=== PATIENT | female | born 1950 | race Caucasian/White ===

== ENCOUNTER 2017-03-26 20:31 | Emergency (ER) | payer MEDICARE, BC ==
[2017-03-26 20:40] VITALS: BP 135/53
--- NOTE | 2017-03-26 20:56 | EDM.PDOC ---
ED HPI GENERAL MEDICAL PROBLEM - General Chief Complaint: General Stated Complaint: back pain and SOB Time Seen by Provider: 03/26/17 20:45 Source of Information: Reports: Patient, Old Records ([facility] chart/EMR) - History of Present Illness INITIAL COMMENTS - FREE TEXT/NARRATIVE: The patient was brought to the emergency room via private automobile by her for evaluation of 8/10 sharp burning sensation in her left posterior chest wall region with no history of fall, injury, local rash, etc. Her symptoms woke her up at about 2:30 AM this past evening with last Tylenol dosage of 1000 mg at 18:00 hours this evening. She has also used some topical BioFreeze and heat with no significant improvement in symptoms. The patient denies any chest pain/pressure, heart flutter, dizziness, orthostasis, orthopnea , diaphoresis, paresthesias, recent decreased exercise tolerance, or any other anginal-type symptoms. No recent history of abdominal pain, heartburn, nausea, diarrhea, melena, gross hematochezia, or any food intolerance, including fatty foods, etc.. The patient also denies any recent fever, cough, wheezing, dyspnea , etc.. Note that the patient was recently treated for a UTI and completed doxycycline therapy on 03/24/17 with negative follow-up UA with her regular provider on that day by her history Onset: Today Onset Date: 03/26/17 Onset Time: 02:30 Duration: Constant Location: Reports: Chest (Posterior left chest region as above). Denies: Head, Face, Neck, Abdomen, Back, Pelvis, Upper Extremity, Left, Upper Extremity, Right , Lower Extremity, Left, Lower Extremity, Right, Radiates to Quality: Reports: Ache, Burning, Sharp Severity: Moderate Improves with: Reports: Rest Worsens with: Reports: Movement Context: Reports: Other (As above) Associated Symptoms: Reports: No Other Symptoms, Fever/Chills (Nonspecific as above). Denies: Confusion, Chest Pain, Cough, cough w sputum, Diaphoresis, Headaches, Loss of Appetite, Malaise, Nausea/Vomiting, Rash, Seizure, Shortness of Breath, Weakness Treatments CARE MANAGEMENT ASSOCIATE: Reports: Acetaminophen Bilateral Posterior Back Pain Score (Numeric/FACES): 8 - Related Data Allergies Allergy/AdvReac Type Severity Reaction Status Date / Time aspartame Allergy Anaphylactic Verified 03/26/17 21:02 Shock banana Allergy Shortness Verified 03/26/17 21:02 of Breath bee venom protein (honey bee) Allergy Shortness Verified 03/26/17 21:02 of Breath ciprofloxacin [From Cipro] Allergy Shortness Verified 03/26/17 21:02 of Breath clarithromycin [From Biaxin] Allergy Hives Verified 03/26/17 21:02 clindamycin Allergy Vomiting Verified 03/26/17 21:02 codeine Allergy Vomiting Verified 03/26/17 21:02 egg Allergy Vomiting Verified 03/26/17 21:02 erythromycin base Allergy Hives Verified 03/26/17 21:02 iodine Allergy Anaphylactic Verified 03/26/17 21:02 Shock levofloxacin [From Levaquin] Allergy Bronchospas Verified 03/26/17 21:02 ms lincomycin [From Lincocin] Allergy Shortness Verified 03/26/17 21:02 of Breath minerals [From Enviro Stress] Allergy Shortness Verified 03/26/17 21:02 of Breath mold Allergy Shortness Verified 03/26/17 21:02 of Breath nitrofurantoin Allergy Shortness Verified 03/26/17 21:02 [From Macrodantin] of Breath orange Allergy Swelling Verified 03/26/17 21:02 Penicillins Allergy Shortness Verified 03/26/17 21:02 of Breath shrimp Allergy Wheezing Verified 03/26/17 21:02 Sulfa (Sulfonamide Allergy Hives Verified 03/26/17 21:02 Antibiotics) vitamin B complex and C Allergy Shortness Verified 03/26/17 21:02 [From Enviro Stress] of Breath vitamin E (d-alpha Allergy Shortness Verified 03/26/17 21:02 tocopherol) of Breath [From Enviro Stress] CT dye Allergy Shortness Uncoded 03/26/17 21:05 of Breath Home Meds: Home Meds Acetaminophen [Tylenol Extra Strength] 500 mg PO Q4H PRN 03/26/17 [History] Albuterol [IJD: Ventolin HFA] 2 inh PO Q4H PRN 03/26/17 [History] Ascorbic Acid [Vitamin C] 1,000 mg PO DAILY 03/26/17 [History] Aspirin [Halfprin] 81 mg PO DAILY 03/26/17 [History] Calcium Carbonate [Calcium] 500 mg PO DAILY 03/26/17 [History] Cholecalciferol (Vitamin D3) [Vitamin D3] 2,000 unit PO DAILY 03/26/17 [History] Denosumab [Prolia] 60 mg SUBCUT Q180D 03/26/17 [History] Digoxin [Digox] 125 mcg PO Q2D 03/26/17 [History] Digoxin [Digox] 250 mcg PO Q2D 03/26/17 [History] Fish Oil/[place]-3 Fatty Acids [Fish Oil 1,000 MG] 1 tab PO DAILY 03/26/17 [ History] Fluticasone Propionate [Flonase] 0 gm NASBOTH DAILY 03/26/17 [History] Hydrocodone/Acetaminophen [[place] 5-325] 1 tab PO Q4H PRN 03/26/17 [History] Lanolin/Mineral Oil [Eucerin Original Lotion] 250 ml TP BID PRN 03/26/17 [ History] Levalbuterol HCl [Xopenex] 0.63 mg NEB Q4HRRT PRN 03/26/17 [History] Metoprolol Tartrate [Lopressor] 12.5 mg PO DAILY 03/26/17 [History] Mometasone Furoate [Asmanex 220 MCG] 14 puff INH DAILY 03/26/17 [History] Montelukast [Singulair] 10 mg PO BEDTIME 03/26/17 [History] Multivit with Calcium,Iron,Min [Essential Daily] 1 each PO DAILY 03/26/17 [ History] Mupirocin Oint [Bactroban Oint] 22 gm TOP TID PRN 03/26/17 [History] Omeprazole 40 mg PO DAILY 03/26/17 [History] Theophylline [Theophylline Anhydrous] 300 mg PO BID 03/26/17 [History] Ubidecarenone [Coenzyme Q-10] 50 mg PO BEDTIME 03/26/17 [History] Vitamin E 400 unit PO DAILY 03/26/17 [History] diphenhydrAMINE HCl [Benadryl] 25 mg PO Q4H PRN 03/26/17 [History] Past Medical History HEENT History: Reports: Allergic Rhinitis, Cataract, Other (See Below). Denies : Glaucoma, Hard of Hearing, Impaired Vision, Macular Degeneration Other HEENT History: Mild beginning cataracts with no surgery to this point, patient wears glasses Cardiovascular History: Reports: Arrhythmia, Heart Murmur, High Cholesterol, Other (See Below). Denies: Afib, Aneurysm, Blood Clots/VTE/DVT, CAD, Heart Failure, Hypertension, [place], Pacemaker, PVD Other Cardiovascular History: Sinus arrhythmia and PSVT, benign heart murmur as a child, borderline hyperlipidemia with no medical therapy, varicose veins Respiratory History: Reports: Asthma, Bronchitis, Recurrent, COPD, Pneumonia, Recurrent, Sleep Apnea, Other (See Below). Denies: PE, Pneumothorax, TB Other Respiratory History: Sleep apnea with patient not tolerating CPAP however she does use O2 at night Gastrointestinal History: Reports: Cholelithiasis, Chronic Constipation, Chronic Diarrhea, Colon Polyp, Diverticulosis, Gastritis, GERD, GI Bleed, Irritable Bowel Syndrome, PUD, Other (See Below). Denies: Celiac Disease, Hepatitis, Helicobacter Pylori, Inflammatory Bowel Disease, Jaundice, Pancreatitis Other Gastrointestinal History: Peptic ulcer disease with history of GI bleed in the 1980s, sigmoid diverticulosis Genitourinary History: Reports: Renal Calculus, UTI, Recurrent, Other (See Below ). Denies: Acute Renal Failure, Chronic Renal Insuffiency, Retention, Urinary, STD, Urinary Incontinence Other Genitourinary History: Recurrent bilateral urolithiasis : 1 Para: 1 ( delivery at 7 one half months gestation secondary to a fall during ) LMP (Approximate): Menopausal (Age 53) Musculoskeletal History: Reports: Arthritis, Back Pain, Chronic, Fracture, Fibromyalgia, Neck Pain, Chronic, Osteoarthritis, Osteoporosis, RA, Other (See Below). Denies: Amputation, Gout, SLE Other Musculoskeletal History: Complex right radial and ulnar fracture in 3 different places at about age tenderness, right wrist fracture at age 24, multiple bilateral finger fractures and feet bilaterally, scoliosis Neurological History: Reports: Headaches, Chronic, Migraines, Neuropathy, Peripheral, Other (See Below). Denies: Cerebral Aneurysms, Concussion, CVA, Head Trauma, MS, Parkinson's, Seizure, TIA Other Neuro History: Migraine headaches from age 24 until after menopause, cerebromicrovascular disease Psychiatric History: Reports: None. Denies: Abuse, Victim of, ADD, ADHD, Addiction, Anxiety, Depression, Psych Hospitalization(s), PTSD, Suicide Attempt , Suicidal Ideation Endocrine/Metabolic History: Reports: None, Osteoporosis. Denies: Diabetes, Type I, Diabetes, Type II, Hypothyroidism, IDDM Hematologic History: Reports: Anemia, Other (See Below). Denies: Blood Transfusion(s), Iron Deficiency Other Hematologic History: Anemia with chemotherapy at otherwise no problems Immunologic History: Reports: None. Denies: AIDS, HIV, SLE Oncologic (Cancer) History: Reports: Breast, Other (See Below). Denies: Colon, Hodgkin's Lymphoma, Leukemia, Malignant Melanoma, Non-Hodgkin's Lymphoma, Squamous Cell Carcinoma Other Oncologic History: Right breast cancer in 2003 with surgery as below and additional chemotherapy and radiation therapy Dermatologic History: Reports: Eczema, Other (See Below). Denies: Psoriasis Other Dermatologic History: Lymphedema of the right arm secondary to previous partial mastectomy - Infectious Disease History Infectious Disease History: Reports: Measles, Mononucleosis (Recurrent with last episode in her 40s), Mumps, Rheumatic Fever. Denies: Chicken Pox, Helicobacter Pylori, Meningitis, MRSA, Pertussis (Whooping Cough), Rubella, Scarlet Fever, Shingles, TB, VRE - Past Surgical History Head Surgeries/Procedures: Reports: None HEENT Surgical History: Reports: None. Denies: Adenoidectomy, Cataract Surgery , Eye Surgery, Laser Surgery, LASIK, Myringotomy w Tube(s), Naso-Sinus Surgery, Radiocarotid Ectomy, Tonsillectomy Cardiovascular Surgical History: Reports: None. Denies: Varicose, Vascular Surgery Respiratory Surgical History: Reports: None. Denies: Thoracentesis GI Surgical History: Reports: Cholecystectomy, Colonoscopy, EGD, Polypectomy, Other (See Below). Denies: Appendectomy, Hernia, Abdominal, Hernia, Inguinal Other GI Surgeries/Procedures: Laparoscopic cholecystectomy about age 60, colonoscopy and EGD with polypectomy from the colon of unknown type at about age 60 Female Surgical History: Reports: Breast Biopsy, Cystoscopy, Lithotripsy/ESWL , Mastectomy, Other (See Below). Denies: Section, D&C, Hysterectomy, Oophorectomy, Salpingo-Oophorectomy, Tubal Ligation Other Female Surgeries/Procedures: Partial meniscectomy at age 53 in 2003 secondary to breast cancer, lithotripsy 2 on the left side, cystoscopy on Endocrine Surgical History: Reports: None. Denies: Thyroid Biopsy Neurological Surgical History: Denies: C-Spine, Discectomy, Laminectomy, Lumbar Spine, Sacral Spine, Spinal Fusion, Vertebroplasty Musculoskeletal Surgical History: Reports: None. Denies: Arthroscopic Procedure , Carpal Tunnel, Ganglion Cyst, Joint Replacement, ORIF, Shoulder Surgery Oncologic Surgical History: Reports: Biopsy of Breast (As above), Mastectomy ( As above) Dermatological Surgical History: Reports: Skin Biopsy, Other (See Below). Denies: Plastic Surgical Reconstruction/Repair, Skin Graft Other Dermatological Surgeries/Procedures: Multiple skin biopsies for benign moles - Past Imaging History Past Imaging History: Reports: Cardiac Echo (12/21/12 with ejection fraction of 55 %), Carotid US (05/10/02), CAT Scan (CT of the abdomen and pelvis on 09/22/08, multiple CTs using renal protocol with last 2 evaluations on 07/24/[address] of the chest on 06/14/12 and 04/23/06), Mammogram (Last mammogram 2016), MRI (Brain on 08/28/10), Sleep Study (02/28/13), Ultrasound (Abdominal aortic ultrasound on 01/06/13, abdominal ultrasound on 04/23/02 and 11/17/00, soft tissue ultrasound of the neck on 06/07/10, pelvic ultrasounds on 04/26/08 and 03/10/01) Social & Family History - Family History Cardiac: Reports: High Cholesterol, Other (See Below) Other Cardiac Family History: Mother with hyperlipidemia Endocrine/Metabolic: Reports: Diabetes, type II, IDDM, Other (See Below) Other Endocrine/Metabolic Family History: Maternal uncle with IDDM Oncologic: Reports: Breast, Other (See Below) Other Oncologic Family History: Paternal grandmother and paternal aunt with breast cancer, maternal grandmother with unknown type of cancer - Tobacco Use Smoking Status *Q: Current Every Day Smoker Tobacco Use Within Last Twelve Months: Cigarettes Years of Tobacco use: 48 Packs/Tins Daily: 0.3 (Started smoking at age 18 with maximum use of one pack per day) Used Tobacco, but Quit: No Smoking Cessation Information Provided To Patient: Yes Second Hand Smoke Exposure: Yes Source of Second Hand Smoke Exposure: smokes Second Hand Smoke Education Provided: Yes - Caffeine Use Caffeine Use: Reports: None. Denies: Coffee, Energy Drinks, Soda, Tea - Alcohol Use Alcohol Use History: No Days Per Week of Alcohol Use: 0 (No previous DWIs, problems with alcohol abuse, etc.) Alcohol Use in Last Twelve Months: No - Recreational Drug Use Recreational Drug Use: Yes Drug Use in Last 12 Months: No Recreational Drug Type: Reports: Marijuana/Hashish (Marijuana use between ages 20 and 22). 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 ED EXAM, GENERAL - Physical Exam Exam: See Below Exam Limited By: No Limitations General Appearance: Alert, WD/WN, No Apparent Distress, Anxious (Mild), Other ( Mild cachexia secondary to her COPD) Eye Exam: Bilateral Eye: EOMI, Normal Inspection (No nystagmus), PERRL Nose: Normal Inspection, Normal Mucosa, No Blood Throat/Mouth: Normal Inspection, Normal Lips, Normal Gums, Normal Oropharynx, Normal Voice, No Airway Compromise. No: Normal Teeth (Multiple missing teeth), Dysphagia, Inflammation, Perioral Cyanosis Head: Atraumatic, Normocephalic. No: Facial Swelling, Facial Tenderness, Sinus Tenderness Neck: Normal Inspection, Supple, Non-Tender, Full Range of Motion. No: Lymphadenopathy (L), Lymphadenopathy (R), Thyromegaly Respiratory/Chest: No Respiratory Distress, Lungs Clear, Normal Breath Sounds, No Accessory Muscle Use, Other (Mild chest wall tenderness/palpation pain over the mid posterior chest wall with no crepitation, local skin irritation, ecchymosis, etc.). No: Pleural Rub, Retractions Cardiovascular: Normal Peripheral Pulses, Regular Rate, Rhythm, No Edema, No Gallop, No JVD, No Murmur, No Rub. No: Gallop/S3, Gallop/S4, Friction Rub Peripheral Pulses: 2+: Radial (L), Radial (R) GI/Abdominal: Normal Bowel Sounds, Soft, Non-Tender, No Organomegaly, No Distention, No Abnormal Bruit, No Mass (Female) Exam: Deferred Rectal (Female) Exam: Deferred Back Exam: Normal Inspection, Full Range of Motion. No: CVA Tenderness (L), CVA Tenderness (R), Muscle Spasm Extremities: Normal Inspection, Normal Range of Motion, Non-Tender, No Pedal Edema, Normal Capillary Refill. No: Melody's Sign Neurological: Alert, Oriented, CN II-XII Intact, Normal Cognition, Normal Gait, No Motor/Sensory Deficits Psychiatric: Anxious (Mild). No: Depressed Mood Skin Exam: Warm, Dry, Intact, Normal Color, No Rash. No: Diaphoretic, Erythema , Increased Warmth, Wound/Incision Lymphatic: No Adenopathy Course - Vital Signs Last Recorded V/S: Last Vital Signs Temp 37.2 C 03/26/17 20:32 Pulse 105 H 03/26/17 20:32 Resp 20 03/26/17 20:32 BP 135/53 L 03/26/17 20:32 Pulse Ox 95 03/26/17 20:32 Vital Signs - 24 hr 03/26/17 03/26/17 20:32 21:00 Temperature [ 36.6 C Oral] Temperature [ 37.2 C Temporal] Pulse, 105 H Peripheral [ Right Pulse Oximetry] Respiratory 20 Rate Blood Pressure 135/53 L [Left Upper Arm ] O2 Sat by Pulse 95 Oximetry - Orders/Labs/Meds Orders: Active Orders 24 hr Category Date Time Status Obtain Past Medical Record [OM.PC] Routine Oth 03/26/17 21:02 Ordered Labs: None Meds: Medications Discontinued Medications Generic Name Dose Route Start Last Admin Trade Name Alfonso PRN Reason Stop Dose Admin Methylprednisolone Acetate 80 mg 03/26/17 21:02 03/26/17 21:09 Depo-Medrol IM 03/26/17 21:03 80 mg ONETIME ONE Administration - Radiology Interpretation Free Text/Narrative:: None Departure - Departure Time of Disposition: 22:00 Disposition: Home, Self-Care 01 Condition: Good Clinical Impression: Chest wall pain, PSVT (paroxysmal supraventricular tachycardia), Peptic reflux disease COPD (chronic obstructive pulmonary disease) Qualifiers: COPD type: emphysema Emphysema type: panlobular Qualified Code(s): J43.1 - Panlobular emphysema Osteoarthritis Qualifiers: Osteoarthritis location: multiple joints Osteoarthritis type: primary Qualified Code(s): M15.0 - Primary generalized (osteo)arthritis - Discharge Information Instructions: Paroxysmal Supraventricular Tachycardia, [id number], Chest Wall Pain, [id number], Muscle Strain, [id number], Methylprednisolone Solution for Injection Referrals: Patricia Mcclain MD [Primary Care Provider] - Forms: ED Department Discharge Additional Instructions: 1. Follow up with your regular provider in 10-14 days as needed, if symptoms persist. 2. Tylenol 650 mg by mouth every 4 hours when necessary as directed. 3. BenGay or equivalent, heating pad, and/or ice packs as directed. 4. Stop all tobacco use [place] as directed/per provided information and consider contacting [facility]uit [facility], etc.. 5. Have look at your back during the next couple of days to make sure that no rash appears at site of discomfort - Problem List & Annotations (1) Chest wall pain SNOMED Code(s): 221545483 Code(s): R07.89 - OTHER CHEST PAIN Status: Acute Priority: High Onset Date: 03/26/17 Annotation/Comment:: Posterior left chest wall pain by history and clinical exam. Various therapeutic options were discussed with the patient, who did not wish to have IM Toradol. IM Depo-Medrol given. Topical therapy as per discharge instructions. Patient also given herpes zoster precautions, however no evidence of rash, etc. (2) PSVT (paroxysmal supraventricular tachycardia) SNOMED Code(s): 28341311 Code(s): I47.1 - SUPRAVENTRICULAR TACHYCARDIA Status: Chronic Priority: Medium Annotation/Comment:: No recent history of chest pain or anginal type symptoms (3) COPD (chronic obstructive pulmonary disease) SNOMED Code(s): 11521231 Code(s): J44.9 - CHRONIC OBSTRUCTIVE PULMONARY DISEASE, UNSPECIFIED Status : Chronic Priority: Medium Annotation/Comment:: Stable and O2 dependent with no recent fever or bronchitic type symptoms Qualifiers: COPD type: emphysema Emphysema type: panlobular Qualified Code(s): J43.1 - Panlobular emphysema (4) Osteoarthritis SNOMED Code(s): 670202999 Code(s): M19.90 - UNSPECIFIED OSTEOARTHRITIS, UNSPECIFIED SITE Status: Chronic Priority: Medium Annotation/Comment:: Stable by history with additional history of osteoporosis Qualifiers: Osteoarthritis location: multiple joints Osteoarthritis type: primary Qualified Code(s): M15.0 - Primary generalized (osteo)arthritis (5) Peptic reflux disease SNOMED Code(s): 68304657 Code(s): K21.9 - GASTRO-ESOPHAGEAL REFLUX DISEASE WITHOUT ESOPHAGITIS Status: Chronic Priority: Medium Annotation/Comment:: Stable by history with current medical therapy - Problem List Review Problem List Initiated/Reviewed/Updated: Yes - My Orders Last 24 Hours: My Active Orders 03/26/17 21:02 Obtain Past Medical Record [OM.PC] Routine - Assessment/Plan Last 24 Hours: My Active Orders 03/26/17 21:02 Obtain Past Medical Record [OM.PC] Routine Assessment:: As above Plan: As above. Extensive precautions were given to the patient, who is in agreement with the treatment plan. See Patient Instructions for further treatment and plan.
[2017-03-26] MEDS ORDERED: methylPREDNISolone Acetate 80 MG/ML SDV IM ONE (21:02)
== END 2017-03-26 22:00 | disposition home or self-care (01) ==
LOC: LL.ED 20:31
DX: R07.89 Other chest pain (principal); I47.1 Supraventricular tachycardia; K21.9 Gastro-esophageal reflux disease without esophagitis; J43.1 Panlobular emphysema; M15.0 Primary generalized (osteo)arthritis; E78.00 Pure hypercholesterolemia, unspecified; J45.909 Unspecified asthma, uncomplicated; M06.9 Rheumatoid arthritis, unspecified; M81.0 Age-related osteoporosis without current pathological fracture; G62.9 Polyneuropathy, unspecified; F17.210 Nicotine dependence, cigarettes, uncomplicated; Z87.442 Personal history of urinary calculi; Z87.440 Personal history of urinary (tract) infections; Z88.0 Allergy status to penicillin; Z88.1 Allergy status to other antibiotic agents; Z88.2 Allergy status to sulfonamides; Z88.5 Allergy status to narcotic agent; Z91.012 Allergy to eggs; Z91.013 Allergy to seafood; Z91.018 Allergy to other foods; Z91.041 Radiographic dye allergy status; Z91.048 Other nonmedicinal substance allergy status; Z79.82 Long term (current) use of aspirin; Z79.899 Other long term (current) drug therapy; Z85.3 Personal history of malignant neoplasm of breast; Z90.49 Acquired absence of other specified parts of digestive tract; Z98.890 Other specified postprocedural states
CPT/HCPCS: 96372; 99283; J1040; 99284

== ENCOUNTER 2020-02-18 10:31 | Emergency (ER) | payer MEDICARE, BC ==
[2020-02-18 10:38] VITALS: BP 134/61; PULSE 76
[2020-02-18 11:27] LABS: CHLORIDE,CL 99 mmol/L (98-107); SODIUM,NA 141 mmol/L (136-145)
--- NOTE | 2020-02-18 12:27 | EDM.PDOC ---
ED HPI GENERAL MEDICAL PROBLEM - General Chief Complaint: General Stated Complaint: SOB, BACK PAIN, SHAKINESS Time Seen by Provider: 02/18/20 11:14 Source of Information: Reports: Patient History Limitations: Reports: No Limitations - History of Present Illness INITIAL COMMENTS - FREE TEXT/NARRATIVE: Patient comes to ER mainly for complaint of SOB. Has not felt well for several weeks. Started February 02 on course of antibiotics for possible sinus infection. Had sinus drainage and ear pressure at time. Also more SOB. Is O2 dependent with COPD. Placed on 4 days of Prednisone simultaneously and SOB improved. Sinus also improved but still has periodic pressure in ears. No ear pain. SOB has returned. Consciously taking some bigger deeper breaths as she was noted in past to be retaining CO2 and this improved things. Notes that her chronic bilateral mid back pain is more achy than usual. Has chronic tremble/shakiness and that is also worse recently. No fever/chills/weight changes Eating and drinking per usual norm No one else sick at home. HEENT + for headache at times, frontal and posterior. Still has intermittent ear pressure. Mild runny nose (hx environmental allergies), no ST Resp + for the increased SOB. No improvement in sensation with turning up home O2 from 2 to 3L. Turned it back down to 2. No new cough. Does have chronic baseline cough however. Non productive. No chest pain/pain with inspiration. CV - for chest pain/palpitations GI negative overall for acute changes/nausea/emesis/bowel changes/blood in stools negative for acute changes/UTI complaint No new limb pain/edema. No new paresthesia/acute neuro changes. Negative C-19 test last week Does have history of migraines and chronic back pain. - Related Data Allergies Allergy/AdvReac Type Severity Reaction Status Date / Time aspartame Allergy Anaphylactic Verified 03/26/17 21:02 Shock banana Allergy Shortness Verified 03/26/17 21:02 of Breath bee venom protein (honey bee) Allergy Shortness Verified 03/26/17 21:02 of Breath ciprofloxacin [From Cipro] Allergy Shortness Verified 03/26/17 21:02 of Breath clarithromycin [From Biaxin] Allergy Hives Verified 03/26/17 21:02 clindamycin Allergy Vomiting Verified 03/26/17 21:02 codeine Allergy Vomiting Verified 03/26/17 21:02 egg Allergy Vomiting Verified 03/26/17 21:02 erythromycin base Allergy Hives Verified 03/26/17 21:02 iodine Allergy Anaphylactic Verified 03/26/17 21:02 Shock levofloxacin [From Levaquin] Allergy Bronchospas Verified 03/26/17 21:02 ms lincomycin [From Lincocin] Allergy Shortness Verified 03/26/17 21:02 of Breath minerals [From Enviro Stress] Allergy Shortness Verified 03/26/17 21:02 of Breath mold Allergy Shortness Verified 03/26/17 21:02 of Breath nitrofurantoin Allergy Shortness Verified 03/26/17 21:02 [From Macrodantin] of Breath orange Allergy Swelling Verified 03/26/17 21:02 Penicillins Allergy Shortness Verified 03/26/17 21:02 of Breath shrimp Allergy Wheezing Verified 03/26/17 21:02 Sulfa (Sulfonamide Allergy Hives Verified 03/26/17 21:02 Antibiotics) vitamin B complex and C Allergy Shortness Verified 03/26/17 21:02 [From Enviro Stress] of Breath vitamin E (d-alpha Allergy Shortness Verified 03/26/17 21:02 tocopherol) of Breath [From Enviro Stress] CT dye Allergy Shortness Uncoded 03/26/17 21:05 of Breath Home Meds: Home Meds Acetaminophen [Tylenol Extra Strength] 500 mg PO Q4H PRN 03/26/17 [History] Albuterol [IJD: Ventolin HFA] 2 inh PO Q4H PRN 03/26/17 [History] Ascorbic Acid [Vitamin C] 1,000 mg PO DAILY 03/26/17 [History] Aspirin [Halfprin] 81 mg PO DAILY 03/26/17 [History] Calcium Carbonate [Calcium] 500 mg PO DAILY 03/26/17 [History] Cholecalciferol (Vitamin D3) [Vitamin D3] 2,000 unit PO DAILY 03/26/17 [History] Denosumab [Prolia] 60 mg SUBCUT Q180D 03/26/17 [History] Digoxin [Digox] 125 mcg PO Q2D 03/26/17 [History] Digoxin [Digox] 250 mcg PO Q2D 03/26/17 [History] Fish Oil/[place]-3 Fatty Acids [Fish Oil 1,000 MG] 1 tab PO DAILY 03/26/17 [History] Fluticasone Propionate [Flonase] 0 gm NASBOTH DAILY 03/26/17 [History] Hydrocodone/Acetaminophen [Swiss 5-325] 1 tab PO Q4H PRN 03/26/17 [History] Lanolin/Mineral Oil [Eucerin Original Lotion] 250 ml TP BID PRN 03/26/17 [History] Levalbuterol HCl [Xopenex] 0.63 mg NEB Q4HRRT PRN 03/26/17 [History] Metoprolol Tartrate [Lopressor] 12.5 mg PO DAILY 03/26/17 [History] Mometasone Furoate [Asmanex 220 MCG] 14 puff INH DAILY 03/26/17 [History] Montelukast [Singulair] 10 mg PO BEDTIME 03/26/17 [History] Multivit with Calcium,Iron,Min [Essential Daily] 1 each PO DAILY 03/26/17 [History] Mupirocin Oint [Bactroban Oint] 22 gm TOP TID PRN 03/26/17 [History] Omeprazole 40 mg PO DAILY 03/26/17 [History] Theophylline [Theophylline Anhydrous] 300 mg PO BID 03/26/17 [History] Ubidecarenone [Coenzyme Q-10] 50 mg PO BEDTIME 03/26/17 [History] Vitamin E 400 unit PO DAILY 03/26/17 [History] diphenhydrAMINE HCL [Benadryl] 25 mg PO Q4H PRN 03/26/17 [History] Past Medical History HEENT History: Reports: Allergic Rhinitis, Cataract, Other (See Below). Denies: Glaucoma, Hard of Hearing, Impaired Vision, Macular Degeneration Other HEENT History: Mild beginning cataracts with no surgery to this point, patient wears glasses Cardiovascular History: Reports: Arrhythmia, Heart Murmur, High Cholesterol, Other (See Below). Denies: Afib, Aneurysm, Blood Clots/VTE/DVT, CAD, Heart Failure, Hypertension, MT, Pacemaker, PVD Other Cardiovascular History: Sinus arrhythmia and PSVT, benign heart murmur as a child, borderline hyperlipidemia with no medical therapy, varicose veins. Rheumatic Fever as child Respiratory History: Reports: Asthma, Bronchitis, Recurrent, COPD, Pneumonia, Recurrent, Sleep Apnea, Other (See Below). Denies: PE, Pneumothorax, TB Other Respiratory History: Sleep apnea with patient not tolerating CPAP however she does use O2 at night Gastrointestinal History: Reports: Cholelithiasis, Chronic Constipation, Chronic Diarrhea, Colon Polyp, Diverticulosis, Gastritis, GERD, GI Bleed, Irritable Bowel Syndrome, PUD, Other (See Below). Denies: Celiac Disease, Hepatitis, Helicobacter Pylori, Inflammatory Bowel Disease, Jaundice, Pancreatitis Other Gastrointestinal History: Peptic ulcer disease with history of GI bleed in the 1980s, sigmoid diverticulosis Genitourinary History: Reports: Renal Calculus, UTI, Recurrent, Other (See Below). Denies: Acute Renal Failure, Chronic Renal Insuffiency, Retention, Urinary, STD, Urinary Incontinence Other Genitourinary History: Recurrent bilateral urolithiasis Musculoskeletal History: Reports: Arthritis, Back Pain, Chronic, Fracture, Fibromyalgia, Neck Pain, Chronic, Osteoarthritis, Osteoporosis, RA, Other (See Below). Denies: Amputation, Gout, SLE Other Musculoskeletal History: Complex right radial and ulnar fracture in 3 different places at about age tenderness, right wrist fracture at age 24, multiple bilateral finger fractures and feet bilaterally, scoliosis Neurological History: Reports: Headaches, Chronic, Migraines, Neuropathy, Peripheral, Other (See Below). Denies: Cerebral Aneurysms, Concussion, CVA, Head Trauma, MS, Parkinson's, Seizure, TIA Other Neuro History: Migraine headaches from age 24 until after menopause, cerebromicrovascular disease Psychiatric History: Reports: None. Denies: Abuse, Victim of, ADD, ADHD, Addiction, Anxiety, Depression, Psych Hospitalization(s), PTSD, Suicide Attempt, Suicidal Ideation Endocrine/Metabolic History: Reports: None, Osteoporosis. Denies: Diabetes, Type I, Diabetes, Type II, Hypothyroidism, IDDM Hematologic History: Reports: Anemia, Other (See Below). Denies: Blood Transfusion(s), Iron Deficiency Other Hematologic History: Anemia with chemotherapy at otherwise no problems Immunologic History: Reports: None. Denies: AIDS, HIV, SLE Oncologic (Cancer) History: Reports: Breast, Other (See Below). Denies: Colon, Hodgkin's Lymphoma, Leukemia, Malignant Melanoma, Non-Hodgkin's Lymphoma, Squamous Cell Carcinoma Other Oncologic History: Right breast cancer in 2003 with surgery as below and additional chemotherapy and radiation therapy Dermatologic History: Reports: Eczema, Other (See Below). Denies: Psoriasis Other Dermatologic History: Lymphedema of the right arm secondary to previous partial mastectomy - Infectious Disease History Infectious Disease History: Reports: Measles, Mononucleosis (Recurrent with last episode in her 40s), Mumps, Rheumatic Fever. Denies: Chicken Pox, Helicobacter Pylori, Meningitis, MRSA, Pertussis (Whooping Cough), Rubella, Scarlet Fever, Shingles, TB, VRE - Past Surgical History Head Surgeries/Procedures: Reports: None HEENT Surgical History: Reports: None. Denies: Adenoidectomy, Cataract Surgery, Eye Surgery, Laser Surgery, LASIK, Myringotomy w Tube(s), Naso-Sinus Surgery, Radiocarotid Ectomy, Tonsillectomy Cardiovascular Surgical History: Reports: None. Denies: Varicose, Vascular Surgery Respiratory Surgical History: Reports: None. Denies: Thoracentesis GI Surgical History: Reports: Cholecystectomy, Colonoscopy, EGD, Polypectomy, Other (See Below). Denies: Appendectomy, Hernia, Abdominal, Hernia, Inguinal Other GI Surgeries/Procedures: Laparoscopic cholecystectomy about age 60, colonoscopy and EGD with polypectomy from the colon of unknown type at about age 60 Female Surgical History: Reports: Breast Biopsy, Cystoscopy, Lithotripsy/ESWL, Mastectomy, Other (See Below). Denies: Section, D&C, Hysterectomy, Oophorectomy, Salpingo-Oophorectomy, Tubal Ligation Other Female Surgeries/Procedures: Partial meniscectomy at age 53 in 2003 secondary to breast cancer, lithotripsy 2 on the left side, cystoscopy on 03/10/01 Endocrine Surgical History: Reports: None. Denies: Thyroid Biopsy Musculoskeletal Surgical History: Reports: None. Denies: Arthroscopic Procedure, Carpal Tunnel, Ganglion Cyst, Joint Replacement, ORIF, Shoulder Surgery Oncologic Surgical History: Reports: Biopsy of Breast (As above), Mastectomy (As above) Dermatological Surgical History: Reports: Skin Biopsy, Other (See Below). Denies: Plastic Surgical Reconstruction/Repair, Skin Graft Other Dermatological Surgeries/Procedures: Multiple skin biopsies for benign moles - Past Imaging History Past Imaging History: Reports: Cardiac Echo (12/21/12 with ejection fraction of 55%), Carotid US (05/10/02), CAT Scan (CT of the abdomen and pelvis on 09/22/08, multiple CTs using renal protocol with last 2 evaluations on 07/24/10 and 05/30/08 CT of the chest on 06/14/12 and 04/23/06), Mammogram (Last mammogram 2016), MRI (Brain on 08/28/10), Sleep Study (02/28/13), Ultrasound (Abdominal aortic ultras ound on 01/06/13, abdominal ultrasound on 04/23/02 and 11/17/00, soft tissue ultrasound of the neck on 06/07/10, pelvic ultrasounds on 04/26/08 and 03/10/01) Social & Family History - Family History Cardiac: Reports: High Cholesterol, Other (See Below) Other Cardiac Family History: Mother with hyperlipidemia Endocrine/Metabolic: Reports: Diabetes, type II, IDDM, Other (See Below) Other Endocrine/Metabolic Family History: Maternal uncle with IDDM Oncologic: Reports: Breast, Other (See Below) Other Oncologic Family History: Paternal grandmother and paternal aunt with breast cancer, maternal grandmother with unknown type of cancer - Tobacco Use Smoking Status *Q: Current Every Day Smoker Years of Tobacco use: 35 Packs/Tins Daily: 0.2 Second Hand Smoke Exposure: Yes - Caffeine Use Caffeine Use: Reports: None - Recreational Drug Use Recreational Drug Use: No - Living Situation & Occupation Living situation: Reports: (1977, 1 child), with Family () 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 ED EXAM, GENERAL - Physical Exam Exam: See Below Exam Limited By: No Limitations General Appearance: Alert, No Apparent Distress, Thin Eye Exam: Bilateral Eye: EOMI, PERRL Ears: Normal External Exam, Normal Canal, Hearing Grossly Normal, Normal TMs Nose: No: Nasal Deformity, Nasal Swelling, Nasal Drainage Throat/Mouth: Normal Lips, Normal Voice, No Airway Compromise Head: Atraumatic, Normocephalic Neck: Normal Inspection, Supple, Non-Tender, Full Range of Motion Respiratory/Chest: No Respiratory Distress, Lungs Clear, Normal Breath Sounds, No Accessory Muscle Use, Chest Non-Tender, Other (unable to take deep breath) Cardiovascular: Normal Peripheral Pulses, Regular Rate, Rhythm, No Edema, No Murmur Peripheral Pulses: 2+: Radial (L), Radial (R) GI/Abdominal: Normal Bowel Sounds, Soft, Non-Tender, No Distention (Female) Exam: Deferred Rectal (Female) Exam: Deferred Back Exam: No: CVA Tenderness (L), CVA Tenderness (R), Muscle Spasm, Vertebral Tenderness Extremities: Non-Tender, Normal Capillary Refill Neurological: Alert, Oriented, Normal Cognition, Other (equal tone/strength bilat) Psychiatric: Normal Affect, Normal Mood Skin Exam: Warm, Dry, Intact, Normal Color EKG INTERPRETATION EKG Date: 02/18/20 Time: 10:53 Rhythm: NSR Rate (Beats/Min): 75 [place]: Normal P-Wave: Present QRS: Normal ST-T: Normal QT: Normal Comparison: NA - No Prior EKG Course - Vital Signs Last Recorded V/S: Last Vital Signs Temp 36.8 C 02/18/20 10:32 Pulse 76 02/18/20 10:32 Resp 20 02/18/20 10:32 BP 134/61 02/18/20 10:32 Pulse Ox 99 02/18/20 10:32 - Orders/Labs/Meds Orders: Active Orders 24 hr Category Date Time Status EKG Documentation Completion [RC] ASDIRECTED Care 02/18/20 10:47 Active Chest 2V [CR] Stat Exams 02/18/20 10:45 Taken Labs: Laboratory Tests 02/18/20 02/18/20 02/18/20 Range/Units 10:55 10:55 10:55 WBC 7.6 (4.0-10.2) K/uL RBC 4.63 (3.77-5.09) M/uL Hgb 14.4 (11.7-15.5) g/dL Hct 46.4 H (34.0-46.0) % MCV 100.2 H (84.0-98.0) fL MCH 31.1 (28.2-33.3) pg MCHC 31.0 L (31.7-36.0) g/dL RDW 13.9 (11.2-14.1) % Plt Count 250 (150-350) K/uL Neut % (Auto) 59.1 (45.0-80.0) % Lymph % (Auto) 26.4 (10.0-50.0) % [place] % (Auto) 11.4 (2.0-14.0) % Eos % (Auto) 2.4 (0.0-5.0) % Baso % (Auto) 0.7 (0.0-2.0) % Neut # (Auto) 4.47 (1.40-7.00) K/uL Lymph # (Auto) 1.99 (0.50-3.50) K/uL [place] # (Auto) 0.86 (0.00-1.00) K/uL Eos # (Auto) 0.18 (0.00-0.50) K/uL Baso # (Auto) 0.05 (0.00-0.20) K/uL D-Dimer, Quantitative 115 (0-400) ng/mL Sodium 141 (136-145) mmol/L Potassium 4.1 (3.5-5.1) mmol/L Chloride 99 (98-107) mmol/L Carbon Dioxide 38.5 H (21.0-32.0) mmol/L BUN 11 (7-18) mg/dL Creatinine 0.59 (0.51-1.17) mg/dL Est Cr Clr Drug Dosing 62.94 mL/min Estimated GFR (MDRD) > 60 mL/min Glucose 106 (74-106) mg/dL Calcium 9.5 (8.5-10.1) mg/dL Magnesium 1.8 (1.8-2.4) mg/dL Total Bilirubin 0.6 (0.2-1.0) mg/dL AST 21 (15-37) U/L ALT 16 (12-78) U/L Alkaline Phosphatase 46 (46-116) IU/L Troponin I 0.000 (0.000-0.056) ng/mL NT-Pro-B Natriuret Pep 204 H (0-125) pg/mL Total Protein 7.3 (6.4-8.2) g/dL Albumin 3.8 (3.4-5.0) g/dL Digoxin (0.90-2.00) ng/mL 02/18/20 Range/Units 10:55 WBC (4.0-10.2) K/uL RBC (3.77-5.09) M/uL Hgb (11.7-15.5) g/dL Hct (34.0-46.0) % MCV (84.0-98.0) fL MCH (28.2-33.3) pg MCHC (31.7-36.0) g/dL RDW (11.2-14.1) % Plt Count (150-350) K/uL Neut % (Auto) (45.0-80.0) % Lymph % (Auto) (10.0-50.0) % [place] % (Auto) (2.0-14.0) % Eos % (Auto) (0.0-5.0) % Baso % (Auto) (0.0-2.0) % Neut # (Auto) (1.40-7.00) K/uL Lymph # (Auto) (0.50-3.50) K/uL [place] # (Auto) (0.00-1.00) K/uL Eos # (Auto) (0.00-0.50) K/uL Baso # (Auto) (0.00-0.20) K/uL D-Dimer, Quantitative (0-400) ng/mL Sodium (136-145) mmol/L Potassium (3.5-5.1) mmol/L Chloride (98-107) mmol/L Carbon Dioxide (21.0-32.0) mmol/L BUN (7-18) mg/dL Creatinine (0.51-1.17) mg/dL Est Cr Clr Drug Dosing mL/min Estimated GFR (MDRD) mL/min Glucose (74-106) mg/dL Calcium (8.5-10.1) mg/dL Magnesium (1.8-2.4) mg/dL Total Bilirubin (0.2-1.0) mg/dL AST (15-37) U/L ALT (12-78) U/L Alkaline Phosphatase (46-116) IU/L Troponin I (0.000-0.056) ng/mL NT-Pro-B Natriuret Pep (0-125) pg/mL Total Protein (6.4-8.2) g/dL Albumin (3.4-5.0) g/dL Digoxin 0.71 L (0.90-2.00) ng/mL - Re-Assessments/Exams Free Text/Narrative Re-Assessment/Exam: 02/18/20 12:50 Labs/xray/EKG requested. Chest xray showed COPD. No acute infiltrates/pneumothorax noted. Overall minimal change when compared to last year's xray. EKG unremarkable. Normal WBC. Troponin and DDimer normal. ProBNP minimally elevated. CO2 38 (improved from patient's self reported recent elevation over 50) Dig level subtherapeutic at 0.7 Suspect COPD exacerbation at this time. Patient reports that she usually has more of an issue in humidity/summer heat and also with pollen. All three have been an issue recently. No focal findings suggestive of infection noted. No fluid overload noted. Plan at this time is to have her start a burst of Prednisone and she was given a bottle from the ER. Precautions reviewed. To follow up with her regular clinic this coming week for recheck. At that time she should also have Digoxin doses adjusted. OK to start Magnesium supplementation. She may need referral to Pulmonary Medicine and have updated PFTs if SOB continues to be a problem. Patient in agreement with plan. Departure - Departure Time of Disposition: 12:13 Disposition: Home, Self-Care 01 Condition: Good Clinical Impression: COPD (chronic obstructive pulmonary disease) Qualifiers: COPD type: COPD with acute exacerbation Qualified Code(s): J44.1 - Chronic obstructive pulmonary disease with (acute) exacerbation - Discharge Information *PRESCRIPTION DRUG MONITORING PROGRAM REVIEWED*: Not Applicable *COPY OF PRESCRIPTION DRUG MONITORING REPORT IN PATIENT JIMMIE: Not Applicable Referrals: PCP,Unknown [Primary Care Provider] - Forms: ED Department Discharge Additional Instructions: Take the Prednisone tabs: 4 tabs daily days 1 and 2. 3 tabs daily days 3 and 4 2 tabs daily until remaining pills gone. See if this improves your breathing. OK to try CBD oil as discussed for pain. Start around 5-10mg daily and give it time to take effect. Take the larger dose of Digoxin 4 days in a row and get Dig level rechecked at clinic later this week. Given the low blood level today you will need to adjust your weekly Dig plan so that your level remains in therapeutic range. Start Magnesium Glycinate or Taurate 250-400mg daily Call if you have questions. Return to ER if you feel worse. Otherwise follow up at your clinic for recheck this coming week. Sepsis Event Note (ED) - Evaluation Sepsis Screening Result: No Definite Risk - Focused Exam Vital Signs: Vital Signs Temp Pulse Resp BP Pulse Ox 02/18/20 10:32 36.8 C 76 20 134/61 99 - My Orders Last 24 Hours: My Active Orders 02/18/20 10:45 Chest 2V [CR] Stat 02/18/20 10:47 EKG Documentation Completion [RC] ASDIRECTED - Assessment/Plan Last 24 Hours: My Active Orders 02/18/20 10:45 Chest 2V [CR] Stat 02/18/20 10:47 EKG Documentation Completion [RC] ASDIRECTED
== END 2020-02-18 12:52 | disposition home or self-care (01) ==
LOC: LL.ED 10:31
DX: J44.1 Chronic obstructive pulmonary disease with (acute) exacerbation (principal); K21.9 Gastro-esophageal reflux disease without esophagitis; F17.210 Nicotine dependence, cigarettes, uncomplicated; Z88.8 Allergy status to other drugs, medicaments and biological substances; Z88.1 Allergy status to other antibiotic agents; Z91.018 Allergy to other foods; Z91.030 Bee allergy status; Z88.6 Allergy status to analgesic agent; Z91.012 Allergy to eggs; Z91.048 Other nonmedicinal substance allergy status; Z88.0 Allergy status to penicillin; Z91.013 Allergy to seafood; Z88.2 Allergy status to sulfonamides; Z91.041 Radiographic dye allergy status; Z79.82 Long term (current) use of aspirin; Z79.899 Other long term (current) drug therapy; Z87.442 Personal history of urinary calculi; Z87.440 Personal history of urinary (tract) infections; Z90.49 Acquired absence of other specified parts of digestive tract; Z98.890 Other specified postprocedural states
CPT/HCPCS: 36415; 71046; 80053; 80162; 83735; 83880; 84484; 85025; 85379; 93005; 99285-25

== ENCOUNTER 2020-03-28 07:39 | Observation (INO) | payer MEDICARE, BC ==
--- NOTE | 2020-03-28 08:46 | EDM.PDOC ---
ED HPI GENERAL MEDICAL PROBLEM - General Chief Complaint: General Stated Complaint: fall, pushed front teeth back Time Seen by Provider: 03/28/20 08:00 Source of Information: Reports: Patient History Limitations: Reports: No Limitations - History of Present Illness INITIAL COMMENTS - FREE TEXT/NARRATIVE: Patient got up this morning and was ambulating at her home when she fell face forward onto the floor. Fell in kitchen. No LOC. Has peripheral neuropathy and wonders if that is part of reason she fell. Otherwise she does not recall why she fell, no specific tripping over an obstacle etc. The fall resulted in her front upper teeth becoming slightly pushed back, and bruising left jew and left chest. Has been dizzy/lightheaded since fall. Is not reporting any other a cute changes. No recent health changes/illnesses. HEENT + for bruise lateral left eye area/teeth pushed inward. No vision changes. No ear pain/changes. Denies nasal pain. Neck: No pain complaint. Chest: has bruise left chest/chest aches. CV: no palpitations/syncope Resp: has chronic baseline SOB due to severe COPD/is on home O2. This is unchanged per patient. No new cough/sputum production reported. GI: No nausea/emesis/abdominal pain/bowel change : no reported changes MS: no new limb pain/injury Neuro: has peripheral neuropathy. No acute changes. Is dizzy since fall. mouth pain Pain Score (Numeric/FACES): 8 - Related Data Allergies Allergy/AdvReac Type Severity Reaction Status Date / Time aspartame Allergy Anaphylactic Verified 03/26/17 21:02 Shock banana Allergy Shortness Verified 03/26/17 21:02 of Breath bee venom protein (honey bee) Allergy Shortness Verified 03/26/17 21:02 of Breath ciprofloxacin [From Cipro] Allergy Shortness Verified 03/26/17 21:02 of Breath clarithromycin [From Biaxin] Allergy Hives Verified 03/26/17 21:02 clindamycin Allergy Vomiting Verified 03/26/17 21:02 codeine Allergy Vomiting Verified 03/26/17 21:02 egg Allergy Vomiting Verified 03/28/20 07:45 erythromycin base Allergy Hives Verified 03/28/20 07:45 iodine Allergy Anaphylactic Verified 03/28/20 07:45 Shock levofloxacin [From Levaquin] Allergy Bronchospas Verified 03/28/20 07:45 ms lincomycin [From Lincocin] Allergy Shortness Verified 03/28/20 07:45 of Breath minerals [From Enviro Stress] Allergy Shortness Verified 03/28/20 07:45 of Breath mold Allergy Shortness Verified 03/28/20 07:45 of Breath nitrofurantoin Allergy Shortness Verified 03/28/20 07:45 [From Macrodantin] of Breath orange Allergy Swelling Verified 03/28/20 07:45 Penicillins Allergy Shortness Verified 03/28/20 07:45 of Breath shrimp Allergy Wheezing Verified 03/28/20 07:45 Sulfa (Sulfonamide Allergy Hives Verified 03/28/20 07:45 Antibiotics) vitamin B complex and C Allergy Shortness Verified 03/28/20 07:45 [From Enviro Stress] of Breath vitamin E (d-alpha Allergy Shortness Verified 03/28/20 07:45 tocopherol) of Breath [From Enviro Stress] CT dye Allergy Shortness Uncoded 03/26/17 21:05 of Breath Home Meds: Home Meds Acetaminophen [Tylenol Extra Strength] 500 mg PO Q4H PRN 03/26/17 [History] Albuterol [IJD: Ventolin HFA] 2 inh PO Q4H PRN 03/26/17 [History] Ascorbic Acid [Vitamin C] 1,000 mg PO DAILY 03/26/17 [History] Aspirin [Halfprin] 81 mg PO DAILY 03/26/17 [History] Calcium Carbonate [Calcium] 500 mg PO DAILY 03/26/17 [History] Cholecalciferol (Vitamin D3) [Vitamin D3] 2,000 unit PO DAILY 03/26/17 [History] Denosumab [Prolia] 60 mg SUBCUT Q180D 03/26/17 [History] Digoxin [Digox] 125 mcg PO Q2D 03/26/17 [History] Digoxin [Digox] 250 mcg PO Q2D 03/26/17 [History] Fish Oil/[place]-3 Fatty Acids [Fish Oil 1,000 MG] 1 tab PO DAILY 03/26/17 [History] Fluticasone Propionate [Flonase] 0 gm NASBOTH DAILY 03/26/17 [History] Hydrocodone/Acetaminophen [[place] 5-325] 1 tab PO Q4H PRN 03/26/17 [History] Lanolin/Mineral Oil [Eucerin Original Lotion] 250 ml TP BID PRN 03/26/17 [History] Levalbuterol HCl [Xopenex] 0.63 mg NEB Q4HRRT PRN 03/26/17 [History] Metoprolol Tartrate [Lopressor] 12.5 mg PO DAILY 03/26/17 [History] Montelukast [Singulair] 10 mg PO BEDTIME 03/26/17 [History] Multivit with Calcium,Iron,Min [Essential Daily] 1 each PO DAILY 03/26/17 [History] Mupirocin Oint [Bactroban Oint] 22 gm TOP TID PRN 03/26/17 [History] Omeprazole 40 mg PO DAILY 03/26/17 [History] Theophylline [Theophylline Anhydrous] 300 mg PO BID 03/26/17 [History] Ubidecarenone [Coenzyme Q-10] 50 mg PO BEDTIME 03/26/17 [History] Vitamin E 400 unit PO DAILY 03/26/17 [History] diphenhydrAMINE HCL [Benadryl] 25 mg PO Q4H PRN 03/26/17 [History] Budesonide [Pulmicort] 0.5 mg IH BID 03/28/20 [History] Past Medical History HEENT History: Reports: Allergic Rhinitis, Cataract, Other (See Below) Other HEENT History: Mild beginning cataracts with no surgery to this point, patient wears glasses Cardiovascular History: Reports: Arrhythmia, Heart Murmur, High Cholesterol, Other (See Below) Other Cardiovascular History: Sinus arrhythmia and PSVT, benign heart murmur as a child, borderline hyperlipidemia with no medical therapy, varicose veins. Rheumatic Fever as child Respiratory History: Reports: Asthma, Bronchitis, Recurrent, COPD, Pneumonia, Recurrent, Sleep Apnea, Other (See Below) Other Respiratory History: Sleep apnea with patient not tolerating CPAP however she does use O2 at night Gastrointestinal History: Reports: Cholelithiasis, Chronic Constipation, Chronic Diarrhea, Colon Polyp, Diverticulosis, Gastritis, GERD, GI Bleed, Irritable Bowel Syndrome, PUD, Other (See Below) Other Gastrointestinal History: Peptic ulcer disease with history of GI bleed in the 1980s, sigmoid diverticulosis Genitourinary History: Reports: Renal Calculus, UTI, Recurrent, Other (See Below) Other Genitourinary History: Recurrent bilateral urolithiasis Musculoskeletal History: Reports: Arthritis, Back Pain, Chronic, Fracture, Fibromyalgia, Neck Pain, Chronic, Osteoarthritis, Osteoporosis, RA, Other (See Below) Other Musculoskeletal History: Complex right radial and ulnar fracture in 3 different places at about age tenderness, right wrist fracture at age 24, multiple bilateral finger fractures and feet bilaterally, scoliosis Neurological History: Reports: Headaches, Chronic, Migraines, Neuropathy, Peripheral, Other (See Below) Other Neuro History: Migraine headaches from age 24 until after menopause, cerebromicrovascular disease Psychiatric History: Reports: None Endocrine/Metabolic History: Reports: None, Osteoporosis Hematologic History: Reports: Anemia, Other (See Below) Other Hematologic History: Anemia with chemotherapy at otherwise no problems Immunologic History: Reports: None Oncologic (Cancer) History: Reports: Breast, Other (See Below) Other Oncologic History: Right breast cancer in 2003 with surgery as below and additional chemotherapy and radiation therapy Dermatologic History: Reports: Eczema, Other (See Below) Other Dermatologic History: Lymphedema of the right arm secondary to previous partial mastectomy - Infectious Disease History Infectious Disease History: Reports: None - Past Surgical History Head Surgeries/Procedures: Reports: None HEENT Surgical History: Reports: None Cardiovascular Surgical History: Reports: None Respiratory Surgical History: Reports: None GI Surgical History: Reports: Cholecystectomy, Colonoscopy, EGD, Polypectomy, Other (See Below) Other GI Surgeries/Procedures: Laparoscopic cholecystectomy about age 60, colonoscopy and EGD with polypectomy from the colon of unknown type at about age 60 Female Surgical History: Reports: Breast Biopsy, Cystoscopy, Lithotripsy /ESWL, Mastectomy, Other (See Below) Other Female Surgeries/Procedures: Partial meniscectomy at age 53 in 2003 secondary to breast cancer, lithotripsy 2 on the left side, cystoscopy on 03/10/01 Endocrine Surgical History: Reports: None Musculoskeletal Surgical History: Reports: None Oncologic Surgical History: Reports: Biopsy of Breast, Mastectomy Dermatological Surgical History: Reports: Skin Biopsy, Other (See Below) - Past Imaging History Past Imaging History: Reports: Cardiac Echo (12/21/12 with ejection fraction of 55%), Carotid US (05/10/02), CAT Scan (CT of the abdomen and pelvis on 09/22/08, multiple CTs using renal protocol with last 2 evaluations on 07/24/10 and 05/30/08 CT of the chest on 06/14/12 and 04/23/06), Mammogram (Last mammogram 2016), MRI (Brain on 08/28/10), Sleep Study (02/28/13), Ultrasound (Abdominal aortic ultrasound on 01/06/13, abdominal ultrasound on 04/23/02 and 11/17/00, soft tissue ultrasound of the neck on 06/07/10, pelvic ultrasounds on 04/26/08 and 03/10/01) Social & Family History - Family History Cardiac: Reports: High Cholesterol, Other (See Below) Other Cardiac Family History: Mother with hyperlipidemia Endocrine/Metabolic: Reports: Diabetes, type II, IDDM, Other (See Below) Other Endocrine/Metabolic Family History: Maternal uncle with IDDM Oncologic: Reports: Breast, Other (See Below) Other Oncologic Family History: Paternal grandmother and paternal aunt with breast cancer, maternal grandmother with unknown type of cancer - Tobacco Use Smoking Status *Q: Current Every Day Smoker Years of Tobacco use: 35 Packs/Tins Daily: 0.2 - Caffeine Use Caffeine Use: Reports: None - Recreational Drug Use Recreational Drug Use: No - Living Situation & Occupation Living situation: Reports: (1975, 1 child), with Family () Occupation: Disabled (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 ED EXAM, GENERAL - Physical Exam Exam: See Below Exam Limited By: No Limitations General Appearance: Alert, No Apparent Distress, Thin, Other (Sitting upright in bed with knees bent.) Eye Exam: Left Eye: Other (small skin tear/bruising left lateral eyebrow. Orbits appear intact), Bilateral Eye: EOMI, PERRL Ears: Normal External Exam, Normal Canal, Hearing Grossly Normal, Normal TMs Nose: No: Nasal Deformity, Nasal Swelling, Nasal Drainage Throat/Mouth: Normal Lips, Normal Voice, No Airway Compromise, Other (Front uppe r teeth mildly bloody at bases, pushed slightly backward compared to adjacent teeth. Chipping of one tooth is observed but patient says that is old. ) Head: Facial Tenderness (left lateral eyebrow) Neck: Non-Tender, Full Range of Motion Respiratory/Chest: No Respiratory Distress, No Accessory Muscle Use, Other (Patient unable to take deep breaths due to COPD. No obvious wheezing/rales/rhonchi. Has small bruise/mild edema on chest wall adjacent to left lower sternum. ) Cardiovascular: Regular Rate, Rhythm, No Murmur GI/Abdominal: Soft, Non-Tender, Pelvis Stable (Female) Exam: Deferred Rectal (Female) Exam: Deferred Back Exam: Other (mild diffuse discomfort with palpation over back, no focal increased tenderness noted) Extremities: Normal Inspection, Non-Tender Neurological: Alert, Oriented, CN II-XII Intact, Normal Cognition, Other (equal tone/strength bilaterally) Psychiatric: Normal Affect, Normal Mood Skin Exam: Warm, Dry Course - Vital Signs Last Recorded V/S: Last Vital Signs Temp 36.0 C L 03/28/20 07:42 Pulse 88 03/28/20 09:34 Resp 20 03/28/20 07:42 BP 140/70 03/28/20 07:42 Pulse Ox 95 03/28/20 07:42 - Orders/Labs/Meds Orders: Active Orders 24 hr Category Date Time Status Chest 1V Frontal [CR] Stat Exams 03/28/20 08:32 Ordered Head wo Cont [CT] Stat Exams 03/28/20 08:27 Ordered Labs: Laboratory Tests 03/28/20 03/28/20 Range/Units 08:50 08:50 WBC 10.1 (4.0-10.2) K/uL RBC 4.49 (3.77-5.09) M/uL Hgb 14.1 (11.7-15.5) g/dL Hct 45.5 (34.0-46.0) % MCV 101.3 H (84.0-98.0) fL MCH 31.4 (28.2-33.3) pg MCHC 31.0 L (31.7-36.0) g/dL RDW 13.7 (11.2-14.1) % Plt Count 278 (150-350) K/uL Neut % (Auto) 80.2 H (45.0-80.0) % Lymph % (Auto) 9.1 L (10.0-50.0) % [place] % (Auto) 8.6 (2.0-14.0) % Eos % (Auto) 1.8 (0.0-5.0) % Baso % (Auto) 0.3 (0.0-2.0) % Neut # (Auto) 8.11 H (1.40-7.00) K/uL Lymph # (Auto) 0.92 (0.50-3.50) K/uL [place] # (Auto) 0.87 (0.00-1.00) K/uL Eos # (Auto) 0.18 (0.00-0.50) K/uL Baso # (Auto) 0.03 (0.00-0.20) K/uL Sodium 141 (136-145) mmol/L Potassium 4.6 (3.5-5.1) mmol/L Chloride 102 (98-107) mmol/L Carbon Dioxide 38.3 H (21.0-32.0) mmol/L BUN 14 (7-18) mg/dL Creatinine 0.55 (0.51-1.17) mg/dL Est Cr Clr Drug Dosing 67.52 mL/min Estimated GFR (MDRD) > 60 mL/min Glucose 110 H (74-106) mg/dL Calcium 8.9 (8.5-10.1) mg/dL Magnesium 1.8 (1.8-2.4) mg/dL Total Bilirubin 0.4 (0.2-1.0) mg/dL AST 17 (15-37) U/L ALT 17 (12-78) U/L Alkaline Phosphatase 45 L (46-116) IU/L Total Protein 6.6 (6.4-8.2) g/dL Albumin 3.4 (3.4-5.0) g/dL Digoxin 0.66 L (0.90-2.00) ng/mL Meds: Medications Discontinued Medications Generic Name Dose Route Start Last Admin Trade Name Fernandoq PRN Reason Stop Dose Admin Acetaminophen 650 mg 03/28/20 09:26 03/28/20 09:31 Tylenol PO 03/28/20 09:27 650 mg NOW ONE Administration Digoxin 250 mcg 03/28/20 09:26 03/28/20 09:34 Lanoxin PO 03/28/20 09:27 250 mcg ONETIME ONE Administration - Re-Assessments/Exams Free Text/Narrative Re-Assessment/Exam: 03/28/20 09:04 Baseline labs requested. Given the blow to her face and continued dizziness since fall, pros and cons of CT imaging discussed with patient in regards to ruling out intracranial bleed. She elected to have a CT scan. 03/28/20 09:27 Noted by Radiology to have small change on scan suggestive of acute subdural left tentorium region/no midline shift. Call placed to Neurosurgery at [facility], , and patient reviewed with him. He recommended observation and repeat scan in 6-8 hours to make certain it is stable. If so, patient can be discharged home. She is on 81mg ASA daily and no other blood thinners. Dig level subtherapeutic. Is retaining CO2 due to her COPD/elevated level noted on blood work. Normal WBC/Hgb. Given the acute trauma to her front teeth plan formulated where patient will be allowed to leave so that she can see her dentist at 10am in regards to the dental injury. She will return to our facility immediately afterwards and will be placed on observation for rest of day/overnight. Repeat scan in 8 hours planned. Departure - Departure Time of Disposition: 09:34 Disposition: Refer to Observation Condition: Good Clinical Impression: Fall, Subdural bleeding, Contusion of face, Contusion, chest wall - Discharge Information *PRESCRIPTION DRUG MONITORING PROGRAM REVIEWED*: Not Applicable *COPY OF PRESCRIPTION DRUG MONITORING REPORT IN PATIENT JIMMIE: Not Applicable Referrals: PCP,None [Primary Care Provider] - Forms: ED Department Discharge Sepsis Event Note (ED) - Evaluation Sepsis Screening Result: No Definite Risk - Focused Exam Vital Signs: Vital Signs Temp Pulse Pulse Resp BP Pulse Ox 03/28/20 09:34 88 03/28/20 07:42 36.0 C L 82 20 140/70 95 - Problem List & Annotations (1) Subdural bleeding SNOMED Code(s): 26404868 Code(s): I62.00 - NONTRAUMATIC SUBDURAL HEMORRHAGE, UNSPECIFIED Status: Acute Priority: High Current Visit: Yes Annotation/Comment:: Admit observation. Repeat scan in 8 hours. (2) Contusion of face SNOMED Code(s): 028175342 Code(s): S00.83XA - CONTUSION OF OTHER PART OF HEAD, INITIAL ENCOUNTER Status: Acute Priority: Medium Current Visit: Yes Annotation/Comment:: Small subdural noted on CT of head. Qualifiers: Encounter type: initial encounter Qualified Code(s): S00.83XA - Contusion of other part of head, initial encounter (3) Contusion, chest wall SNOMED Code(s): 03879898 Code(s): S20.219A - CONTUSION OF UNSPECIFIED FRONT WALL OF THORAX, INIT ENCNTR Status: Acute Priority: Low Current Visit: Yes Qualifiers: Encounter type: initial encounter Laterality: left Qualified Code(s): S20.212A - Contusion of left front wall of thorax, initial encounter (4) Fall SNOMED Code(s): 8407728, 937950849 Code(s): W19.XXXA - UNSPECIFIED FALL, INITIAL ENCOUNTER Status: Acute Priority: Medium Current Visit: Yes Qualifiers: Encounter type: initial encounter Qualified Code(s): W19.XXXA - Unspecified fall, initial encounter (5) COPD (chronic obstructive pulmonary disease) SNOMED Code(s): 13591946 Code(s): J44.9 - CHRONIC OBSTRUCTIVE PULMONARY DISEASE, UNSPECIFIED Status: Chronic Priority: Medium Current Visit: No Annotation/Comment:: Stable and O2 dependent with no recent fever or bronchitic type symptoms Qualifiers: COPD type: COPD with acute exacerbation Qualified Code(s): J44.1 - Chronic obstructive pulmonary disease with (acute) exacerbation (6) Osteoarthritis SNOMED Code(s): 739132355 Code(s): M19.90 - UNSPECIFIED OSTEOARTHRITIS, UNSPECIFIED SITE Status: Chronic Priority: Medium Current Visit: No Annotation/Comment:: Stable by history with additional history of osteoporosis Qualifiers: Osteoarthritis location: multiple joints Osteoarthritis type: primary Qualified Code(s): M89.49 - Other hypertrophic osteoarthropathy, multiple sites (7) Peptic reflux disease SNOMED Code(s): 925830654 Code(s): K21.9 - GASTRO-ESOPHAGEAL REFLUX DISEASE WITHOUT ESOPHAGITIS Status: Chronic Priority: Medium Current Visit: No Annotation/Comment:: Stable by history with current medical therapy. (8) History of PSVT (paroxysmal supraventricular tachycardia) SNOMED Code(s): 140093825231151 Code(s): Z86.79 - PERSONAL HISTORY OF OTHER DISEASES OF THE CIRCULATORY SYSTEM Status: Acute Priority: Low Current Visit: No Annotation/Comment:: Noted to have low Digoxin level. Will give additional dose of Digoxin and have patient follow up for additional monitoring/dose adjustments with her primary care provider. - Problem List Review Problem List Initiated/Reviewed/Updated: Yes - My Orders Last 24 Hours: My Active Orders 03/28/20 08:27 Head wo Cont [CT] Stat 03/28/20 08:32 Chest 1V Frontal [CR] Stat - Assessment/Plan Admission H&P: Please use this note as an admission H&P Last 24 Hours: My Active Orders 03/28/20 08:27 Head wo Cont [CT] Stat 03/28/20 08:32 Chest 1V Frontal [CR] Stat Assessment:: as above. Stable and suitable for general supervision Plan: as above. Anticipate discharge tomorrow morning if repeat scan shows no significant worsening of bleed and if patient does well overnight.
[2020-03-28 09:18] LABS: CHLORIDE,CL 102 mmol/L (98-107); SODIUM,NA 141 mmol/L (136-145)
[2020-03-28] MEDS ORDERED: Digoxin 250 MCG Tab PO ONE (09:26)
[2020-03-28] MEDS ORDERED: Acetaminophen 325 MG Tab PO ONE ×2 (09:26→13:31)
[2020-03-28] MEDS ORDERED: MINERAL OIL TP PRN (14:13)
[2020-03-28] MEDS ORDERED: LANOLIN TP PRN (14:13)
[2020-03-28] MEDS ORDERED: Albuterol HFA 8.5 GM Inhaler INH PRN (14:57)
--- NOTE | 2020-03-28 15:27 | PCM.SN.2 ---
- Free Text/Narrative Note: Repeat CT of head shows stable appearance of small left tentorial subdural hematoma. Continue to observe for changes.
[2020-03-28] MEDS: Acetaminophen/HYDROcodone 325-5 MG Tab PO PRN ×2 (16:29→23:48)
[2020-03-28] MEDS: Levalbuterol HCl 0.63 MG/3 ML Neb INH PRN ×2 (16:33→21:02)
[2020-03-28] MEDS ORDERED: Acetaminophen 500 MG Tab PO PRN (18:00)
[2020-03-28] MEDS ORDERED: Tiotropium Inhaler 18 MCG Inhalation Powder Cap Kit of 5 INH SCH (18:00)
[2020-03-28] MEDS: Theophylline 300 MG Tab.ER PO SCH (19:48)
[2020-03-28] MEDS ORDERED: Montelukast 10 MG Tab PO SCH (20:00)
[2020-03-28] MEDS: Budesonide 0.5 MG/2 ML Neb Susp INH SCH (21:00)
[2020-03-29] MEDS ORDERED: Omeprazole 20 MG Cap.CR PO SCH (08:00)
[2020-03-29] MEDS ORDERED: Metoprolol Tartrate 25 MG Tab PO SCH (08:00)
[2020-03-29] MEDS ORDERED: Fluticasone Propionate Nasal Spray 16 GM Bottle NASBOTH SCH (08:00)
[2020-03-29] MEDS ORDERED: Digoxin 125 MCG Tab PO SCH (08:00)
[2020-03-29] MEDS: Budesonide 0.5 MG/2 ML Neb Susp INH SCH (08:14)
[2020-03-29] MEDS: Theophylline 300 MG Tab.ER PO SCH (08:14)
--- NOTE | 2020-03-29 12:11 | PCM.DCSUM1 ---
Discharge Summary - Hospital Course Brief History: Admitted observation after fall at home. Small subdural bleed noted on CT. Contusion left chest/left forehead. Diagnosis: Stroke: No - Discharge Data Discharge Date: 03/29/20 Discharge Disposition: Home, Self-Care 01 Condition: Good - Referral to Home Health Primary Care Physician: PCP None - Discharge Diagnosis/Problem(s) (1) Traumatic subdural hematoma SNOMED Code(s): 189994480 ICD Code: S06.5X9A - TRAUM SUBDR HEM W LOC OF UNSP DURATION, INIT Status: Acute Priority: High Current Visit: Yes Problem Details: Small left sided subdural hematoma. Repeat scanning 6 hours later showed no acute changes and bleed appeared stable. Patient reviewed with from [facility] yesterday after initial CT. He felt that patient could be discharged home if she remained stable after repeat CT and did well while under observation. Qualifiers: Encounter type: initial encounter Loss of consciousness presence/duration: without LOC Qualified Code(s): S06.5X0A - Traumatic subdural hemorrhage without loss of consciousness, initial encounter (2) Contusion of face SNOMED Code(s): 651231278 ICD Code: S00.83XA - CONTUSION OF OTHER PART OF HEAD, INITIAL ENCOUNTER Status: Acute Priority: Medium Current Visit: Yes Problem Details: Small subdural noted on CT of head. Qualifiers: Encounter type: initial encounter Qualified Code(s): S00.83XA - Contusion of other part of head, initial encounter (3) Contusion, chest wall SNOMED Code(s): 26600650 ICD Code: S20.219A - CONTUSION OF UNSPECIFIED FRONT WALL OF THORAX, INIT ENCN TR Status: Acute Priority: Low Current Visit: Yes Problem Details: Bruising left chest adjacent to sternum. Qualifiers: Encounter type: initial encounter Laterality: left Qualified Code(s): S20.212A - Contusion of left front wall of thorax, initial encounter (4) Fall SNOMED Code(s): 6467743, 233240958 ICD Code: W19.XXXA - UNSPECIFIED FALL, INITIAL ENCOUNTER Status: Acute Priority: Medium Current Visit: Yes Problem Details: Fell in kitchen at home Qualifiers: Encounter type: initial encounter Qualified Code(s): W19.XXXA - Unspecified fall, initial encounter (5) COPD (chronic obstructive pulmonary disease) SNOMED Code(s): 17538999 ICD Code: J44.9 - CHRONIC OBSTRUCTIVE PULMONARY DISEASE, UNSPECIFIED Status: Chronic Priority: Medium Current Visit: No Problem Details: Stable and O2 dependent with no recent fever or bronchitic type symptoms Qualifiers: COPD type: unspecified COPD Qualified Code(s): J44.9 - Chronic obstructive pulmonary disease, unspecified (6) Osteoarthritis SNOMED Code(s): 987535931 ICD Code: M19.90 - UNSPECIFIED OSTEOARTHRITIS, UNSPECIFIED SITE Status: Chronic Priority: Medium Current Visit: No Problem Details: Stable by history with additional history of osteoporosis Qualifiers: Osteoarthritis location: multiple joints Osteoarthritis type: primary Qualified Code(s): M89.49 - Other hypertrophic osteoarthropathy, multiple sites (7) Peptic reflux disease SNOMED Code(s): 915769067 ICD Code: K21.9 - GASTRO-ESOPHAGEAL REFLUX DISEASE WITHOUT ESOPHAGITIS Status: Chronic Priority: Medium Current Visit: No Problem Details: Stable by history with current medical therapy. (8) History of PSVT (paroxysmal supraventricular tachycardia) SNOMED Code(s): 623370270171291 ICD Code: Z86.79 - PERSONAL HISTORY OF OTHER DISEASES OF THE CIRCULATORY SYSTEM Status: Acute Priority: Low Current Visit: No Problem Details: Noted to have low Digoxin level. Will give additional dose of Digoxin and have patient follow up for additional monitoring/dose adjustments with her primary care provider. (9) Dental trauma SNOMED Code(s): 296297419 ICD Code: S09.93XA - UNSPECIFIED INJURY OF FACE, INITIAL ENCOUNTER Status: Acute Priority: Low Current Visit: Yes Problem Details: Was evaluated by dentist yesterday and had dental splint placed to stabilize injured upper incisors. Qualifiers: Encounter type: initial encounter Qualified Code(s): S09.93XA - Unspecified injury of face, initial encounter - Patient Summary/Data Hospital Course: Patient complains of general soreness from fall but otherwise has done well overnight. Did take pain pills for facial discomfort/headache. Second scan performed and negative for acute changes in the subdural 6 hours after initial scan. OK to discharge home. Precautions reviewed prior to discharge. Patient needs to have Digoxin level checked within the next week and dosage adjusted as needed by primary provider. If left anterior chest pain does not improve recommend xray in 10 days to reassess for any rib fractures. If any neuro changes are observed she needs to return to the ER for re-evaluation and new scan. Patient and are comfortable with the plan. - Patient Instructions Diet: Anti-Inflammatory Activity: As Tolerated Other/Special Instructions: Have your Digoxin level rechecked within the next week and discuss any needed dose changes with your primary provider. It was low when we checked it yesterday. If your left chest still is not significantly improving by day 9 or 10, have them check a new rib series/xrays. If you have any neuro changes/confusion please get right back to the ER so that you can be rechecked and rescanned! - Discharge Plan *PRESCRIPTION DRUG MONITORING PROGRAM REVIEWED*: Not Applicable *COPY OF PRESCRIPTION DRUG MONITORING REPORT IN PATIENT JIMMIE: Not Applicable Prescriptions/Med Rec: Acetaminophen/HYDROcodone [Ephrata 325-5 MG] 1 tab PO Q4H PRN #15 tablet PRN Reason: Pain predniSONE 20 mg PO DAILY #5 tab Home Medications: Home Meds Acetaminophen [Tylenol Extra Strength] 500 mg PO Q4H PRN 03/26/17 [History] Albuterol [IJD: Ventolin HFA] 2 inh PO Q4H PRN 03/26/17 [History] Ascorbic Acid [Vitamin C] 1,000 mg PO DAILY 03/26/17 [History] Aspirin [Halfprin] 81 mg PO DAILY 03/26/17 [History] Calcium Carbonate [Calcium] 500 mg PO DAILY 03/26/17 [History] Cholecalciferol (Vitamin D3) [Vitamin D3] 2,000 unit PO DAILY 03/26/17 [History] Denosumab [Prolia] 60 mg SUBCUT Q180D 03/26/17 [History] Digoxin [Digox] 125 mcg PO Q2D 03/26/17 [History] Digoxin [Digox] 250 mcg PO Q2D 03/26/17 [History] Fish Oil/Buford-3 Fatty Acids [Fish Oil 1,000 MG] 1 tab PO DAILY 03/26/17 [History] Fluticasone Propionate [Flonase] 0 gm NASBOTH DAILY 03/26/17 [History] Hydrocodone/Acetaminophen [Ephrata 5-325] 1 tab PO Q4H PRN 03/26/17 [History] Lanolin/Mineral Oil [Eucerin Original Lotion] 250 ml TP BID PRN 03/26/17 [History] Levalbuterol HCl [Xopenex] 0.63 mg NEB Q4HRRT PRN 03/26/17 [History] Metoprolol Tartrate [Lopressor] 12.5 mg PO DAILY 03/26/17 [History] Montelukast [Singulair] 10 mg PO BEDTIME 03/26/17 [History] Multivit with Calcium,Iron,Min [Essential Daily] 1 each PO DAILY 03/26/17 [History] Mupirocin Oint [Bactroban Oint] 22 gm TOP TID PRN 03/26/17 [History] Omeprazole 40 mg PO DAILY 03/26/17 [History] Theophylline [Theophylline Anhydrous] 300 mg PO BID 03/26/17 [History] Ubidecarenone [Coenzyme Q-10] 50 mg PO BEDTIME 03/26/17 [History] Vitamin E 400 unit PO DAILY 03/26/17 [History] diphenhydrAMINE HCL [Benadryl] 25 mg PO Q4H PRN 03/26/17 [History] Budesonide [Pulmicort] 0.5 mg IH BID 03/28/20 [History] Tiotropium [Spiriva HandiHaler] 18 mcg INH 1200 03/28/20 [History] Acetaminophen/HYDROcodone [Ephrata 325-5 MG] 1 tab PO Q4H PRN #15 tablet 03/29/20 [Rx] predniSONE 20 mg PO DAILY #5 tab 03/29/20 [Rx] Forms: ED Department Discharge Referrals: PCP,None [Primary Care Provider] - - Discharge Summary/Plan Comment DC Time >30 min.: No - General Info Date of Service: 03/29/20 Admission Dx/Problem (Free Text: Fall/subdural hematoma/contusions Subjective Update: Patient feels sore. Still has headache. No neuro changes/acute changes overnight. Functional Status: Reports: Other (Patient's general pain complaint 6 at time of rounding. ) - Review of Systems General: Reports: No Symptoms HEENT: Reports: Glasses, Headaches. Denies: Dysphasia, Ear Pain, Eye Pain, Sinus Congestion, Sore Throat, Rhinitis, Visual Changes Pulmonary: Reports: Shortness of Breath (chronic/baseline). Denies: Pleuritic Chest Pain, Cough, Sputum, Wheezing Cardiovascular: Reports: Other (general discomfort of contused area left anterior ribs. ) Gastrointestinal: Denies: Abdominal Pain, Melena, Nausea, Vomiting Genitourinary: Reports: No Symptoms Musculoskeletal: Reports: No Symptoms (No aucte changes from baseline overall. Contusions/discomfortl left chest and left methodist/mouth area). Denies: Neck Pain Skin: Reports: Bruising Neurological: Reports: Headache. Denies: Confusion, Dizziness, Numbness, Syncope, Tingling, Trouble Speaking, Weakness, Change in Speech, Gait Disturbance Psychiatric: Reports: No Symptoms - Patient Data Vitals - Most Recent: Last Vital Signs Temp 36.3 C 03/29/20 07:19 Pulse 84 03/29/20 08:13 Resp 24 H 03/29/20 07:19 BP 105/95 H 03/29/20 08:13 Pulse Ox 98 03/29/20 00:00 Weight - Most Recent: 43.091 kg I&O - Last 24 hours: Intake & Output 03/28/20 03/29/20 03/29/20 22:59 06:59 14:59 Intake Total 240 Balance 240 Med Orders - Current: Current Medications Acetaminophen (Tylenol Extra Strength) 500 mg PO Q4H PRN PRN Reason: Pain Last Admin: 03/29/20 11:27 Dose: 500 mg Documented by: Hydrocodone Bitart/Acetaminophen (Ephrata 325-5 Mg) 1 tab PO Q4H PRN PRN Reason: Pain Last Admin: 03/28/20 23:48 Dose: 1 tab Documented by: Albuterol (Proair Hfa) 2 gm INH Q4H PRN PRN Reason: Shortness of Breath Budesonide (Pulmicort) 0.5 mg INH BIDRT [facility] Last Admin: 03/29/20 08:14 Dose: 0.5 mg Documented by: Digoxin (Lanoxin) 125 mcg PO Q2D [facility] Last Admin: 03/29/20 08:13 Dose: 125 mcg Documented by: Digoxin (Lanoxin) 250 mcg PO Q2D [facility] Fluticasone Propionate (Flonase) 0 gm NASBOTH DAILY [facility] Last Admin: 03/29/20 08:32 Dose: Not Given Documented by: Levalbuterol HCl (Xopenex) 0.63 mg INH Q4HRRT PRN PRN Reason: Shortness of Breath Last Admin: 03/28/20 21:02 Dose: 0.63 mg Documented by: Metoprolol Tartrate (Lopressor) 12.5 mg PO DAILY [facility] Last Admin: 03/29/20 08:13 Dose: 12.5 mg Documented by: Montelukast Sodium (Singulair) 10 mg PO BEDTIME [facility] Last Admin: 03/28/20 21:00 Dose: 10 mg Documented by: Omeprazole (Omeprazole) 40 mg PO DAILY [facility] Last Admin: 03/29/20 08:14 Dose: 40 mg Documented by: Theophylline (Theophylline Anhydrous) 300 mg PO Q12HR [facility] Last Admin: 03/29/20 08:14 Dose: 300 mg Documented by: Tiotropium Farber (Spiriva Handihaler) 18 mcg INH QPM [facility] Last Admin: 03/28/20 19:48 Dose: 18 mcg Documented by: Discontinued Medications Acetaminophen (Tylenol) 650 mg PO NOW ONE Stop: 03/28/20 09:27 Last Admin: 03/28/20 09:31 Dose: 650 mg Documented by: Acetaminophen (Tylenol) 325 mg PO NOW ONE Stop: 03/28/20 13:32 Last Admin: 03/28/20 13:39 Dose: 325 mg Documented by: Digoxin (Lanoxin) 250 mcg PO ONETIME ONE Stop: 03/28/20 09:27 Last Admin: 03/28/20 09:34 Dose: 250 mcg Documented by: Albuterol Inhaler 2 inh PO Q4H PRN PRN Reason: Shortness of Breath - Exam Quality Assessment: Reports: Supplemental Oxygen General: Reports: Alert, Oriented, Cooperative, No Acute Distress HEENT: Reports: Pupils Equal, Pupils Reactive, EOMI, Mucous Membr. Moist/[place], Other (bruising developing around upper lip/mild edema noted. Bruising/mild swelling lateral to left eyebrow) Neck: Reports: Supple Lungs: Reports: Clear to Auscultation, Other (mildly pronounced respiratory effort). Denies: Crackles, Rales, Rhonchi, Stridor Cardiovascular: Reports: Regular Rate, Regular Rhythm GI/Abdominal Exam: Soft, Non-Tender (Female) Exam: Deferred Rectal (Female) Exam: Deferred Back Exam: Denies: Muscle Spasm Extremities: Non-Tender Skin: Reports: Ecchymosis, Other (abrasion lateral to left eyebrow) Wound/Incisions: Reports: Healing Well Neurological: Reports: No New Focal Deficit Psy/Mental Status: Reports: Alert, Normal Affect, Normal Mood
[2020-03-29 12:44] VITALS: BP 109/44; PULSE 61
[2020-03-30] MEDS ORDERED: Digoxin 250 MCG Tab PO SCH (08:00)
== END 2020-03-29 13:00 | disposition home or self-care (01) ==
LOC: LL.ED 07:39 → LL.MS 10:23 → UNDOADMOB 10:23 → LL.MS 14:11
PROVIDERS: ADMIT Emergency Medicine; ATTEND Emergency Medicine
DX: S06.5X0A Traumatic subdural hemorrhage without loss of consciousness, initial encounter (principal); S00.83XA Contusion of other part of head, initial encounter; S20.212A Contusion of left front wall of thorax, initial encounter; S09.93XA Unspecified injury of face, initial encounter; E78.00 Pure hypercholesterolemia, unspecified; J44.9 Chronic obstructive pulmonary disease, unspecified; G47.00 Insomnia, unspecified; K21.9 Gastro-esophageal reflux disease without esophagitis; F17.210 Nicotine dependence, cigarettes, uncomplicated; J44.1 Chronic obstructive pulmonary disease with (acute) exacerbation; M89.49 Other hypertrophic osteoarthropathy, multiple sites; Z99.81 Dependence on supplemental oxygen; Z88.1 Allergy status to other antibiotic agents; Z88.0 Allergy status to penicillin; Z91.013 Allergy to seafood; Z88.2 Allergy status to sulfonamides; Z88.8 Allergy status to other drugs, medicaments and biological substances; Z88.5 Allergy status to narcotic agent; Z91.030 Bee allergy status; Z86.79 Personal history of other diseases of the circulatory system; Z91.041 Radiographic dye allergy status; Z79.82 Long term (current) use of aspirin; Z79.01 Long term (current) use of anticoagulants; Z79.899 Other long term (current) drug therapy; W19.XXXA Unspecified fall, initial encounter; Y92.000 Kitchen of unspecified non-institutional (private) residence as the place of occurrence of the external cause
CPT/HCPCS: 36415; 70450; 71045; 80053; 80162; 83735; 85025; 94640; 99285-25; A9270-GY; G0378

== ENCOUNTER 2020-12-12 22:08 | Inpatient (IN) | payer MEDICARE, BC ==
--- NOTE | 2020-12-12 22:47 | EDM.PDOC ---
ED HPI GENERAL MEDICAL PROBLEM - General Chief Complaint: Respiratory Problem Stated Complaint: SOB Time Seen by Provider: 12/12/20 22:40 Source of Information: Reports: Patient, Old Records ([facility] chart/EMR) History Limitations: Reports: No Limitations - History of Present Illness INITIAL COMMENTS - FREE TEXT/NARRATIVE: Patient was brought to the emergency room via private automobile by her for evaluation of exacerbation of her COPD with mildly mostly clear productive cough especially during the last couple of days. She did see her regular pro vider on 12/10 and was started on a tapering dose of prednisone and Keflex, although the patient has only been taking her Keflex on a twice daily rather than prescribed 3 times daily basis. She was diagnosed with Covid on 10/18/2020 and has only received one of her immunizations to this point. No other known exposure to infection with patient having problems with her COPD during the last 3 weeks. She has relatively stable chronic 6/10 thoracic back pain with no recent history of fall or injury. The patient denies any chest pain/pressure, heart flutter, dizziness, orthostasis, orthopnea, diaphoresis, paresthesias, recent decreased exercise tolerance, or any other anginal-type symptoms, although her overall activity level is low secondary to her COPD. No recent history of abdominal pain, heartburn, nausea, diarrhea, melena, gross hematochezia, or any food intolerance, including fatty foods, etc.. She denies any gross hematuria, colic, or the UTI symptoms. No history of recent visual changes, diplopia, change in mental status, or other change in neurological status with stable chronic headaches secondary to her previous left subdural hematoma in March 2020 as below. The patient did take her last nebulizer treatment about 2 hours prior to arrival. Onset: Gradual, Other (As above) Onset Date: 12/10/20 (Progressive cough as above) Duration: Constant, Getting Worse Location: Reports: Back (Stable as above). Denies: Head, Face, Neck, Chest, Abdomen, Upper Extremity, Left, Upper Extremity, Right, Radiates to Quality: Reports: Ache, Same as Previous Episode Severity: Moderate Improves with: Reports: None Worsens with: Reports: None Context: Reports: Other (As above). Denies: Sick Contact, Trauma Associated Symptoms: Reports: Cough, cough w sputum (As above), Headaches (Stable chronic), Shortness of Breath (Mildly progressed ), Weakness (Stable chronic). Denies: Confusion, Chest Pain, Diaphoresis, Fever/Chills, Loss of Appetite, Malaise, Nausea/Vomiting, Rash, Seizure, Syncope Treatments FIRST COOK: Reports: Other Medication(s) Generalized Pain Score (Numeric/FACES): 6 (Mostly thoracic as above) - Related Data Allergies Allergy/AdvReac Type Severity Reaction Status Date / Time aspartame Allergy Anaphylactic Verified 12/12/20 22:25 Shock banana Allergy Shortness Verified 12/12/20 22:25 of Breath bee venom protein (honey bee) Allergy Shortness Verified 12/12/20 22:25 of Breath ciprofloxacin [From Cipro] Allergy Shortness Verified 12/12/20 22:25 of Breath clarithromycin [From Biaxin] Allergy Hives Verified 12/12/20 22:25 clindamycin Allergy Vomiting Verified 12/12/20 22:25 codeine Allergy Vomiting Verified 12/12/20 22:25 egg Allergy Vomiting Verified 12/12/20 22:25 erythromycin base Allergy Hives Verified 12/12/20 22:25 iodine Allergy Anaphylactic Verified 12/12/20 22:25 Shock levofloxacin [From Levaquin] Allergy Bronchospas Verified 12/12/20 22:25 ms lincomycin [From Lincocin] Allergy Shortness Verified 12/12/20 22:25 of Breath minerals [From Enviro Stress] Allergy Shortness Verified 12/12/20 22:25 of Breath mold Allergy Shortness Verified 12/12/20 22:25 of Breath nitrofurantoin Allergy Shortness Verified 12/12/20 22:25 [From Macrodantin] of Breath orange Allergy Swelling Verified 12/12/20 22:25 Penicillins Allergy Shortness Verified 12/12/20 22:25 of Breath shrimp Allergy Wheezing Verified 12/12/20 22:25 Sulfa (Sulfonamide Allergy Hives Verified 12/12/20 22:25 Antibiotics) vitamin B complex and C Allergy Shortness Verified 12/12/20 22:25 [From Enviro Stress] of Breath vitamin E (d-alpha Allergy Shortness Verified 12/12/20 22:25 tocopherol) of Breath [From Enviro Stress] CT dye Allergy Shortness Uncoded 12/12/20 22:25 of Breath Home Meds: Home Meds Acetaminophen [Tylenol Extra Strength] 1,000 mg PO Q4H PRN 03/26/17 [History] Albuterol [IJD: Ventolin HFA] 2 puff INH Q4H PRN 03/26/17 [History] Aspirin [Halfprin] 81 mg PO DAILY 03/26/17 [History] Calcium Carbonate [Calcium] 1,000 mg PO DAILY 03/26/17 [History] Cholecalciferol (Vitamin D3) [Vitamin D3] 2,000 unit PO DAILY 03/26/17 [History] Denosumab [Prolia] 60 mg SUBCUT Q180D 03/26/17 [History] Digoxin [Digox] 125 mcg PO Q2D 03/26/17 [History] Fish Oil/Grimes-3 Fatty Acids [Fish Oil 1,000 MG] 1,000 mg PO BEDTIME 03/26/17 [History] Fluticasone Propionate [Flonase] 1 spray NASBOTH BID 03/26/17 [History] Hydrocodone/Acetaminophen [Willows 5-325] 1 tab PO BID PRN 03/26/17 [History] Levalbuterol HCl [Xopenex] 0.63 mg NEB Q4HRRT PRN 03/26/17 [History] Metoprolol Tartrate [Lopressor] 12.5 mg PO DAILY 03/26/17 [History] Montelukast [Singulair] 10 mg PO BEDTIME 03/26/17 [History] Mupirocin Oint [Bactroban Oint] 22 gm TOP TID PRN 03/26/17 [History] Omeprazole 20 mg PO ACBREAKFAST 03/26/17 [History] Theophylline [Theophylline Anhydrous] 300 mg PO BID 03/26/17 [History] Ubidecarenone [Coenzyme Q-10] 50 mg PO BEDTIME 03/26/17 [History] Vitamin E 400 unit PO BEDTIME 03/26/17 [History] diphenhydrAMINE HCL [Benadryl] 25 mg PO QID PRN 03/26/17 [History] Budesonide [Pulmicort] 0.5 mg IH BID 03/28/20 [History] Tiotropium [Spiriva HandiHaler] 18 mcg INH 1200 03/28/20 [History] Ascorbate Calcium [Vitamin C] 1,000 mg PO DAILY 10/17/20 [History] Cetirizine [ZyrTEC] 10 mg PO DAILY PRN 10/17/20 [History] Mepolizumab [Nucala] 100 mg SQ Q28D 10/17/20 [History] 0.9 % Sodium Chloride [Sodium Chloride] 3 ml IH BID PRN 11/15/20 [History] Heparin Sodium,Porcine/PF [Heparin IV Flush 100 Units/ml] 500 unit IV Q30D 11/15/20 [History] cephALEXin [Cephalexin] 500 mg PO TID 12/12/20 [History] predniSONE [Prednisone] 2 tab PO DAILY 12/12/20 [History] Past Medical History HEENT History: Reports: Allergic Rhinitis, Cataract, Impaired Vision, Sinusitis, Other (See Below). Denies: Glaucoma, Hard of Hearing, Macular Degeneration, Otitis Media, Retinal Detachment Other HEENT History: Facial/dental trauma secondary to a fall on 03/28/2020 with dental splint as below. Mild beginning cataracts with no surgery to this point, patient wears glasses Cardiovascular History: Reports: Arrhythmia, Heart Murmur, High Cholesterol, Other (See Below). Denies: Afib, Aneurysm, Blood Clots/VTE/DVT, CAD, Heart Failure, Hypertension, ID, PVD, Syncope Other Cardiovascular History: Short WV interval. Sinus arrhythmia and PSVT, benign heart murmur as a child, borderline hyperlipidemia with no medical therapy, varicose veins. Rheumatic Fever as child Respiratory History: Reports: Asthma, Bronchitis, Recurrent, COPD, Intubation, Previous, Pneumonia, Recurrent, Sleep Apnea, Other (See Below). Denies: Intubation, Difficult, PE, Pneumothorax, Pulmonary Fibrosis, TB Other Respiratory History: Severe O2 dependent COPD with current chronic use of 2 L/min by nasal cannula. Sleep apnea with patient not tolerating CPAP however she does use O2 as above. Gastrointestinal History: Reports: Cholelithiasis, Chronic Constipation, Chronic Diarrhea, Colon Polyp, Diverticulosis, Gastritis, GERD, GI Bleed, Irritable Bowel Syndrome, PUD, Other (See Below). Denies: Bowel Obstruction, Celiac Disease, Fatty Liver, Fecal Incontinence, Hepatitis, Helicobacter Pylori, Hiatal Hernia, Inflammatory Bowel Disease, Jaundice, Pancreatitis Other Gastrointestinal History: Peptic ulcer disease with history of GI bleed in the 1980s, sigmoid diverticulosis Genitourinary History: Reports: Renal Calculus, UTI, Recurrent, Other (See Below). Denies: Acute Renal Failure, Chronic Renal Insuffiency, STD, Urinary Incontinence Other Genitourinary History: Recurrent bilateral urolithiasis with moderate left-sided nephrolithiasis. 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 Menopause at age 53 with atrophic vaginitis. Musculoskeletal History: Reports: Arthritis, Back Pain, Chronic, Fracture, Fibromyalgia, Neck Pain, Chronic, Osteoarthritis, Osteoporosis, RA, Other (See Below). Denies: Gout, SLE Other Musculoskeletal History: Complex right radial and ulnar fracture in 3 different places at about age 14. Right wrist fracture at age 24, multiple bilateral finger fractures and feet bilaterally, scoliosis Neurological History: Reports: Concussion, Headaches, Chronic, Head Trauma, Migraines, Neuropathy, Peripheral, Other (See Below). Denies: Alzheimers Disease, Cerebral Aneurysms, CVA, MS, Parkinson's, Seizure, TIA, Vertigo Other Neuro History: Head concussion with small left-sided subdural hematoma on 03/28/2020 secondary to a fall with subsequent chronic headaches. Previous migraine headaches from age 24 until after menopause, cerebromicrovascular disease Psychiatric History: Reports: None. Denies: Abuse, Victim of, ADD, ADHD, Addiction, Anxiety, Depression, Psych Hospitalization(s), Psychosis, PTSD, Funk icide Attempt, Suicidal Ideation Endocrine/Metabolic History: Reports: None, Hypomagnesemia, Osteopenia, Osteoporosis. Denies: Diabetes, Gestational, Diabetes, Type I, Diabetes, Type II, Diabetes Mellitus, Type 3c, Hypothyroidism, IDDM, Obesity/BMI 30+ Hematologic History: Reports: Anemia, Other (See Below). Denies: Blood Transfusion(s) Other Hematologic History: Macrocytosis. Previous anemia with chemotherapy at otherwise no problems. Immunologic History: Reports: None. Denies: AIDS, HIV, SLE Oncologic (Cancer) History: Reports: Breast, Other (See Below). Denies: Basal Cell Carcinoma, Cervix, Colon, Hodgkin's Lymphoma, Leukemia, Lymphoma, Malignant Melanoma, Metastatic, Non-Hodgkin's Lymphoma, Ovarian, Squamous Cell Carcinoma, Thyroid, Uterine Other Oncologic History: Right breast cancer in 2003 with surgery as below and additional chemotherapy and radiation therapy Dermatologic History: Reports: Eczema, Other (See Below). Denies: Psoriasis Other Dermatologic History: Lymphedema of the right arm secondary to previous partial mastectomy - Infectious Disease History Infectious Disease History: Reports: Measles, Mononucleosis (Recurrent with last episode in her 40s.), Mumps, Novel Coronavirus (10/18/2020 with only 1 Moderna immunization to this point.), Rheumatic Fever. Denies: C-Difficile, Chicken Pox, Meningitis, MRSA, Rubella, Shingles, TB, VRE - Past Surgical History Head Surgeries/Procedures: Reports: None. Denies: Craniotomy HEENT Surgical History: Reports: Oral Surgery, Other (See Below). Denies: Cataract Surgery, Eye Surgery, Laser Surgery, LASIK, Myringotomy w Tube(s), Naso-Sinus Surgery, Tonsillectomy Other HEENT Surgeries/Procedures: Multiple teeth extractions with additional placement of a dental splint on 03/28/2020 secondary to dental trauma as above. Cardiovascular Surgical History: Reports: None. Denies: Varicose Respiratory Surgical History: Reports: None. Denies: Thoracentesis GI Surgical History: Reports: Cholecystectomy, Colonoscopy, EGD, Polypectomy, Other (See Below). Denies: Appendectomy, Hernia, Abdominal, Hernia, Inguinal, Hernia Repair/Other Other GI Surgeries/Procedures: Laparoscopic cholecystectomy about age 60, colonoscopy and EGD with polypectomy from the colon of unknown type at about age 60 Female Surgical History: Reports: Breast Biopsy, Cystoscopy, Lithotripsy/ESW L, Mastectomy, Other (See Below). Denies: D&C, Tubal Ligation Other Female Surgeries/Procedures: Partial mastectomy at age 53 in 2003 secondary to breast cancer with additional right breast biopsies on 07/20/2003, 07/20/2004, and 07/20/2007. lithotripsy 2 on the left side, cystoscopy on 03/10/01 Endocrine Surgical History: Reports: None. Denies: Thyroid Biopsy Neurological Surgical History: Reports: None. Denies: C-Spine, Discectomy, Laminectomy, Lumbar Spine, Sacral Spine, Spinal Fusion, Thoracic Spine, Vertebroplasty Musculoskeletal Surgical History: Reports: None. Denies: Arthroscopic Procedure, Carpal Tunnel, Ganglion Cyst, Joint Replacement, ORIF, Shoulder Surgery Oncologic Surgical History: Reports: Biopsy of Breast, Mastectomy, Other (See Below) Other Oncologic Surgeries/Procedures: Breast biopsies in partial meniscectomy as above. Dermatological Surgical History: Reports: Skin Biopsy, Other (See Below) Other Dermatological Surgeries/Procedures: Excision of multiple benign moles. - Past Imaging History Past Imaging History: Reports: Cardiac Echo (12/21/12 with ejection fraction of 55%), Carotid US (05/10/02), CAT Scan (CT of the head x2 on 03/28/2020. CT of the abdomen and pelvis on 09/22/08, multiple CTs using renal protocol with last 2 evaluations on 07/24/[address] 05/[address]. CT of the chest on 05/25/2020, 06/14/12 and 04/23/06), DEXA Scan (05/10/2019), Mammogram (Last mammogram 2016), MRI (Brain on 08/28/10), Sleep Study (02/28/13), Ultrasound (Bladder on 04/22/2017. Abdominal aortic ultrasound on 01/06/13, abdominal ultrasound on 04/23/02 and 11/17/00, soft tissue ultrasound of the neck on 06/07/10, pelvic ultrasounds on 04/26/08 and 03/10/01) Social & Family History - Family History Family Medical History: (Family) HEENT: Reports: Allergic Rhinitis, Sinusitis, Other (See Below). Denies: Glaucoma, Macular Degeneration (Anybody), Retinal Detachment Other HEENT Family History: Allergic rhinitis and sinusitis in mother and brother. Paternal grandfather with macular degeneration with secondary blindness. Cardiac: Reports: CAD, High Cholesterol, Hypertension, ID, Stent, Other (See Below). Denies: Afib, Aneurysm, Arrhythmia, Blood Clots/VTE/DVT Other Cardiac Family History: Paternal grandfather with ID in his 60s. Paternal uncle with possible fatal ID in his 70s with history of PTCA/stent. Brother with CABG x4 and history of ID in his 60s. Mother and brother with hyperlipidemia. Brother and sister with hypertension. Respiratory: Reports: Asthma, COPD, Other (See Below). Denies: PE, Pneumothorax, Sleep Apnea Other Respiratory Family Hisory: History of COPD and/or asthma and mother, father, brothers x2, sister and maternal grandfather. Brother and sister with sleep apnea. GI: Reports: Colon Polyps, Other (See Below). Denies: Celiac Disease, Cholelithiasis, GERD, GI bleed, Inflammatory Bowel Disease, Irritable Bowel Syndrome, PUD Other GI Family History: Maternal grandmother with colon cancer as below. : Reports: None. Denies: Renal Calculus, Renal Disease/Insufficiency OBGYN: Reports: None. Denies: Endometriosis, Recurrent Spontaneous Musculoskeletal: Reports: Arthritis, Osteoarthritis, RA, Other (See Below). Denies: Gout, SLE Other Musculoskeletal Family History: Sister with rheumatoid arthritis. Neurological: Reports: Alzheimers Disease, Dementia, Other (See Below). Denies: Cerebral Aneurysms, CVA, Migraines, MS, Parkinson's, Seizure, TIA Other Neurological Family History: Paternal grandmother and paternal great- grandmother with organic brain syndrome. Psychiatric: Reports: None. Denies: Abuse, Victim of, ADD, ADHD, Anxiety, Depression, Psych Hospitalization(s), PTSD, Suicide Attempt Endocrine/Metabolic: Reports: Diabetes, type II, IDDM, Other (See Below). Denies: Diabetes, Type I, Diabetes Mellitus, Type 3c, Hypothyroidism Other Endocrine/Metabolic Family History: Paternal uncle with AODM. Maternal uncle with IDDM. Hematologic: Reports: None. Denies: Anemia, SLE Immunologic: Reports: None. Denies: AIDS, HIV, SLE Dermatologic: Reports: Eczema, Other (See Below). Denies: Psoriasis Other Dermatologic Family History: Eczema in parents, paternal grandmother, maternal uncle, and paternal uncle. Oncologic: Reports: Breast, Colon, Other (See Below) Other Oncologic Family History: Paternal aunts x 3 with fatal breast cancer in their 60s70s. Sister with fatal breast cancer at age 67. Paternal grandmother with fatal breast cancer. Cousin with breast cancer. Maternal grandmother with fatal colon cancer in her 70s. Patient does not recall paternal uncle having lymphoma despite records from [place]. - Tobacco Use Tobacco Use Status *Q: Current Every Day Tobacco User Tobacco Use Within Last Twelve Months: Cigarettes Years of Tobacco use: 52 Packs/Tins Daily: 0.1 Packs/Tins Daily Comment: Started smoking at age 18 with maximum use of 1 pack/day. Used Tobacco, but Quit: No Smoking Cessation Information Provided To Patient: Yes (At hospital discharge) Second Hand Smoke Exposure: Yes Source of Second Hand Smoke Exposure: smokes Second Hand Smoke Education Provided: Yes - Caffeine Use Caffeine Use: Reports: None. 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 ED EXAM, GENERAL - Physical Exam Exam: See Below Exam Limited By: No Limitations General Appearance: Alert, WD/WN, Mild Distress (Secondary to dyspnea), Cachetic Eye Exam: Bilateral Eye: EOMI, Normal Inspection (Patient is wearing glasses. No vertigo or nystagmus.), PERRL Ears: Normal External Exam, Normal Canal, Hearing Grossly Normal, Normal TMs Nose: Normal Inspection, Normal Mucosa, No Blood Throat/Mouth: Normal Lips, Normal Gums, Normal Oropharynx, Normal Voice, No Airway Compromise. No: Normal Teeth (Multiple missing teeth, including broken teeth into the gum lines with some caries with no acute abscess, drainage, etc.), Dysphagia, Inflammation, Perioral Cyanosis Head: Atraumatic, Normocephalic. No: Facial Swelling, Facial Tenderness, Sinus Tenderness Neck: Normal Inspection, Supple, Non-Tender, Full Range of Motion. No: Lymphadenopathy (L), Lymphadenopathy (R), Thyromegaly Respiratory/Chest: Chest Non-Tender, Respiratory Distress (Mild), Rales (Moderate diffuse bilateral particularly in the bases), Accessory Muscle Use (Mild intercostal? Stable), Prolonged Expiration, Other (Left-sided port noted). No: Rhonchi, Wheezing, Pleural Rub Cardiovascular: Normal Peripheral Pulses, Regular Rate, Rhythm, No Edema, No Gallop, No JVD, No Murmur, No Rub, Tachycardia (Occasional), Extra Beats (Occasional PVCs on monitor). No: Gallop/S3, Gallop/S4, Friction Rub Peripheral Pulses: 2+: Radial (L), Radial (R), Dorsalis Pedis (L), Dorsalis Pedis (R) GI/Abdominal: Normal Bowel Sounds, Soft, Non-Tender, No Organomegaly, No Distention, No Abnormal Bruit, No Mass. No: Guarding (Female) Exam: Deferred Rectal (Female) Exam: Deferred Back Exam: Full Range of Motion, Other (Mild scoliosis). No: CVA Tenderness (L), CVA Tenderness (R), Muscle Spasm, Paraspinal Tenderness, Vertebral Tenderness Extremities: Normal Inspection, Normal Range of Motion, Non-Tender, No Pedal Edema, Normal Capillary Refill. No: Melody's Sign Neurological: Alert, Oriented, CN II-XII Intact, Normal Cognition, Normal Gait, Normal Reflexes (Negative Babinski's), No Motor/Sensory Deficits Psychiatric: Normal Affect, Normal Mood Skin Exam: Warm, Dry, Intact, Normal Color, No Rash. No: Diaphoretic, Wound/Incision Lymphatic: No Adenopathy #1 Interpretation EKG Date: 12/12/20 Time: 23:09 Rhythm: NSR Rate (Beats/Min): 92 Motley: RAD-Right Motley Deviation P-Wave: Enlarged (Moderate diffuse biphasic P waves) QRS: Normal (0.10 seconds representing repolarization changes with stable T wave inversion in lead V1) ST-T: Normal (Noisy baseline) QT: Normal WV/PQ Interval: 0.12 seconds representing a short WV interval with extreme poor R wave progression in the anterior leads. Comparison: No Change (Last EKG on 02/18/2020) EKG Interpretation Comments: 1. No acute ischemic changes 2. Short WV interval 3. Repolarization changes Course - Vital Signs Last Recorded V/S: Last Vital Signs Temp 36.5 C 12/12/20 23:19 Pulse 93 12/12/20 23:19 Resp 26 H 12/12/20 23:19 BP 119/75 12/12/20 23:19 Pulse Ox 92 L 12/12/20 23:19 Vital Signs - 24 hr 12/12/20 12/12/20 12/12/20 22:13 22:47 23:19 Temperature [ 37.6 C 36.5 C Temporal] Pulse, 103 H 93 Peripheral [ Right Pulse Oximetry] Respiratory 22 H 26 H Rate Blood Pressure 124/62 119/75 [Left Upper Arm ] O2 Sat by Pulse 92 L 92 L Oximetry O2 Sat by Pulse 96 Oximetry [ Nasal Cannula] 12/13/20 00:03 Temperature [ Temporal] Pulse, 83 Peripheral [ Right Pulse Oximetry] Respiratory 23 H Rate Blood Pressure 136/72 [Left Upper Arm ] O2 Sat by Pulse 95 Oximetry O2 Sat by Pulse Oximetry [ Nasal Cannula] - Orders/Labs/Meds Orders: Active Orders 24 hr Category Date Time Status Cardiac Monitoring [RC] CONTINUOUS Care 12/12/20 22:47 Active Communication Order [RC] ROUTINE Care 12/12/20 22:47 Active EKG Documentation Completion [RC] ASDIRECTED Care 12/12/20 22:48 Active Oxygen Therapy, ED [RC] CONTINUOUS Care 12/12/20 22:47 Active Peripheral IV Care [RC] . DIRECTED Care 12/12/20 22:48 Active Pulse Oximetry [RC] CONTINUOUS Care 12/12/20 22:47 Active Up With Assistance [RC] ASDIRECTED Care 12/12/20 22:47 Active Nothing Per Oral Diet [DIET] Diet 12/12/20 Breakfast Active Chest 2V [CR] Stat Exams 12/12/20 22:47 Ordered CULTURE BLOOD [BC] Stat Lab 12/12/20 22:48 Ordered CULTURE BLOOD [BC] Stat Lab 12/12/20 22:48 Ordered CULTURE SPUTUM + SMEAR [RM] Urgent Lab 12/12/20 22:47 Ordered Sodium Chloride 0.9% [Saline Flush] Med 12/12/20 22:47 Active 10 ml FLUSH ASDIRECTED PRN Blood Culture x2 Reflex Set [OM.PC] Stat Oth 12/12/20 22:47 Ordered Obtain Past Medical Record [OM.PC] Stat Oth 12/12/20 22:47 Active Peripheral IV Insertion Adult [OM.PC] Stat Oth 12/12/20 22:47 Ordered Resuscitation Status Routine Resus Stat 12/12/20 22:47 Ordered EKG 12 Lead [EK] Stat Ther 12/12/20 22:47 Ordered Medication Orders Sodium Chloride (Sodium Chloride 0.9% 10 Ml Syringe) 10 ml FLUSH ASDIRECTED PRN PRN Reason: Keep Vein Open Labs: Laboratory Tests 12/12/20 12/12/20 12/12/20 Range/Units 22:55 22:55 22:55 WBC 8.3 (4.0-10.2) K/uL RBC 3.94 (3.77-5.09) M/uL Hgb 12.2 D (11.7-15.5) g/dL Hct 41.3 (34.0-46.0) % MCV 104.8 H D (84.0-98.0) fL MCH 31.0 (28.2-33.3) pg MCHC 29.5 L (31.7-36.0) g/dL RDW 13.4 (11.2-14.1) % Plt Count 287 (150-350) K/uL Neut % (Auto) 81.6 H (45.0-80.0) % Lymph % (Auto) 8.9 L (10.0-50.0) % [place] % (Auto) 9.3 (2.0-14.0) % Eos % (Auto) 0.0 (0.0-5.0) % Baso % (Auto) 0.2 (0.0-2.0) % Neut # (Auto) 6.77 (1.40-7.00) K/uL Lymph # (Auto) 0.74 (0.50-3.50) K/uL [place] # (Auto) 0.77 (0.00-1.00) K/uL Eos # (Auto) 0.00 (0.00-0.50) K/uL Baso # (Auto) 0.02 (0.00-0.20) K/uL PT 9.3 L (9.5-12.0) SEC INR 0.9 APTT 26.8 (24.5-32.8) SEC D-Dimer, Quantitative 308 (0-400) ng/mL Sodium (136-145) mmol/L Potassium (3.5-5.1) mmol/L Chloride (98-107) mmol/L Carbon Dioxide (21.0-32.0) mmol/L BUN (7-18) mg/dL Creatinine (0.51-1.17) mg/dL Est Cr Clr Drug Dosing Estimated GFR (MDRD) mL/min Glucose (70-99) mg/dL Lactic Acid (0.4-2.0) mmol/L Calcium (8.5-10.1) mg/dL Magnesium (1.8-2.4) mg/dL Total Bilirubin (0.2-1.0) mg/dL AST (15-37) U/L ALT (12-78) U/L Alkaline Phosphatase (46-116) IU/L Creatine Kinase (26-308) U/L Creatine Kinase Index (0.0-2.5) % CK-MB (CK-2) (0.00-3.60) ng/mL Troponin I (0.000-0.056) ng/mL NT-Pro-B Natriuret Pep (0-125) pg/mL Total Protein (6.4-8.2) g/dL Albumin (3.4-5.0) g/dL TSH, Ultra Sensitive (0.358-3.740) mIU/mL Digoxin (0.90-2.00) ng/mL 12/12/20 12/12/20 12/12/20 Range/Units 22:55 22:55 22:55 WBC (4.0-10.2) K/uL RBC (3.77-5.09) M/uL Hgb (11.7-15.5) g/dL Hct (34.0-46.0) % MCV (84.0-98.0) fL MCH (28.2-33.3) pg MCHC (31.7-36.0) g/dL RDW (11.2-14.1) % Plt Count (150-350) K/uL Neut % (Auto) (45.0-80.0) % Lymph % (Auto) (10.0-50.0) % [place] % (Auto) (2.0-14.0) % Eos % (Auto) (0.0-5.0) % Baso % (Auto) (0.0-2.0) % Neut # (Auto) (1.40-7.00) K/uL Lymph # (Auto) (0.50-3.50) K/uL [place] # (Auto) (0.00-1.00) K/uL Eos # (Auto) (0.00-0.50) K/uL Baso # (Auto) (0.00-0.20) K/uL PT (9.5-12.0) SEC INR APTT (24.5-32.8) SEC D-Dimer, Quantitative (0-400) ng/mL Sodium 142 (136-145) mmol/L Potassium 4.1 (3.5-5.1) mmol/L Chloride 98 (98-107) mmol/L Carbon Dioxide 43.4 H* (21.0-32.0) mmol/L BUN 21 H (7-18) mg/dL Creatinine 0.51 (0.51-1.17) mg/dL Est Cr Clr Drug Dosing TNP Estimated GFR (MDRD) > 60 mL/min Glucose 152 H (70-99) mg/dL Lactic Acid 0.9 (0.4-2.0) mmol/L Calcium 8.6 (8.5-10.1) mg/dL Magnesium 1.8 (1.8-2.4) mg/dL Total Bilirubin 0.2 (0.2-1.0) mg/dL AST 16 (15-37) U/L ALT 18 (12-78) U/L Alkaline Phosphatase 61 (46-116) IU/L Creatine Kinase 49 (26-308) U/L Creatine Kinase Index 3.7 H (0.0-2.5) % CK-MB (CK-2) 1.80 (0.00-3.60) ng/mL Troponin I 0.021 (0.000-0.056) ng/mL NT-Pro-B Natriuret Pep 1495 H (0-125) pg/mL Total Protein 6.5 (6.4-8.2) g/dL Albumin 3.2 L (3.4-5.0) g/dL TSH, Ultra Sensitive 0.628 (0.358-3.740) mIU/mL Digoxin 0.48 L (0.90-2.00) ng/mL Meds: Medications Generic Name Dose Route Start Last Admin Trade Name Freq PRN Reason Stop Dose Admin Sodium Chloride 10 ml 12/12/20 22:47 Sodium Chloride 0.9% 10 Ml Syringe FLUSH ASDIRECTED PRN Keep Vein Open - Radiology Interpretation Free Text/Narrative:: machine stoppage frequency checker shows normal sinus rhythm with exception of occasional PVCs with heart rates ranging in the 80s to low 100s. Chest x-ray, PA and lateral, shows severe COPD changes with no significant pulmonary infiltrates, cardiomegaly, CHF, etc. Note severe osteoporosis with ad ditional status post port placement on the left side and surgical clips noted on the right side. No pneumothorax noted. Departure - Departure Time of Disposition: 00:30 Disposition: Admitted As Inpatient 68 Condition: Fair Clinical Impression: Peptic reflux disease, PVCs (premature ventricular contractions), Shortened [place] interval, Cachexia, Macrocytosis, Hypoalbuminemia, Tobacco abuse counseling COPD (chronic obstructive pulmonary disease) Qualifiers: COPD type: emphysema Emphysema type: panlobular Qualified Code(s): J43.1 - Panlobular emphysema Osteoarthritis Qualifiers: Osteoarthritis location: multiple joints Osteoarthritis type: primary Qualified Code(s): M89.49 - Other hypertrophic osteoarthropathy, multiple sites CHF (congestive heart failure) Qualifiers: Heart failure type: unspecified Heart failure chronicity: acute Qualified Code(s): I50.9 - Heart failure, unspecified - Discharge Information *PRESCRIPTION DRUG MONITORING PROGRAM REVIEWED*: Not Applicable *COPY OF PRESCRIPTION DRUG MONITORING REPORT IN PATIENT JIMMIE: Not Applicable Referrals: PCP,Unknown [Primary Care Provider] - Forms: ED Department Discharge Care Plan Goals: See plan Sepsis Event Note (ED) - Evaluation Sepsis Screening Result: No Definite Risk - Focused Exam Vital Signs: Vital Signs Temp Pulse Resp BP Pulse Ox Pulse Ox 12/12/20 23:19 36.5 C 93 26 H 119/75 92 L 12/12/20 22:47 96 12/12/20 22:13 37.6 C 103 H 22 H 124/62 92 L - Problem List & Annotations (1) CHF (congestive heart failure) SNOMED Code(s): 99524969 Code(s): I50.9 - HEART FAILURE, UNSPECIFIED Status: Acute Priority: High Current Visit: Yes Onset Date: 12/12/20 Annotation/Comment:: IV Lasix therapy to be initiated after patient's admission. Consider echocardiogram on an outpatient basis. No true chest pain or anginal type symptoms with artifactually elevated CK index secondary to low baseline CK with normal CK-MB and only mild change of her troponin I, which is still normal, secondary to her CHF. Initiate standard rule out ID orders. Cardiology consultation depending on her clinical course. Qualifiers: Heart failure type: unspecified Heart failure chronicity: acute Qualified Code(s): I50.9 - Heart failure, unspecified (2) COPD (chronic obstructive pulmonary disease) SNOMED Code(s): 83467809 Code(s): J44.9 - CHRONIC OBSTRUCTIVE PULMONARY DISEASE, UNSPECIFIED Status: Chronic Priority: Medium Current Visit: Yes Annotation/Comment:: No significant pneumonia or bronchitis based on chest x-ray. Note O2 dependent COPD with increased oxygen requirement secondary to her CHF. Continue previous Keflex therapy, nebulizer therapy, etc. Blood cultures x2 were collected with no leukocytosis, fever, etc. Note normal lactic acid level. Additional history of sleep apnea with the patient not able to tolerate her CPAP. She does have a pulmonology appointment scheduled for 12/14, which she does agree to reschedule. Note history of recent Covid on 10/18/2020 with incomplete immunization as above. Qualifiers: COPD type: emphysema Emphysema type: panlobular Qualified Code(s): J43.1 - Panlobular emphysema (3) Cachexia SNOMED Code(s): 862709604 Code(s): R64 - CACHEXIA Status: Chronic Priority: Medium Current Visit: Yes Annotation/Comment:: Likely secondary to her O2 dependent COPD. No previous history of distant breast cancer. Continue to observe closely. (4) Hypoalbuminemia SNOMED Code(s): 391242025 Code(s): E88.09 - OTH DISORDERS OF PLASMA-PROTEIN METABOLISM, NEC Status: Acute Priority: Medium Current Visit: Yes Onset Date: 12/13/20 Annotation/Comment:: Observe for now. Consider high-protein Glucerna supplements. (5) Macrocytosis SNOMED Code(s): 782778932 Code(s): D75.89 - OTHER SPECIFIED DISEASES OF BLOOD AND BLOOD-FORMING ORGANS Status: Chronic Priority: Medium Current Visit: Yes Annotation/Comment:: Additional blood work in the a.m. as work-up. (6) PVCs (premature ventricular contractions) SNOMED Code(s): 51802604 Code(s): I49.3 - VENTRICULAR PREMATURE DEPOLARIZATION Status: Acute Priority: Medium Current Visit: Yes Onset Date: 12/12/20 Annotation/Comment:: Newly diagnosed. Nonsymptomatic. Note previous history of PSVT with current subtherapeutic random digoxin level. No change in medical therapy for now. (7) Shortened [place] interval SNOMED Code(s): 24199581 Code(s): R94.31 - ABNORMAL ELECTROCARDIOGRAM [ECG] [EKG] Status: Chronic Current Visit: Yes Onset Date: 02/18/20 Annotation/Comment:: Observe for now. (8) Tobacco abuse counseling SNOMED Code(s): 690437393, 735443137, 089949185 Code(s): Z71.6 - TOBACCO ABUSE COUNSELING Status: Chronic Priority: Medium Current Visit: Yes Annotation/Comment:: Tobacco cessation strongly encouraged with tobacco cessation information to be provided at discharge. (9) Osteoarthritis SNOMED Code(s): 474742369 Code(s): M19.90 - UNSPECIFIED OSTEOARTHRITIS, UNSPECIFIED SITE Status: Chronic Priority: Medium Current Visit: Yes Annotation/Comment:: Stable by history with additional history of rheumatoid arthritis and osteoporosis. Qualifiers: Osteoarthritis location: multiple joints Osteoarthritis type: primary Qualified Code(s): M89.49 - Other hypertrophic osteoarthropathy, multiple sites - Problem List Review Problem List Initiated/Reviewed/Updated: Yes - My Orders Last 24 Hours: My Active Orders 12/12/20 Breakfast Nothing Per Oral Diet [DIET] 12/12/20 22:47 Cardiac Monitoring [RC] CONTINUOUS Communication Order [RC] ROUTINE Oxygen Therapy, ED [RC] CONTINUOUS Pulse Oximetry [RC] CONTINUOUS Up With Assistance [RC] ASDIRECTED Chest 2V [CR] Stat CULTURE SPUTUM + SMEAR [RM] Urgent Sodium Chloride 0.9% [Saline Flush] 10 ml FLUSH ASDIRECTED PRN Blood Culture x2 Reflex Set [OM.PC] Stat Obtain Past Medical Record [OM.PC] Stat Peripheral IV Insertion Adult [OM.PC] Stat Resuscitation Status Routine EKG 12 Lead [EK] Stat 12/12/20 22:48 EKG Documentation Completion [RC] ASDIRECTED Peripheral IV Care [RC] . DIRECTED CULTURE BLOOD [BC] Stat CULTURE BLOOD [BC] Stat - Assessment/Plan Admission H&P: Please use this note as an admission H&P Last 24 Hours: My Active Orders 12/12/20 Breakfast Nothing Per Oral Diet [DIET] 12/12/20 22:47 Cardiac Monitoring [RC] CONTINUOUS Communication Order [RC] ROUTINE Oxygen Therapy, ED [RC] CONTINUOUS Pulse Oximetry [RC] CONTINUOUS Up With Assistance [RC] ASDIRECTED Chest 2V [CR] Stat CULTURE SPUTUM + SMEAR [RM] Urgent Sodium Chloride 0.9% [Saline Flush] 10 ml FLUSH ASDIRECTED PRN Blood Culture x2 Reflex Set [OM.PC] Stat Obtain Past Medical Record [OM.PC] Stat Peripheral IV Insertion Adult [OM.PC] Stat Resuscitation Status Routine EKG 12 Lead [EK] Stat 12/12/20 22:48 EKG Documentation Completion [RC] ASDIRECTED Peripheral IV Care [RC] . DIRECTED CULTURE BLOOD [BC] Stat CULTURE BLOOD [BC] Stat Assessment:: As above Plan: As above. Extensive precautions were given to the patient and her , who are in agreement with the treatment plan. The patient's condition is stable enough for observation status and general supervision.
[2020-12-12 23:15] LABS: PTT,PARTIAL THROMBOPLSTIN TIME 26.8 SEC (24.5-32.8)
[2020-12-12 23:26] LABS: CHLORIDE,CL 98 mmol/L (98-107); SODIUM,NA 142 mmol/L (136-145)
[2020-12-13] MEDS ORDERED: Cetirizine 10 MG Tab PO PRN (00:36)
[2020-12-13] MEDS ORDERED: Sodium Chloride 0.9% 10 ML Syringe FLUSH PRN (00:37)
[2020-12-13] MEDS ORDERED: Temazepam 15 MG Cap PO PRN (00:37)
[2020-12-13] MEDS ORDERED: Albuterol 0.083% 2.5 MG/3 ML Neb Soln INH PRN (00:41)
[2020-12-13] MEDS ORDERED: Levalbuterol HCl 0.63 MG/3 ML Neb NEB PRN (00:42)
[2020-12-13] MEDS: Furosemide 40 MG/4 ML VIAL IVPUSH SCH ×3 (00:49→15:56)
[2020-12-13] MEDS: Sodium Chloride 0.9% 10 ML Syringe FLUSH PRN ×5 (00:51→19:45)
[2020-12-13] MEDS ORDERED: Digoxin 250 MCG Tab PO SCH (00:51)
[2020-12-13] MEDS: Digoxin 125 MCG Tab PO SCH (01:02)
[2020-12-13] MEDS: Levalbuterol HCl 0.63 MG/3 ML Neb NEB SCH ×4 (02:06→19:44)
[2020-12-13] MEDS: Enoxaparin 40 MG/0.4 ML Syringe SUBCUT SCH (02:06)
[2020-12-13] MEDS: Omeprazole 20 MG Cap.CR PO SCH (07:48)
[2020-12-13] MEDS: Fluticasone Propionate Nasal Spray 16 GM Bottle NASBOTH SCH ×2 (07:48→17:03)
[2020-12-13] MEDS: Cephalexin 250 MG Cap PO SCH ×3 (07:48→17:03)
[2020-12-13] MEDS: Aspirin 81 MG Tab.EC PO SCH (07:48)
[2020-12-13] MEDS: Potassium Chloride 20 MEQ Tab.ER PO SCH ×3 (07:49→17:03)
[2020-12-13] MEDS: Metoprolol Tartrate 25 MG Tab PO SCH (07:50)
[2020-12-13] MEDS: Cholecalciferol (Vitamin D3) 25 MCG Tab PO SCH (07:50)
[2020-12-13] MEDS: Dextromethorphan/guaiFENesin 600-30 MG Tab.ER PO SCH ×3 (07:50→17:04)
[2020-12-13] MEDS: Calcium Carbonate 500 MG Tab.Chew PO SCH (07:50)
[2020-12-13] MEDS: Theophylline 300 MG Tab.ER PO SCH ×2 (07:50→17:03)
[2020-12-13 08:04] LABS: HEMOGLOBIN A1C 5.6 % (4.3-5.7)
[2020-12-13 08:32] LABS: CHLORIDE,CL 97 mmol/L (98-107); SODIUM,NA 145 mmol/L (136-145)
--- NOTE | 2020-12-13 08:59 | PCM.PN ---
- General Info Date of Service: 12/13/20 Admission Dx/Problem (Free Text): 1. CHF 2. COPDO2 dependent 3. PVCs Functional Status: Reports: Pain Controlled, Ambulating, Urinating, Incentive Spirometry. Denies: Tolerating Diet (Still n.p.o. however patient wishes to have breakfast), New Symptoms Pain Score: 6 (Stable midthoracic) - Review of Systems General: Reports: Fever (Maximum temperature 37.3 degrees), Weakness (Stable c hronic). Denies: Fatigue, Malaise, Chills, Night Sweats, Appetite (Good) HEENT: Reports: Glasses. Denies: Dysphasia, Ear Pain, Eye Pain, Headaches, Post Nasal Drip, Sinus Congestion, Sore Throat, Rhinitis, Visual Changes Pulmonary: Reports: Shortness of Breath, Cough. Denies: Pleuritic Chest Pain, Sputum, Hemoptysis, Wheezing Cardiovascular: Reports: Dyspnea on Exertion. Denies: Chest Pain, Palpitations, Orthopnea, PND, Edema, Lightheadedness Gastrointestinal: Reports: No Symptoms, Other (No bowel movement since admission). Denies: Abdominal Pain, Constipation, Decreased Appetite, Diarrhea, Difficulty Swallowing, Flatus, Hematochezia, Melena, Nausea, Vomiting Genitourinary: Reports: No Symptoms. Denies: Dysuria, Frequency, Burning, Pain, Urgency, Incontinence, Hematuria, Retention, Flank Pain Musculoskeletal: Reports: Back Pain (Stable mid thoracic). Denies: Neck Pain, Shoulder Pain, Arm Pain, Hand Pain, Leg Pain, Joint Pain, Joint Swelling Skin: Reports: No Symptoms. Denies: Diaphoresis, Bruising, Pruritis, Rash Neurological: Reports: Weakness (As above). Denies: Confusion, Dizziness, Headache, Numbness, Paresthesia, Seizure, Tingling, Trouble Speaking, Difficulty Walking Psychiatric: Reports: No Symptoms. Denies: Confusion, Depression, Anxiety, Agitation, Cravings, Hallucinations - Patient Data Vitals - Most Recent: Last Vital Signs Temp 37.1 C 12/13/20 07:40 Pulse 105 H 12/13/20 07:50 Resp 22 H 12/13/20 07:40 BP 130/59 L 12/13/20 07:50 Pulse Ox 96 12/13/20 07:40 Vital Signs - 24 hr 12/12/20 12/12/20 12/12/20 22:13 22:47 23:19 Temperature [ 37.6 C 36.5 C Temporal] Pulse, Peripheral Pulse, 103 H 93 Peripheral [ Right Pulse Oximetry] Respiratory 22 H 26 H Rate Blood Pressure Blood Pressure 124/62 119/75 [Left Upper Arm ] O2 Sat by Pulse 92 L 92 L Oximetry O2 Sat by Pulse 96 Oximetry [ Nasal Cannula] 12/13/20 12/13/20 12/13/20 00:03 00:37 01:02 Temperature [ 36.9 C Temporal] Pulse, 107 H Peripheral Pulse, 83 78 Peripheral [ Right Pulse Oximetry] Respiratory 23 H 27 H Rate Blood Pressure Blood Pressure 136/72 123/63 [Left Upper Arm ] O2 Sat by Pulse 95 96 Oximetry O2 Sat by Pulse Oximetry [ Nasal Cannula] 12/13/20 12/13/20 12/13/20 02:00 03:54 07:40 Temperature [ 37.3 C 37.2 C 37.1 C Temporal] Pulse, Peripheral Pulse, 98 97 104 H Peripheral [ Right Pulse Oximetry] Respiratory 22 H 20 22 H Rate Blood Pressure Blood Pressure 122/53 L 132/68 130/59 L [Left Upper Arm ] O2 Sat by Pulse 95 92 L 96 Oximetry O2 Sat by Pulse Oximetry [ Nasal Cannula] 12/13/20 07:50 Temperature [ Temporal] Pulse, 105 H Peripheral Pulse, Peripheral [ Right Pulse Oximetry] Respiratory Rate Blood Pressure 130/59 L Blood Pressure [Left Upper Arm ] O2 Sat by Pulse Oximetry O2 Sat by Pulse Oximetry [ Nasal Cannula] Weight - Most Recent: 43.545 kg I&O - Last 24 Hours: Intake & Output 12/12/20 12/13/20 12/13/20 22:59 06:59 14:59 Intake Total 250 Output Total 1950 150 Balance -1700 -150 Imaging Impressions - Last 24 Hours: monitor tech shows normal sinus rhythm with occasional PVCs with average heart rate in the 80s to 90s. Lab Results Last 24 Hours: Laboratory Results - last 24 hr 12/12/20 12/12/20 12/12/20 Range/Units 22:55 22:55 22:55 WBC 8.3 (4.0-10.2) K/uL RBC 3.94 (3.77-5.09) M/uL Hgb 12.2 D (11.7-15.5) g/dL Hct 41.3 (34.0-46.0) % MCV 104.8 H D (84.0-98.0) fL MCH 31.0 (28.2-33.3) pg MCHC 29.5 L (31.7-36.0) g/dL RDW 13.4 (11.2-14.1) % Plt Count 287 (150-350) K/uL Neut % (Auto) 81.6 H (45.0-80.0) % Lymph % (Auto) 8.9 L (10.0-50.0) % [place] % (Auto) 9.3 (2.0-14.0) % Eos % (Auto) 0.0 (0.0-5.0) % Baso % (Auto) 0.2 (0.0-2.0) % Neut # (Auto) 6.77 (1.40-7.00) K/uL Lymph # (Auto) 0.74 (0.50-3.50) K/uL [place] # (Auto) 0.77 (0.00-1.00) K/uL Eos # (Auto) 0.00 (0.00-0.50) K/uL Baso # (Auto) 0.02 (0.00-0.20) K/uL PT 9.3 L (9.5-12.0) SEC INR 0.9 APTT 26.8 (24.5-32.8) SEC D-Dimer, Quantitative 308 (0-400) ng/mL Sodium (136-145) mmol/L Potassium (3.5-5.1) mmol/L Chloride (98-107) mmol/L Carbon Dioxide (21.0-32.0) mmol/L BUN (7-18) mg/dL Creatinine (0.51-1.17) mg/dL Est Cr Clr Drug Dosing Estimated GFR (MDRD) mL/min Glucose (70-99) mg/dL Hemoglobin A1c (4.3-5.7) % Lactic Acid (0.4-2.0) mmol/L Calcium (8.5-10.1) mg/dL Magnesium (1.8-2.4) mg/dL Total Bilirubin (0.2-1.0) mg/dL AST (15-37) U/L ALT (12-78) U/L Alkaline Phosphatase (46-116) IU/L Creatine Kinase (26-308) U/L Creatine Kinase Index (0.0-2.5) % CK-MB (CK-2) (0.00-3.60) ng/mL Troponin I (0.000-0.056) ng/mL NT-Pro-B Natriuret Pep (0-125) pg/mL Total Protein (6.4-8.2) g/dL Albumin (3.4-5.0) g/dL Triglycerides (30-150) mg/dL Cholesterol (100-200) mg/dL LDL Cholesterol, Calc (0-100) mg/dL HDL Cholesterol (40-60) mg/dL Vitamin B12 (193-986) pg/mL Folate (8.6-58.9) ng/mL TSH, Ultra Sensitive (0.358-3.740) mIU/mL Digoxin (0.90-2.00) ng/mL 12/12/20 12/12/20 12/12/20 Range/Units 22:55 22:55 22:55 WBC (4.0-10.2) K/uL RBC (3.77-5.09) M/uL Hgb (11.7-15.5) g/dL Hct (34.0-46.0) % MCV (84.0-98.0) fL MCH (28.2-33.3) pg MCHC (31.7-36.0) g/dL RDW (11.2-14.1) % Plt Count (150-350) K/uL Neut % (Auto) (45.0-80.0) % Lymph % (Auto) (10.0-50.0) % [place] % (Auto) (2.0-14.0) % Eos % (Auto) (0.0-5.0) % Baso % (Auto) (0.0-2.0) % Neut # (Auto) (1.40-7.00) K/uL Lymph # (Auto) (0.50-3.50) K/uL [place] # (Auto) (0.00-1.00) K/uL Eos # (Auto) (0.00-0.50) K/uL Baso # (Auto) (0.00-0.20) K/uL PT (9.5-12.0) SEC INR APTT (24.5-32.8) SEC D-Dimer, Quantitative (0-400) ng/mL Sodium 142 (136-145) mmol/L Potassium 4.1 (3.5-5.1) mmol/L Chloride 98 (98-107) mmol/L Carbon Dioxide 43.4 H* (21.0-32.0) mmol/L BUN 21 H (7-18) mg/dL Creatinine 0.51 (0.51-1.17) mg/dL Est Cr Clr Drug Dosing TNP Estimated GFR (MDRD) > 60 mL/min Glucose 152 H (70-99) mg/dL Hemoglobin A1c (4.3-5.7) % Lactic Acid 0.9 (0.4-2.0) mmol/L Calcium 8.6 (8.5-10.1) mg/dL Magnesium 1.8 (1.8-2.4) mg/dL Total Bilirubin 0.2 (0.2-1.0) mg/dL AST 16 (15-37) U/L ALT 18 (12-78) U/L Alkaline Phosphatase 61 (46-116) IU/L Creatine Kinase 49 (26-308) U/L Creatine Kinase Index 3.7 H (0.0-2.5) % CK-MB (CK-2) 1.80 (0.00-3.60) ng/mL Troponin I 0.021 (0.000-0.056) ng/mL NT-Pro-B Natriuret Pep 1495 H (0-125) pg/mL Total Protein 6.5 (6.4-8.2) g/dL Albumin 3.2 L (3.4-5.0) g/dL Triglycerides (30-150) mg/dL Cholesterol (100-200) mg/dL LDL Cholesterol, Calc (0-100) mg/dL HDL Cholesterol (40-60) mg/dL Vitamin B12 (193-986) pg/mL Folate (8.6-58.9) ng/mL TSH, Ultra Sensitive 0.628 (0.358-3.740) mIU/mL Digoxin 0.48 L (0.90-2.00) ng/mL 12/13/20 12/13/20 12/13/20 Range/Units 07:46 07:46 07:46 WBC 9.9 (4.0-10.2) K/uL RBC 3.96 (3.77-5.09) M/uL Hgb 12.6 (11.7-15.5) g/dL Hct 40.1 (34.0-46.0) % MCV 101.3 H D (84.0-98.0) fL MCH 31.8 (28.2-33.3) pg MCHC 31.4 L (31.7-36.0) g/dL RDW 13.4 (11.2-14.1) % Plt Count 288 (150-350) K/uL Neut % (Auto) 65.6 (45.0-80.0) % Lymph % (Auto) 21.5 (10.0-50.0) % [place] % (Auto) 12.5 (2.0-14.0) % Eos % (Auto) 0.1 (0.0-5.0) % Baso % (Auto) 0.3 (0.0-2.0) % Neut # (Auto) 6.48 (1.40-7.00) K/uL Lymph # (Auto) 2.12 (0.50-3.50) K/uL [place] # (Auto) 1.23 H (0.00-1.00) K/uL Eos # (Auto) 0.01 (0.00-0.50) K/uL Baso # (Auto) 0.03 (0.00-0.20) K/uL PT (9.5-12.0) SEC INR APTT (24.5-32.8) SEC D-Dimer, Quantitative (0-400) ng/mL Sodium 145 (136-145) mmol/L Potassium 3.7 (3.5-5.1) mmol/L Chloride 97 L (98-107) mmol/L Carbon Dioxide 49.0 H* (21.0-32.0) mmol/L BUN 14 (7-18) mg/dL Creatinine 0.51 (0.51-1.17) mg/dL Est Cr Clr Drug Dosing 72.57 Estimated GFR (MDRD) > 60 mL/min Glucose 93 (70-99) mg/dL Hemoglobin A1c 5.6 (4.3-5.7) % Lactic Acid (0.4-2.0) mmol/L Calcium 8.5 (8.5-10.1) mg/dL Magnesium (1.8-2.4) mg/dL Total Bilirubin 0.3 (0.2-1.0) mg/dL AST 20 (15-37) U/L ALT 19 (12-78) U/L Alkaline Phosphatase 57 (46-116) IU/L Creatine Kinase 77 (26-308) U/L Creatine Kinase Index 2.9 H (0.0-2.5) % CK-MB (CK-2) 2.20 (0.00-3.60) ng/mL Troponin I 0.031 (0.000-0.056) ng/mL NT-Pro-B Natriuret Pep 1182 H (0-125) pg/mL Total Protein 6.7 (6.4-8.2) g/dL Albumin 3.4 (3.4-5.0) g/dL Triglycerides 79 (30-150) mg/dL Cholesterol 222 H (100-200) mg/dL LDL Cholesterol, Calc 124 H (0-100) mg/dL HDL Cholesterol 82 H (40-60) mg/dL Vitamin B12 690 (193-986) pg/mL Folate 17.7 (8.6-58.9) ng/mL TSH, Ultra Sensitive (0.358-3.740) mIU/mL Digoxin (0.90-2.00) ng/mL [place] Results Last 24 Hours: Blood cultures x2 were collected. Med Orders - Current: Current Medications Acetaminophen (Acetaminophen 325 Mg Tab) 650 mg PO Q4H PRN PRN Reason: Pain Albuterol (Albuterol 0.083% 2.5 Mg/3 Ml Neb Soln) 2.5 mg INH Q2H PRN PRN Reason: SHORTNESS OF BREATH Aspirin (Aspirin 81 Mg Tab.Ec) 81 mg PO DAILY [facility] Last Admin: 12/13/20 07:48 Dose: 81 mg Documented by: Calcium Carbonate/Glycine (Calcium Carbonate 500 Mg Tab.Chew) 1,000 mg PO DAILY [facility] Last Admin: 12/13/20 07:50 Dose: 1,000 mg Documented by: Cephalexin (Cephalexin 250 Mg Cap) 500 mg PO TID [facility] Stop: 12/19/20 18:01 Last Admin: 12/13/20 07:48 Dose: 500 mg Documented by: Cetirizine HCl (Cetirizine 10 Mg Tab) 10 mg PO DAILY PRN PRN Reason: Allergies Cholecalciferol (Cholecalciferol (Vitamin D3) 25 Mcg Tab) 50 mcg PO DAILY [facility] Last Admin: 12/13/20 07:50 Dose: 50 mcg Documented by: Digoxin (Digoxin 125 Mcg Tab) 125 mcg PO SuMoWeFr [facility] Last Admin: 12/13/20 01:02 Dose: 125 mcg Documented by: Digoxin (Digoxin 250 Mcg Tab) 250 mcg PO TuThSa [facility] Enoxaparin Sodium (Enoxaparin 40 Mg/0.4 Ml Syringe) 40 mg SUBCUT Q24H [facility] Last Admin: 12/13/20 02:06 Dose: 40 mg Documented by: Fish Oil (Fish Oil/[place]-3 Fatty Acids 1 Gm Cap) 1 gm PO BEDTIME [facility] Fluticasone Propionate (Fluticasone Propionate Nasal [place] 16 Gm Bottle) 0 gm NASBOTH BID [facility] Last Admin: 12/13/20 07:48 Dose: 1 spray Documented by: Furosemide (Furosemide 40 Mg/4 Ml Vial) 40 mg IVPUSH Q8H [facility] Last Admin: 12/13/20 07:56 Dose: Not Given Documented by: Guaifenesin/Dextromethorphan (Dextromethorphan/Guaifenesin 600-30 Mg Tab.Er) 1 tab PO BID [facility] Last Admin: 12/13/20 07:50 Dose: 1 tab Documented by: Heparin Sodium (Porcine) (Heparin Sodium 100 Units/Ml 5 Ml Syringe) 500 units FLUSH ASDIRECTED PRN PRN Reason: Keep Vein Open Levalbuterol HCl (Levalbuterol Hcl 0.63 Mg/3 Ml Neb) 0.63 mg NEB Q6HRRT [facility] Last Admin: 12/13/20 07:51 Dose: 0.63 mg Documented by: Levalbuterol HCl (Levalbuterol Hcl 0.63 Mg/3 Ml Neb) 0.63 mg NEB Q4HRRT PRN PRN Reason: Dyspnea Last Admin: 12/13/20 00:49 Dose: 0.63 mg Documented by: Lisinopril (Lisinopril 10 Mg Tab) 10 mg PO QPM [facility] Metoprolol Tartrate (Metoprolol Tartrate 25 Mg Tab) 12.5 mg PO DAILY [facility] Last Admin: 12/13/20 07:50 Dose: 12.5 mg Documented by: Montelukast Sodium (Montelukast 10 Mg Tab) 10 mg PO BEDTIME [facility] Omeprazole (Omeprazole 20 Mg Cap.Cr) 20 mg PO ACBREAKFAST [facility] Last Admin: 12/13/20 07:48 Dose: 20 mg Documented by: Potassium Chloride (Potassium Chloride 20 Meq Tab.Er) 20 meq PO TID [facility] Last Admin: 12/13/20 07:49 Dose: 20 meq Documented by: Sodium Chloride (Sodium Chloride 0.9% 10 Ml Syringe) 10 ml FLUSH ASDIRECTED PRN PRN Reason: Keep Vein Open Last Admin: 12/13/20 07:52 Dose: 20 ml Documented by: Sodium Chloride (Sodium Chloride 0.9% 10 Ml Syringe) 10 ml FLUSH Q12HR PRN PRN Reason: Keep Vein Open Temazepam (Temazepam 15 Mg Cap) 15 mg PO BEDTIME PRN PRN Reason: Insomnia Theophylline (Theophylline 300 Mg Tab.Er) 300 mg PO BID [facility] Last Admin: 12/13/20 07:50 Dose: 300 mg Documented by: Tiotropium [place] (Tiotropium Inhaler 18 Mcg Inhalation Powder Cap Kit Of 5) 18 mcg INH 1200 [facility] Discontinued Medications Digoxin (Digoxin 250 Mcg Tab) 250 mcg PO TuThSa [facility] Last Admin: 12/13/20 01:45 Dose: Not Given Documented by: Heparin Sodium (Porcine) (Heparin Sodium 100 Units/Ml 5 Ml Syringe) 500 units FLUSH Q30D [facility] Last Admin: 12/13/20 07:52 Dose: 500 units Documented by: - Exam Quality Assessment: Supplemental Oxygen, Central Line/PICC (Port-A-Cath), DVT Prophylaxis (Lovenox). No: Urine Catheter, Skin Breakdown Central Line Total Time: 0Days 9Hours General: Alert, Oriented, Cooperative, No Acute Distress HEENT: Pupils Equal, Pupils Reactive, EOMI, Mucous Membr. Moist/[place], Other (Patient is wearing glasses. No vertigo or nystagmus). No: Scleral Icterus Neck: Supple, Trachea Midline, No JVD, No Thyromegaly, +2 Carotid Pulse wo Bruit. No: Lymphadenopathy Lungs: Rales (Improved mild to moderate bilateral basilar rales), Other (Left chest Port-A-Cath). No: Normal Respiratory Effort (Improved chronic dyspnea with decreased intercostal retractions), Rhonchi, Rub, Wheezing Cardiovascular: Regular Rate, No Murmurs. No: Regular Rhythm (Occasional extrasystolesPVCs per monitor), Gallops, Rubs GI/Abdominal Exam: Normal Bowel Sounds, Soft, Non-Tender, No Organomegaly, No Distention, No Abnormal Bruit, No Mass. No: Guarding (Female) Exam: Deferred Back Exam: Full Range of Motion, Other (Mild scoliosis). No: CVA Tenderness (L), CVA Tenderness (R), Muscle Spasm, Paraspinal Tenderness, Vertebral Tenderness Extremities: Normal Inspection, Normal Range of Motion, Non-Tender, No Pedal Edema, Normal Capillary Refill. No: Melody's Sign Peripheral Pulses: 2+: Radial (L), Radial (R), Dorsalis Pedis (L), Dorsalis Pedis (R) Skin: Warm, Dry, Intact. No: Ecchymosis Neurological: No New Focal Deficit, Other (Negative Babinski's) Psy/Mental Status: Alert, Normal Affect, Normal Mood. No: Agitated, Hallucinations, Withdrawal Symptoms #1 Interpretation EKG Date: 12/13/20 Time: 08:32 Rhythm: Other (Occasional PVCs) Rate (Beats/Min): 85 [place]: RAD-Right [place] Deviation P-Wave: Enlarged (Moderate diffuse biphasic P waves) QRS: Normal (0.09 seconds) ST-T: Normal (Noisy baseline with nonspecific ST changes and stable T wave inversion in lead V1) QT: Normal [place]/PQ Interval: 0.14 seconds representing a short [place] interval with extreme poor R wave progression in the anterior leads Comparison: No Change (Since 12/12/2020) EKG Interpretation Comments: 1. No acute ischemic changes 2. Left atrial enlargement 3. Short [place] interval 4. PVCs - Patient Data Lab Results Last 24 hrs: Laboratory Results - last 24 hr 12/12/20 12/12/20 12/12/20 Range/Units 22:55 22:55 22:55 WBC 8.3 (4.0-10.2) K/uL RBC 3.94 (3.77-5.09) M/uL Hgb 12.2 D (11.7-15.5) g/dL Hct 41.3 (34.0-46.0) % MCV 104.8 H D (84.0-98.0) fL MCH 31.0 (28.2-33.3) pg MCHC 29.5 L (31.7-36.0) g/dL RDW 13.4 (11.2-14.1) % Plt Count 287 (150-350) K/uL Neut % (Auto) 81.6 H (45.0-80.0) % Lymph % (Auto) 8.9 L (10.0-50.0) % [place] % (Auto) 9.3 (2.0-14.0) % Eos % (Auto) 0.0 (0.0-5.0) % Baso % (Auto) 0.2 (0.0-2.0) % Neut # (Auto) 6.77 (1.40-7.00) K/uL Lymph # (Auto) 0.74 (0.50-3.50) K/uL [place] # (Auto) 0.77 (0.00-1.00) K/uL Eos # (Auto) 0.00 (0.00-0.50) K/uL Baso # (Auto) 0.02 (0.00-0.20) K/uL PT 9.3 L (9.5-12.0) SEC INR 0.9 APTT 26.8 (24.5-32.8) SEC D-Dimer, Quantitative 308 (0-400) ng/mL Sodium (136-145) mmol/L Potassium (3.5-5.1) mmol/L Chloride (98-107) mmol/L Carbon Dioxide (21.0-32.0) mmol/L BUN (7-18) mg/dL Creatinine (0.51-1.17) mg/dL Est Cr Clr Drug Dosing Estimated GFR (MDRD) mL/min Glucose (70-99) mg/dL Hemoglobin A1c (4.3-5.7) % Lactic Acid (0.4-2.0) mmol/L Calcium (8.5-10.1) mg/dL Magnesium (1.8-2.4) mg/dL Total Bilirubin (0.2-1.0) mg/dL AST (15-37) U/L ALT (12-78) U/L Alkaline Phosphatase (46-116) IU/L Creatine Kinase (26-308) U/L Creatine Kinase Index (0.0-2.5) % CK-MB (CK-2) (0.00-3.60) ng/mL Troponin I (0.000-0.056) ng/mL NT-Pro-B Natriuret Pep (0-125) pg/mL Total Protein (6.4-8.2) g/dL Albumin (3.4-5.0) g/dL Triglycerides (30-150) mg/dL Cholesterol (100-200) mg/dL LDL Cholesterol, Calc (0-100) mg/dL HDL Cholesterol (40-60) mg/dL Vitamin B12 (193-986) pg/mL Folate (8.6-58.9) ng/mL TSH, Ultra Sensitive (0.358-3.740) mIU/mL Digoxin (0.90-2.00) ng/mL 12/12/20 12/12/20 12/12/20 Range/Units 22:55 22:55 22:55 WBC (4.0-10.2) K/uL RBC (3.77-5.09) M/uL Hgb (11.7-15.5) g/dL Hct (34.0-46.0) % MCV (84.0-98.0) fL MCH (28.2-33.3) pg MCHC (31.7-36.0) g/dL RDW (11.2-14.1) % Plt Count (150-350) K/uL Neut % (Auto) (45.0-80.0) % Lymph % (Auto) (10.0-50.0) % [place] % (Auto) (2.0-14.0) % Eos % (Auto) (0.0-5.0) % Baso % (Auto) (0.0-2.0) % Neut # (Auto) (1.40-7.00) K/uL Lymph # (Auto) (0.50-3.50) K/uL [place] # (Auto) (0.00-1.00) K/uL Eos # (Auto) (0.00-0.50) K/uL Baso # (Auto) (0.00-0.20) K/uL PT (9.5-12.0) SEC INR APTT (24.5-32.8) SEC D-Dimer, Quantitative (0-400) ng/mL Sodium 142 (136-145) mmol/L Potassium 4.1 (3.5-5.1) mmol/L Chloride 98 (98-107) mmol/L Carbon Dioxide 43.4 H* (21.0-32.0) mmol/L BUN 21 H (7-18) mg/dL Creatinine 0.51 (0.51-1.17) mg/dL Est Cr Clr Drug Dosing TNP Estimated GFR (MDRD) > 60 mL/min Glucose 152 H (70-99) mg/dL Hemoglobin A1c (4.3-5.7) % Lactic Acid 0.9 (0.4-2.0) mmol/L Calcium 8.6 (8.5-10.1) mg/dL Magnesium 1.8 (1.8-2.4) mg/dL Total Bilirubin 0.2 (0.2-1.0) mg/dL AST 16 (15-37) U/L ALT 18 (12-78) U/L Alkaline Phosphatase 61 (46-116) IU/L Creatine Kinase 49 (26-308) U/L Creatine Kinase Index 3.7 H (0.0-2.5) % CK-MB (CK-2) 1.80 (0.00-3.60) ng/mL Troponin I 0.021 (0.000-0.056) ng/mL NT-Pro-B Natriuret Pep 1495 H (0-125) pg/mL Total Protein 6.5 (6.4-8.2) g/dL Albumin 3.2 L (3.4-5.0) g/dL Triglycerides (30-150) mg/dL Cholesterol (100-200) mg/dL LDL Cholesterol, Calc (0-100) mg/dL HDL Cholesterol (40-60) mg/dL Vitamin B12 (193-986) pg/mL Folate (8.6-58.9) ng/mL TSH, Ultra Sensitive 0.628 (0.358-3.740) mIU/mL Digoxin 0.48 L (0.90-2.00) ng/mL 12/13/20 12/13/20 12/13/20 Range/Units 07:46 07:46 07:46 WBC 9.9 (4.0-10.2) K/uL RBC 3.96 (3.77-5.09) M/uL Hgb 12.6 (11.7-15.5) g/dL Hct 40.1 (34.0-46.0) % MCV 101.3 H D (84.0-98.0) fL MCH 31.8 (28.2-33.3) pg MCHC 31.4 L (31.7-36.0) g/dL RDW 13.4 (11.2-14.1) % Plt Count 288 (150-350) K/uL Neut % (Auto) 65.6 (45.0-80.0) % Lymph % (Auto) 21.5 (10.0-50.0) % [place] % (Auto) 12.5 (2.0-14.0) % Eos % (Auto) 0.1 (0.0-5.0) % Baso % (Auto) 0.3 (0.0-2.0) % Neut # (Auto) 6.48 (1.40-7.00) K/uL Lymph # (Auto) 2.12 (0.50-3.50) K/uL [place] # (Auto) 1.23 H (0.00-1.00) K/uL Eos # (Auto) 0.01 (0.00-0.50) K/uL Baso # (Auto) 0.03 (0.00-0.20) K/uL PT (9.5-12.0) SEC INR APTT (24.5-32.8) SEC D-Dimer, Quantitative (0-400) ng/mL Sodium 145 (136-145) mmol/L Potassium 3.7 (3.5-5.1) mmol/L Chloride 97 L (98-107) mmol/L Carbon Dioxide 49.0 H* (21.0-32.0) mmol/L BUN 14 (7-18) mg/dL Creatinine 0.51 (0.51-1.17) mg/dL Est Cr Clr Drug Dosing 72.57 Estimated GFR (MDRD) > 60 mL/min Glucose 93 (70-99) mg/dL Hemoglobin A1c 5.6 (4.3-5.7) % Lactic Acid (0.4-2.0) mmol/L Calcium 8.5 (8.5-10.1) mg/dL Magnesium (1.8-2.4) mg/dL Total Bilirubin 0.3 (0.2-1.0) mg/dL AST 20 (15-37) U/L ALT 19 (12-78) U/L Alkaline Phosphatase 57 (46-116) IU/L Creatine Kinase 77 (26-308) U/L Creatine Kinase Index 2.9 H (0.0-2.5) % CK-MB (CK-2) 2.20 (0.00-3.60) ng/mL Troponin I 0.031 (0.000-0.056) ng/mL NT-Pro-B Natriuret Pep 1182 H (0-125) pg/mL Total Protein 6.7 (6.4-8.2) g/dL Albumin 3.4 (3.4-5.0) g/dL Triglycerides 79 (30-150) mg/dL Cholesterol 222 H (100-200) mg/dL LDL Cholesterol, Calc 124 H (0-100) mg/dL HDL Cholesterol 82 H (40-60) mg/dL Vitamin B12 690 (193-986) pg/mL Folate 17.7 (8.6-58.9) ng/mL TSH, Ultra Sensitive (0.358-3.740) mIU/mL Digoxin (0.90-2.00) ng/mL Result Diagrams: 12/13/20 07:46 12/13/20 07:46 Sepsis Event Note - Evaluation Sepsis Screening Result: No Definite Risk - Focused Exam Vital Signs: Vital Signs Temp Pulse Pulse Resp BP BP Pulse Ox 12/13/20 07:50 105 H 130/59 L 12/13/20 07:40 37.1 C 104 H 22 H 130/59 L 96 12/13/20 03:54 37.2 C 97 20 132/68 92 L 12/13/20 02:00 37.3 C 98 22 H 122/53 L 95 12/13/20 01:02 107 H 12/13/20 00:37 36.9 C 78 27 H 123/63 96 12/13/20 00:03 83 23 H 136/72 95 12/12/20 23:19 36.5 C 93 26 H 119/75 92 L 12/12/20 22:47 12/12/20 22:13 37.6 C 103 H 22 H 124/62 92 L Pulse Ox 12/13/20 07:50 12/13/20 07:40 12/13/20 03:54 12/13/20 02:00 12/13/20 01:02 12/13/20 00:37 12/13/20 00:03 12/12/20 23:19 12/12/20 22:47 96 12/12/20 22:13 - Problem List & Annotations (1) CHF (congestive heart failure) SNOMED Code(s): 85139997 Code(s): I50.9 - HEART FAILURE, UNSPECIFIED Status: Acute Priority: High Current Visit: Yes Onset Date: 12/12/20 Qualifiers: Heart failure type: unspecified Heart failure chronicity: acute Qualified Code(s): I50.9 - Heart failure, unspecified Annotation/Comment:: Continue current IV Lasix dose for now with consideration of changing to a IV twice daily regimen tomorrow with close observation of her potassium level. Initiate lisinopril this evening with close observation of her renal status, blood pressures, etc. [facility] provider assumes care in the a.m. The patient had previously taken her Lanoxin in the evening with previous subtherapeutic digoxin level prior to admission likely a trough level. Her digoxin will be changed to a every morning regimen so that a therapeutic digoxin level may be conducted by her regular providers on an outpatient basis. Echocardiogram should be conducted on an outpatient basis with possibility of scheduling this evaluation in this facility for 12/18/2020. No true chest pain or anginal type symptoms with artifactually elevated CK index secondary to low baseline CK with normal CK-MB with improving cardiac index at this time. Mild progression of her troponin I despite improved BNP, however this is still normal and likely secondary to her CHF. Continue standard rule out OR orders with repeat blood work in the a.m. Cardiology consultation depending on her clinical course. Consider dobutamine Cardiolite stress test on an outpatient basis by her regular providers once her CHF, etc. have stabilized. Glycosylated hemoglobin normal at 5.6% with mildly elevated lipid profile, which will be observed for now secondary to her cachexia. (2) COPD (chronic obstructive pulmonary disease) SNOMED Code(s): 97750763 Code(s): J44.9 - CHRONIC OBSTRUCTIVE PULMONARY DISEASE, UNSPECIFIED Status: Chronic Priority: Medium Current Visit: Yes Qualifiers: COPD type: emphysema Emphysema type: panlobular Qualified Code(s): J43.1 - Panlobular emphysema Annotation/Comment:: No significant pneumonia or bronchitis based on chest x- ray. Note O2 dependent COPD with increased oxygen requirement secondary to her CHF. Some increased CO2 retention with current oxygen at 3 L/min by nasal arnaldo ramon with attempts to taper the patient back to her baseline 2 L/min level today. Continue previous Keflex therapy. Continue aggressive nebulizer therapy, Mucinex DM, and incentive spirometry with the patient encouraged to use her nebulizer treatments and Mucinex DM on a regular long-term basis rather than as needed as before. Sputum specimen is yet to be obtained. Initiate IV Solu- Medrol in lieu of her previous oral prednisone therapy with continuation of tapering oral prednisone regimen at discharge. Blood cultures x2 were collected with no leukocytosis, fever, etc. Note normal lactic acid level on admission. Additional history of sleep apnea with the patient not able to tolerate her CPAP. She did have a pulmonology appointment scheduled for 12/14, which she has rescheduled. Note history of recent Covid on 10/18/2020 with incomplete immunization as per emergency room note. (3) Cachexia SNOMED Code(s): 268900829 Code(s): R64 - CACHEXIA Status: Chronic Priority: Medium Current Visit: Yes Annotation/Comment:: Likely secondary to her O2 dependent COPD. Note previous history of distant breast cancer. Continue to observe closely. (4) Hypoalbuminemia SNOMED Code(s): 402162972 Code(s): E88.09 - OTH DISORDERS OF PLASMA-PROTEIN METABOLISM, NEC Status: Acute Priority: Medium Current Visit: Yes Onset Date: 12/13/20 Annotation/Comment:: Observe for now. Consider high-protein Glucerna supplements. (5) Macrocytosis SNOMED Code(s): 799191896 Code(s): D75.89 - OTHER SPECIFIED DISEASES OF BLOOD AND BLOOD-FORMING ORGANS Status: Chronic Priority: Medium Current Visit: Yes Annotation/Comment:: Vitamin B12 and folic acid levels are normal. TIBC panel and ferritin level are still pending. (6) PVCs (premature ventricular contractions) SNOMED Code(s): 06098283 Code(s): I49.3 - VENTRICULAR PREMATURE DEPOLARIZATION Status: Acute Priority: Medium Current Visit: Yes Onset Date: 12/12/20 Annotation/Comment:: Newly diagnosed. Nonsymptomatic. Note previous history of PSVT with current subtherapeutic random digoxin level with change of her digoxin to an a.m. basis as above. (7) Shortened [place] interval SNOMED Code(s): 74748716 Code(s): R94.31 - ABNORMAL ELECTROCARDIOGRAM [ECG] [EKG] Status: Chronic Current Visit: Yes Onset Date: 02/18/20 Annotation/Comment:: Observe for now. (8) Tobacco abuse counseling SNOMED Code(s): 019482013, 649791693, 710975036 Code(s): Z71.6 - TOBACCO ABUSE COUNSELING Status: Chronic Priority: Medium Current Visit: Yes Annotation/Comment:: Tobacco cessation strongly encouraged with tobacco cessation information to be provided at discharge. (9) Osteoarthritis SNOMED Code(s): 797244142 Code(s): M19.90 - UNSPECIFIED OSTEOARTHRITIS, UNSPECIFIED SITE Status: Chronic Priority: Medium Current Visit: Yes Qualifiers: Osteoarthritis location: multiple joints Osteoarthritis type: primary Qualified Code(s): M89.49 - Other hypertrophic osteoarthropathy, multiple sites Annotation/Comment:: Stable by history chronic midthoracic back pain with additional history of rheumatoid arthritis and osteoporosis. (10) Hyperlipidemia SNOMED Code(s): 30231345 Code(s): E78.5 - HYPERLIPIDEMIA, UNSPECIFIED Status: Chronic Priority: Medium Current Visit: Yes Qualifiers: Hyperlipidemia type: mixed hyperlipidemia Qualified Code(s): E78.2 - Mixed hyperlipidemia Annotation/Comment:: Observe for now as above. (11) Peptic reflux disease SNOMED Code(s): 877520924 Code(s): K21.9 - GASTRO-ESOPHAGEAL REFLUX DISEASE WITHOUT ESOPHAGITIS Status: Chronic Priority: Medium Current Visit: Yes Annotation/Comment:: Stable by history with current medical therapy. Continue oral Prilosec for now. - Problem List Review Problem List Initiated/Reviewed/Updated: Yes - My Orders Last 24 Hours: My Active Orders 12/12/20 22:47 Cardiac Monitoring [RC] Q2HR Communication Order [RC] ROUTINE Chest 2V [CR] Stat CULTURE SPUTUM + SMEAR [RM] Urgent Sodium Chloride 0.9% [Saline Flush] 10 ml FLUSH ASDIRECTED PRN Blood Culture x2 Reflex Set [OM.PC] Stat Peripheral IV Insertion Adult [OM.PC] Stat Resuscitation Status Routine 12/12/20 22:55 CULTURE BLOOD [BC] Stat 12/12/20 23:02 CULTURE BLOOD [BC] Stat 12/13/20 00:36 Cetirizine [ZyrTEC] 10 mg PO DAILY PRN Digoxin [Lanoxin] 125 mcg PO SuMoWeFr 12/13/20 00:36 RT Post Treatment Assessment [RC] Click to Edit RT Pre-Treatment Assessment [RC] Click to Edit 12/13/20 00:37 Communication Order [RC] ROUTINE Height and Weight [RC] DAILY Intake and Output Strict [RC] 06,18 Oxygen Therapy [RC] 2300 Pulse Oximetry [RC] .PRN Up With Assistance [RC] ASDIRECTED Vital Signs [RC] Q2HR OCCULT BLOOD DIAGNOSTIC [OP] Stat Acetaminophen [TylenoL] 650 mg PO Q4H PRN Sodium Chloride 0.9% [Saline Flush] 10 ml FLUSH Q12HR PRN Temazepam [Restoril] 15 mg PO BEDTIME PRN Antiembolic Hose [OM.PC] Routine CHF Questionnaire [COMM] Routine DVT/VTE Prophylaxis Reflex [OM.PC] Routine GM Immunization Reflex [OM.PC] Click to Edit 12/13/20 00:38 Antiembolic Devices [RC] 08,20 Communication, Vaccine [RC] PER UNIT ROUTINE VTE/DVT Education [RC] PER UNIT ROUTINE 12/13/20 00:40 RT Incentive Spirometry [RC] ASDIRECTED 12/13/20 00:41 RT Aerosol Therapy [RC] 02,08,14,20 Albuterol [Proventil Neb Soln] 2.5 mg INH Q2H PRN 12/13/20 00:42 RT Aerosol Therapy [RC] .PRN levalbuterol HCL [Xopenex] 0.63 mg NEB Q4HRRT PRN 12/13/20 00:45 Enoxaparin [Lovenox] 40 mg SUBCUT Q24H Furosemide [Lasix] 40 mg IVPUSH Q8H 12/13/20 02:00 levalbuterol HCL [Xopenex] 0.63 mg NEB Q6HRRT 12/13/20 05:11 EKG Documentation Completion [RC] ASDIRECTED EKG 12 Lead [EK] Routine 12/13/20 07:30 Omeprazole 20 mg PO ACBREAKFAST 12/13/20 07:46 FERRITIN [CHEM] Routine IRON/TIBC [CHEM] Routine 12/13/20 08:00 Aspirin [Halfprin] 81 mg PO DAILY Calcium Carbonate [Tums] 1,000 mg PO DAILY Cholecalciferol (Vitamin D3) [Vitamin D3] 50 mcg PO DAILY Dextromethorphan/guaiFENesin [Mucinex DM ER 600-30 MG] 1 tab PO BID Digoxin [Lanoxin] 250 mcg PO TuThSa Fluticasone Propionate [Flonase] 0 gm NASBOTH BID Metoprolol Tartrate [Lopressor] 12.5 mg PO DAILY Potassium Chloride [Klor-Con M20] 20 meq PO TID Theophylline [Theophylline Anhydrous] 300 mg PO BID cephALEXin [Keflex] 500 mg PO TID 12/13/20 08:08 Heparin Sodium [Heparin Lock Flush 100 Units/ML] 500 units FLUSH ASDIRECTED PRN 12/13/20 12:00 Tiotropium [Spiriva HandiHaler] 18 mcg INH 1200 12/13/20 18:00 lisinopriL [Prinivil] 10 mg PO QPM 12/13/20 20:00 Fish Oil/[place]-3 Fatty Acids [Fish Oil] 1 gm PO BEDTIME Montelukast [Singulair] 10 mg PO BEDTIME 12/14/20 05:11 EKG 12 Lead [EK] Routine - Assessment Assessment:: As above - Plan Plan:: As above. Extensive precautions were given to the patient, who is in agreement with the treatment plan. The patient will require about 2-3 days of inpatient/acute care secondary to multiple health problems as above. Saima olvera provider assumes care in the a.m.
[2020-12-13] MEDS ORDERED: methylPREDNISolone Sodium Succinate 125 MG/2 ML SDV IVPUSH SCH (09:30)
[2020-12-13] MEDS: Digoxin 250 MCG Tab PO SCH (10:57)
[2020-12-13] MEDS: Tiotropium Inhaler 18 MCG Inhalation Powder Cap Kit of 5 INH SCH (11:07)
[2020-12-13] MEDS ORDERED: Lisinopril 10 MG Tab PO SCH (18:00)
[2020-12-13] MEDS: Nicotine 7 MG/24 Hr Patch TRDERM SCH (18:22)
[2020-12-13] MEDS ORDERED: Nicotine 7 MG/24 Hr Patch TRDERM SCH (19:00)
[2020-12-13] MEDS: Fish Oil/Omega-3 Fatty Acids 1 Gm Cap PO SCH (19:44)
[2020-12-13] MEDS: Montelukast 10 MG Tab PO SCH (19:44)
[2020-12-13] MEDS: methylPREDNISolone Sodium Succinate 125 MG/2 ML SDV IVPUSH SCH (19:45)
[2020-12-13] MEDS: Lisinopril 5 MG Tab PO SCH (20:00)
[2020-12-14] MEDS: Digoxin 125 MCG Tab PO SCH (00:38)
[2020-12-14] MEDS: Enoxaparin 40 MG/0.4 ML Syringe SUBCUT SCH (00:38)
[2020-12-14] MEDS: Furosemide 40 MG/4 ML VIAL IVPUSH SCH ×2 (00:40→07:50)
[2020-12-14] MEDS: Levalbuterol HCl 0.63 MG/3 ML Neb NEB SCH ×4 (02:23→19:43)
[2020-12-14] MEDS: Acetaminophen 325 MG Tab PO PRN (05:44)
[2020-12-14] MEDS: Potassium Chloride 20 MEQ Tab.ER PO SCH ×3 (07:45→18:13)
[2020-12-14] MEDS: Cephalexin 250 MG Cap PO SCH (07:46)
[2020-12-14] MEDS: Calcium Carbonate 500 MG Tab.Chew PO SCH (07:47)
[2020-12-14] MEDS: Omeprazole 20 MG Cap.CR PO SCH (07:47)
[2020-12-14] MEDS: Cholecalciferol (Vitamin D3) 25 MCG Tab PO SCH (07:47)
[2020-12-14] MEDS: methylPREDNISolone Sodium Succinate 125 MG/2 ML SDV IVPUSH SCH ×2 (07:48→19:42)
[2020-12-14] MEDS: Metoprolol Tartrate 25 MG Tab PO SCH (07:59)
[2020-12-14] MEDS: Aspirin 81 MG Tab.EC PO SCH (07:59)
[2020-12-14] MEDS: Dextromethorphan/guaiFENesin 600-30 MG Tab.ER PO SCH ×2 (08:00→18:14)
[2020-12-14] MEDS: Theophylline 300 MG Tab.ER PO SCH ×2 (08:00→18:13)
[2020-12-14 08:51] LABS: CHLORIDE,CL 97 mmol/L (98-107); SODIUM,NA 142 mmol/L (136-145)
[2020-12-14] MEDS: Doxycycline Monohydrate 100 MG Cap PO SCH ×2 (11:15→18:13)
[2020-12-14] MEDS: Tiotropium Inhaler 18 MCG Inhalation Powder Cap Kit of 5 INH SCH (11:15)
[2020-12-14] MEDS: Fluticasone Propionate Nasal Spray 16 GM Bottle NASBOTH SCH ×2 (11:15→18:18)
[2020-12-14] MEDS: Nicotine 7 MG/24 Hr Patch TRDERM SCH (18:14)
[2020-12-14] MEDS: Lisinopril 5 MG Tab PO SCH (19:40)
[2020-12-14] MEDS: Montelukast 10 MG Tab PO SCH (19:40)
[2020-12-14] MEDS: Fish Oil/Omega-3 Fatty Acids 1 Gm Cap PO SCH (19:40)
[2020-12-15] MEDS: Levalbuterol HCl 0.63 MG/3 ML Neb NEB SCH ×5 (01:44→20:20)
[2020-12-15] MEDS: Acetaminophen 325 MG Tab PO PRN ×2 (02:19→22:54)
--- NOTE | 2020-12-15 02:42 | PCM.PN ---
- General Info Date of Service: 12/14/20 Admission Dx/Problem (Free Text): Pt. states that she is feeling much improved this AM. She states that she is no longer short of breath at rest. She states that she is short of breath when ambulating. Pt. does report complaints of lightheadedness when standing and ambulating. She also complains of mild headache which responds to tylenol. She has been in a sinus rhythm without any acute ST or T wave abnormality. She has been having occasional unifocal PVCs. Appetite has been strong. She has been eating most of her meals today. Nursing staff states that she is markedly less dyspneic today than she was on admission. Functional Status: Reports: Pain Controlled - Review of Systems General: Reports: No Symptoms HEENT: Reports: No Symptoms Pulmonary: Reports: Shortness of Breath, Cough Cardiovascular: Reports: No Symptoms Gastrointestinal: Reports: No Symptoms Genitourinary: Reports: No Symptoms Musculoskeletal: Reports: No Symptoms Skin: Reports: No Symptoms Neurological: Reports: No Symptoms Psychiatric: Reports: No Symptoms - Patient Data Vitals - Most Recent: Last Vital Signs Temp 37.4 C 12/14/20 20:00 Pulse 80 12/14/20 20:00 Resp 16 12/14/20 20:00 BP 119/55 L 12/14/20 20:00 Pulse Ox 92 L 12/14/20 20:00 Weight - Most Recent: 43.001 kg I&O - Last 24 Hours: Intake & Output 12/14/20 12/14/20 12/15/20 14:59 22:59 06:59 Intake Total 340 500 Output Total 800 Balance 340 -300 Lab Results Last 24 Hours: Laboratory Results - last 24 hr 12/14/20 12/14/20 Range/Units 07:20 07:20 WBC 7.0 (4.0-10.2) K/uL RBC 4.15 (3.77-5.09) M/uL Hgb 13.1 (11.7-15.5) g/dL Hct 41.0 (34.0-46.0) % MCV 98.8 H (84.0-98.0) fL MCH 31.6 (28.2-33.3) pg MCHC 32.0 (31.7-36.0) g/dL RDW 13.4 (11.2-14.1) % Plt Count 317 (150-350) K/uL Neut % (Auto) 79.4 (45.0-80.0) % Lymph % (Auto) 12.5 (10.0-50.0) % [place] % (Auto) 8.0 (2.0-14.0) % Eos % (Auto) 0.0 (0.0-5.0) % Baso % (Auto) 0.1 (0.0-2.0) % Neut # (Auto) 5.57 (1.40-7.00) K/uL Lymph # (Auto) 0.88 (0.50-3.50) K/uL [place] # (Auto) 0.56 (0.00-1.00) K/uL Eos # (Auto) 0.00 (0.00-0.50) K/uL Baso # (Auto) 0.01 (0.00-0.20) K/uL Sodium 142 (136-145) mmol/L Potassium 4.3 (3.5-5.1) mmol/L Chloride 97 L (98-107) mmol/L Carbon Dioxide 43.6 H* (21.0-32.0) mmol/L BUN 21 H (7-18) mg/dL Creatinine 0.61 (0.51-1.17) mg/dL Est Cr Clr Drug Dosing 60.68 mL/min Estimated GFR (MDRD) > 60 mL/min Glucose 121 H (70-99) mg/dL Calcium 9.1 (8.5-10.1) mg/dL Creatine Kinase 77 (26-308) U/L Creatine Kinase Index 3.0 H (0.0-2.5) % CK-MB (CK-2) 2.30 (0.00-3.60) ng/mL Troponin I 0.023 (0.000-0.056) ng/mL NT-Pro-B Natriuret Pep 643 H (0-125) pg/mL Davin Results Last 24 Hours: Microbiology 12/12/20 23:02 Aerobic Blood Culture - Preliminary Blood - Venous - Lab Draw NO GROWTH AFTER 2 DAYS Anaerobic Blood Culture - Preliminary NO GROWTH AFTER 2 DAYS 12/12/20 22:55 Aerobic Blood Culture - Preliminary Blood - Venous NO GROWTH AFTER 2 DAYS Anaerobic Blood Culture - Preliminary NO GROWTH AFTER 2 DAYS Med Orders - Current: Current Medications Acetaminophen (Acetaminophen 325 Mg Tab) 650 mg PO Q4H PRN PRN Reason: Pain Last Admin: 12/15/20 02:19 Dose: 650 mg Documented by: Albuterol (Albuterol 0.083% 2.5 Mg/3 Ml Neb Soln) 2.5 mg INH Q2H PRN PRN Reason: SHORTNESS OF BREATH Aspirin (Aspirin 81 Mg Tab.Ec) 81 mg PO DAILY [facility] Last Admin: 12/14/20 07:59 Dose: 81 mg Documented by: Calcium Carbonate/Glycine (Calcium Carbonate 500 Mg Tab.Chew) 1,000 mg PO DAILY [facility] Last Admin: 12/14/20 07:47 Dose: 1,000 mg Documented by: Cetirizine HCl (Cetirizine 10 Mg Tab) 10 mg PO DAILY PRN PRN Reason: Allergies Cholecalciferol (Cholecalciferol (Vitamin D3) 25 Mcg Tab) 50 mcg PO DAILY [facility] Last Admin: 12/14/20 07:47 Dose: 50 mcg Documented by: Digoxin (Digoxin 125 Mcg Tab) 125 mcg PO SuMoWeFr [facility] Last Admin: 12/14/20 00:38 Dose: 125 mcg Documented by: Digoxin (Digoxin 250 Mcg Tab) 250 mcg PO TuThSa [facility] Last Admin: 12/13/20 10:57 Dose: 250 mcg Documented by: Doxycycline Monohydrate (Doxycycline Monohydrate 100 Mg Cap) 100 mg PO BID [facility] Last Admin: 12/14/20 18:13 Dose: 100 mg Documented by: Enoxaparin Sodium (Enoxaparin 40 Mg/0.4 Ml Syringe) 40 mg SUBCUT DAILY [facility] Fish Oil (Fish Oil/[place]-3 Fatty Acids 1 Gm Cap) 1 gm PO BEDTIME [facility] Last Admin: 12/14/20 19:40 Dose: 1 gm Documented by: Fluticasone Propionate (Fluticasone Propionate Nasal [place] 16 Gm Bottle) 0 gm NASBOTH BID [facility] Last Admin: 12/14/20 18:18 Dose: 1 spray Documented by: Guaifenesin/Dextromethorphan (Dextromethorphan/Guaifenesin 600-30 Mg Tab.Er) 1 tab PO BID [facility] Last Admin: 12/14/20 18:14 Dose: 1 tab Documented by: Heparin Sodium (Porcine) (Heparin Sodium 100 Units/Ml 5 Ml Syringe) 500 units FLUSH ASDIRECTED PRN PRN Reason: Keep Vein Open Last Admin: 12/13/20 15:56 Dose: 500 units Documented by: Levalbuterol HCl (Levalbuterol Hcl 0.63 Mg/3 Ml Neb) 0.63 mg NEB Q6HRRT [facility] Last Admin: 12/15/20 02:04 Dose: 0.63 mg Documented by: Levalbuterol HCl (Levalbuterol Hcl 0.63 Mg/3 Ml Neb) 0.63 mg NEB Q4HRRT PRN PRN Reason: Dyspnea Last Admin: 12/13/20 00:49 Dose: 0.63 mg Documented by: Lisinopril (Lisinopril 5 Mg Tab) 5 mg PO BEDTIME [facility] Last Admin: 12/14/20 19:40 Dose: 5 mg Documented by: Methylprednisolone Sodium Succinate (Methylprednisolone Sodium Succinate 125 Mg/2 Ml Sdv) 125 mg IVPUSH Q12HR [facility] Last Admin: 12/14/20 19:42 Dose: 125 mg Documented by: Metoprolol Tartrate (Metoprolol Tartrate 25 Mg Tab) 12.5 mg PO DAILY [facility] Last Admin: 12/14/20 07:59 Dose: 12.5 mg Documented by: Miscellaneous Information (Remove Patch) 1 ea TRDERM DAILY@1900 [facility] Last Admin: 12/14/20 18:15 Dose: 1 ea Documented by: Montelukast Sodium (Montelukast 10 Mg Tab) 10 mg PO BEDTIME [facility] Last Admin: 12/14/20 19:40 Dose: 10 mg Documented by: Nicotine (Nicotine 7 Mg/24 Hr Patch) 7 mg TRDERM DAILY@1900 [facility] Last Admin: 12/14/20 18:14 Dose: 7 mg Documented by: Omeprazole (Omeprazole 20 Mg Cap.Cr) 20 mg PO ACBREAKFAST [facility] Last Admin: 12/14/20 07:47 Dose: 20 mg Documented by: Potassium Chloride (Potassium Chloride 20 Meq Tab.Er) 20 meq PO TID [facility] Last Admin: 12/14/20 18:13 Dose: 20 meq Documented by: Sodium Chloride (Sodium Chloride 0.9% 10 Ml Syringe) 10 ml FLUSH ASDIRECTED PRN PRN Reason: Keep Vein Open Last Admin: 12/13/20 19:45 Dose: 10 ml Documented by: Sodium Chloride (Sodium Chloride 0.9% 10 Ml Syringe) 10 ml FLUSH Q12HR PRN PRN Reason: Keep Vein Open Temazepam (Temazepam 15 Mg Cap) 15 mg PO BEDTIME PRN PRN Reason: Insomnia Theophylline (Theophylline 300 Mg Tab.Er) 300 mg PO BID [facility] Last Admin: 12/14/20 18:13 Dose: 300 mg Documented by: Tiotropium [place] (Tiotropium Inhaler 18 Mcg Inhalation Powder Cap Kit Of 5) 18 mcg INH 1200 [facility] Last Admin: 12/14/20 11:15 Dose: 1 inhalation Documented by: Discontinued Medications Cephalexin (Cephalexin 250 Mg Cap) 500 mg PO TID [facility] Stop: 12/19/20 18:01 Last Admin: 12/14/20 07:46 Dose: 500 mg Documented by: Digoxin (Digoxin 250 Mcg Tab) 250 mcg PO TuThSa [facility] Last Admin: 12/13/20 01:45 Dose: Not Given Documented by: Enoxaparin Sodium (Enoxaparin 40 Mg/0.4 Ml Syringe) 40 mg SUBCUT Q24H [facility] Last Admin: 12/14/20 00:38 Dose: 40 mg Documented by: Furosemide (Furosemide 40 Mg/4 Ml Vial) 40 mg IVPUSH Q8H [facility] Last Admin: 12/13/20 15:56 Dose: 40 mg Documented by: Furosemide (Furosemide 40 Mg/4 Ml Vial) 40 mg IVPUSH Q8H [facility] Last Admin: 12/14/20 07:50 Dose: 40 mg Documented by: Heparin Sodium (Porcine) (Heparin Sodium 100 Units/Ml 5 Ml Syringe) 500 units FLUSH Q30D [facility] Last Admin: 12/13/20 07:52 Dose: 500 units Documented by: Lisinopril (Lisinopril 10 Mg Tab) 10 mg PO QPM [facility] Last Admin: 12/13/20 17:03 Dose: Not Given Documented by: Methylprednisolone Sodium Succinate (Methylprednisolone Sodium Succinate 125 Mg/2 Ml Sdv) 125 mg IVPUSH Q12H [facility] Last Admin: 12/13/20 10:56 Dose: 125 mg Documented by: Nicotine (Nicotine 7 Mg/24 Hr Patch) 7 mg TRDERM DAILY MARTÍNEZ - Exam Quality Assessment: Supplemental Oxygen Central Line Total Time: 1Days 21Hours General: Alert, Oriented Neck: Supple Lungs: Decreased Breath Sounds, Wheezing Cardiovascular: Regular Rate, Regular Rhythm GI/Abdominal Exam: Normal Bowel Sounds, Soft, Non-Tender, No Organomegaly, No Distention, No Mass (Female) Exam: Deferred Back Exam: Normal Inspection, Full Range of Motion Extremities: Normal Inspection, Normal Range of Motion, Non-Tender, No Pedal Edema, Normal Capillary Refill Peripheral Pulses: 4+: Radial (R) Skin: Warm, Dry Neurological: No New Focal Deficit Psy/Mental Status: Alert, Normal Affect, Normal Mood - Patient Data Lab Results Last 24 hrs: Laboratory Results - last 24 hr 12/14/20 12/14/20 Range/Units 07:20 07:20 WBC 7.0 (4.0-10.2) K/uL RBC 4.15 (3.77-5.09) M/uL Hgb 13.1 (11.7-15.5) g/dL Hct 41.0 (34.0-46.0) % MCV 98.8 H (84.0-98.0) fL MCH 31.6 (28.2-33.3) pg MCHC 32.0 (31.7-36.0) g/dL RDW 13.4 (11.2-14.1) % Plt Count 317 (150-350) K/uL Neut % (Auto) 79.4 (45.0-80.0) % Lymph % (Auto) 12.5 (10.0-50.0) % [place] % (Auto) 8.0 (2.0-14.0) % Eos % (Auto) 0.0 (0.0-5.0) % Baso % (Auto) 0.1 (0.0-2.0) % Neut # (Auto) 5.57 (1.40-7.00) K/uL Lymph # (Auto) 0.88 (0.50-3.50) K/uL [place] # (Auto) 0.56 (0.00-1.00) K/uL Eos # (Auto) 0.00 (0.00-0.50) K/uL Baso # (Auto) 0.01 (0.00-0.20) K/uL Sodium 142 (136-145) mmol/L Potassium 4.3 (3.5-5.1) mmol/L Chloride 97 L (98-107) mmol/L Carbon Dioxide 43.6 H* (21.0-32.0) mmol/L BUN 21 H (7-18) mg/dL Creatinine 0.61 (0.51-1.17) mg/dL Est Cr Clr Drug Dosing 60.68 mL/min Estimated GFR (MDRD) > 60 mL/min Glucose 121 H (70-99) mg/dL Calcium 9.1 (8.5-10.1) mg/dL Creatine Kinase 77 (26-308) U/L Creatine Kinase Index 3.0 H (0.0-2.5) % CK-MB (CK-2) 2.30 (0.00-3.60) ng/mL Troponin I 0.023 (0.000-0.056) ng/mL NT-Pro-B Natriuret Pep 643 H (0-125) pg/mL Result Diagrams: 12/14/20 07:20 12/14/20 07:20 Davin Results Last 24 hrs: Microbiology 12/12/20 23:02 Aerobic Blood Culture - Preliminary Blood - Venous - Lab Draw NO GROWTH AFTER 2 DAYS Anaerobic Blood Culture - Preliminary NO GROWTH AFTER 2 DAYS 12/12/20 22:55 Aerobic Blood Culture - Preliminary Blood - Venous NO GROWTH AFTER 2 DAYS Anaerobic Blood Culture - Preliminary NO GROWTH AFTER 2 DAYS Sepsis Event Note - Evaluation Sepsis Screening Result: No Definite Risk - Focused Exam Vital Signs: Vital Signs Temp Pulse Resp BP BP Pulse Ox 12/14/20 20:00 37.4 C 80 16 119/55 L 92 L 12/14/20 19:40 119/55 L 12/14/20 16:00 36.8 C 85 16 130/70 95 - Problem List Review Problem List Initiated/Reviewed/Updated: Yes - My Orders Last 24 Hours: My Active Orders 12/14/20 09:45 Doxycycline Monohydrate 100 mg PO BID 12/14/20 19:03 CBC WITH AUTO DIFF [HEME] Routine 12/14/20 19:05 COMPREHENSIVE METABOLIC PN,CMP [CHEM] Routine - Assessment Assessment:: As above - Plan Plan:: Pt. was changed from keflex to doxycycline for COPD exacerbation. Pt. had been on keflex for sinusitis. The doxycycline is a better option for both COPD exacerbation as well as sinusitis. Lasix was stopped. Chest x-ray did not indicate any evidence of CHF. She has no crackles or peripheral edema. She complains of lightheadedness and is orthostati c when standing. Continue xopenex breathing treatments. Ambulation was encouraged. Pt. will be kept inpatient at least for today, with possible discharge tomorrow. Prescriptions for doxycycline and prednisone were sent to the pharmacy and picked up by , as the pharmacies are closed for the / holiday. As above. Extensive precautions were given to the patient, who is in agreement with the treatment plan. The patient will require about 2-3 days of inpatient/acute care secondary to multiple health problems as above. Saima olvera provider assumes care in the a.m.
[2020-12-15] MEDS: Enoxaparin 40 MG/0.4 ML Syringe SUBCUT SCH ×2 (06:48→07:50)
[2020-12-15] MEDS: Calcium Carbonate 500 MG Tab.Chew PO SCH (07:47)
[2020-12-15] MEDS: Cholecalciferol (Vitamin D3) 25 MCG Tab PO SCH (07:48)
[2020-12-15] MEDS: Theophylline 300 MG Tab.ER PO SCH ×2 (07:48→18:04)
[2020-12-15] MEDS: Omeprazole 20 MG Cap.CR PO SCH (07:49)
[2020-12-15] MEDS: Doxycycline Monohydrate 100 MG Cap PO SCH ×2 (07:49→18:04)
[2020-12-15] MEDS: Aspirin 81 MG Tab.EC PO SCH (07:49)
[2020-12-15] MEDS: Dextromethorphan/guaiFENesin 600-30 MG Tab.ER PO SCH ×2 (07:49→18:04)
[2020-12-15] MEDS: Potassium Chloride 20 MEQ Tab.ER PO SCH ×2 (07:50→13:29)
[2020-12-15] MEDS: methylPREDNISolone Sodium Succinate 125 MG/2 ML SDV IVPUSH SCH (07:50)
[2020-12-15] MEDS: Sodium Chloride 0.9% 10 ML Syringe FLUSH PRN ×3 (07:51→08:18)
[2020-12-15] MEDS: Metoprolol Tartrate 25 MG Tab PO SCH (08:10)
[2020-12-15] MEDS: Digoxin 250 MCG Tab PO SCH (08:10)
[2020-12-15] MEDS: Fluticasone Propionate Nasal Spray 16 GM Bottle NASBOTH SCH ×2 (08:16→18:05)
[2020-12-15 08:32] LABS: CHLORIDE,CL 95 mmol/L (98-107); SODIUM,NA 139 mmol/L (136-145)
[2020-12-15] MEDS: Tiotropium Inhaler 18 MCG Inhalation Powder Cap Kit of 5 INH SCH (12:00)
--- NOTE | 2020-12-15 15:59 | PCM.PN ---
- General Info Date of Service: 12/15/20 Admission Dx/Problem (Free Text): Pt. states that she is feeling much improved this AM. She states that she is no longer short of breath at rest. She states that she is short of breath when ambulating. Says she has had chronic worsening of her COPD in general since she had Covid last month. Nursing staff states that she is markedly less dyspneic than she was on admission. Is shaky today which is felt to likely be due to the higher dose SoluMedrol. Clear sputum Functional Status: Reports: Pain Controlled, Tolerating Diet, Ambulating, Urinating, Incentive Spirometry - Review of Systems General: Denies: Fever, Weakness, Fatigue, Malaise, Chills, Night Sweats, Appetite HEENT: Reports: Other (no acute changes) Pulmonary: Reports: Shortness of Breath (chronic. Improved since admission), Cough (chronic), Sputum (clear). Denies: Pleuritic Chest Pain Cardiovascular: Reports: Dyspnea on Exertion (chronic/improved). Denies: Chest Pain, Palpitations, Lightheadedness Gastrointestinal: Denies: Abdominal Pain, Constipation, Diarrhea, Difficulty Swallowing, Nausea, Vomiting Genitourinary: Reports: No Symptoms Musculoskeletal: Reports: Other (no acute changes from baseline) Skin: Reports: No Symptoms Neurological: Reports: Other (no acute changes) Psychiatric: Reports: No Symptoms - Patient Data Vitals - Most Recent: Last Vital Signs Temp 26.5 C L 12/15/20 08:00 Pulse 72 12/15/20 08:10 Resp 18 12/15/20 08:00 BP 103/50 L 12/15/20 08:10 Pulse Ox 95 12/15/20 08:00 Weight - Most Recent: 43.998 kg I&O - Last 24 Hours: Intake & Output 12/15/20 12/15/20 12/15/20 06:59 14:59 22:59 Intake Total 300 240 Output Total 250 300 Balance 50 -60 Lab Results Last 24 Hours: Laboratory Results - last 24 hr 12/15/20 12/15/20 12/15/20 Range/Units 07:40 07:40 07:40 WBC 10.0 (4.0-10.2) K/uL RBC 4.18 (3.77-5.09) M/uL Hgb 12.9 (11.7-15.5) g/dL Hct 42.3 (34.0-46.0) % MCV 101.2 H (84.0-98.0) fL MCH 30.9 (28.2-33.3) pg MCHC 30.5 L (31.7-36.0) g/dL RDW 13.7 (11.2-14.1) % Plt Count 310 (150-350) K/uL Neut % (Auto) 83.8 H (45.0-80.0) % Lymph % (Auto) 6.4 L (10.0-50.0) % Woodson % (Auto) 9.7 (2.0-14.0) % Eos % (Auto) 0.0 (0.0-5.0) % Baso % (Auto) 0.1 (0.0-2.0) % Neut # (Auto) 8.41 H (1.40-7.00) K/uL Lymph # (Auto) 0.64 (0.50-3.50) K/uL Woodson # (Auto) 0.97 (0.00-1.00) K/uL Eos # (Auto) 0.00 (0.00-0.50) K/uL Baso # (Auto) 0.01 (0.00-0.20) K/uL Sodium 139 (136-145) mmol/L Potassium 4.8 (3.5-5.1) mmol/L Chloride 95 L (98-107) mmol/L Carbon Dioxide 45.6 H* (21.0-32.0) mmol/L BUN 31 H (7-18) mg/dL Creatinine 0.72 (0.51-1.17) mg/dL Est Cr Clr Drug Dosing 50.76 mL/min Estimated GFR (MDRD) > 60 mL/min Glucose 116 H (70-99) mg/dL Calcium 9.1 (8.5-10.1) mg/dL Total Bilirubin 0.4 (0.2-1.0) mg/dL AST 16 (15-37) U/L ALT 20 (12-78) U/L Alkaline Phosphatase 51 (46-116) IU/L Total Protein 6.4 (6.4-8.2) g/dL Albumin 3.3 L (3.4-5.0) g/dL Digoxin 1.00 (0.90-2.00) ng/mL Davin Results Last 24 Hours: Microbiology 12/12/20 11:12 Gram Stain - Final Sputum - Expectorated Sputum Culture - Preliminary NORMAL RESPIRATORY ULYSSES 1 DAY 12/12/20 23:02 Aerobic Blood Culture - Preliminary Blood - Venous - Lab Draw NO GROWTH AFTER 2 DAYS Anaerobic Blood Culture - Preliminary NO GROWTH AFTER 2 DAYS 12/12/20 22:55 Aerobic Blood Culture - Preliminary Blood - Venous NO GROWTH AFTER 2 DAYS Anaerobic Blood Culture - Preliminary NO GROWTH AFTER 2 DAYS Med Orders - Current: Current Medications Acetaminophen (Acetaminophen 325 Mg Tab) 650 mg PO Q4H PRN PRN Reason: Pain Last Admin: 12/15/20 02:19 Dose: 650 mg Documented by: Albuterol (Albuterol 0.083% 2.5 Mg/3 Ml Neb Soln) 2.5 mg INH Q2H PRN PRN Reason: SHORTNESS OF BREATH Aspirin (Aspirin 81 Mg Tab.Ec) 81 mg PO DAILY [facility] Last Admin: 12/15/20 07:49 Dose: 81 mg Documented by: Calcium Carbonate/Glycine (Calcium Carbonate 500 Mg Tab.Chew) 1,000 mg PO DAILY [facility] Last Admin: 12/15/20 07:47 Dose: 1,000 mg Documented by: Cetirizine HCl (Cetirizine 10 Mg Tab) 10 mg PO DAILY PRN PRN Reason: Allergies Cholecalciferol (Cholecalciferol (Vitamin D3) 25 Mcg Tab) 50 mcg PO DAILY [facility] Last Admin: 12/15/20 07:48 Dose: 50 mcg Documented by: Digoxin (Digoxin 125 Mcg Tab) 125 mcg PO SuMoWeFr [facility] Last Admin: 12/14/20 00:38 Dose: 125 mcg Documented by: Digoxin (Digoxin 250 Mcg Tab) 250 mcg PO TuThSa [facility] Last Admin: 12/15/20 08:10 Dose: 250 mcg Documented by: Doxycycline Monohydrate (Doxycycline Monohydrate 100 Mg Cap) 100 mg PO BID [facility] Last Admin: 12/15/20 07:49 Dose: 100 mg Documented by: Enoxaparin Sodium (Enoxaparin 40 Mg/0.4 Ml Syringe) 40 mg SUBCUT DAILY [facility] Last Admin: 12/15/20 07:50 Dose: 40 mg Documented by: Fish Oil (Fish Oil/[place]-3 Fatty Acids 1 Gm Cap) 1 gm PO BEDTIME [facility] Last Admin: 12/14/20 19:40 Dose: 1 gm Documented by: Fluticasone Propionate (Fluticasone Propionate Nasal [place] 16 Gm Bottle) 0 gm NASBOTH BID [facility] Last Admin: 12/15/20 08:16 Dose: 1 spray Documented by: Guaifenesin/Dextromethorphan (Dextromethorphan/Guaifenesin 600-30 Mg Tab.Er) 1 tab PO BID [facility] Last Admin: 12/15/20 07:49 Dose: 1 tab Documented by: Heparin Sodium (Porcine) (Heparin Sodium 100 Units/Ml 5 Ml Syringe) 500 units FLUSH ASDIRECTED PRN PRN Reason: Keep Vein Open Last Admin: 12/15/20 08:18 Dose: 500 units Documented by: Levalbuterol HCl (Levalbuterol Hcl 0.63 Mg/3 Ml Neb) 0.63 mg NEB Q6HRRT [facility] Last Admin: 12/15/20 14:57 Dose: 0.63 mg Documented by: Levalbuterol HCl (Levalbuterol Hcl 0.63 Mg/3 Ml Neb) 0.63 mg NEB Q4HRRT PRN PRN Reason: Dyspnea Last Admin: 12/13/20 00:49 Dose: 0.63 mg Documented by: Lisinopril (Lisinopril 5 Mg Tab) 5 mg PO BEDTIME [facility] Last Admin: 12/14/20 19:40 Dose: 5 mg Documented by: Metoprolol Tartrate (Metoprolol Tartrate 25 Mg Tab) 12.5 mg PO DAILY [facility] Last Admin: 12/15/20 08:10 Dose: Not Given Documented by: Miscellaneous Information (Remove Patch) 1 ea TRDERM DAILY@1900 [facility] Last Admin: 12/14/20 18:15 Dose: 1 ea Documented by: Montelukast Sodium (Montelukast 10 Mg Tab) 10 mg PO BEDTIME [facility] Last Admin: 12/14/20 19:40 Dose: 10 mg Documented by: Nicotine (Nicotine 7 Mg/24 Hr Patch) 7 mg TRDERM DAILY@1900 [facility] Last Admin: 12/14/20 18:14 Dose: 7 mg Documented by: Omeprazole (Omeprazole 20 Mg Cap.Cr) 20 mg PO ACBREAKFAST [facility] Last Admin: 12/15/20 07:49 Dose: 20 mg Documented by: Sodium Chloride (Sodium Chloride 0.9% 10 Ml Syringe) 10 ml FLUSH ASDIRECTED PRN PRN Reason: Keep Vein Open Last Admin: 12/15/20 08:18 Dose: 10 ml Documented by: Sodium Chloride (Sodium Chloride 0.9% 10 Ml Syringe) 10 ml FLUSH Q12HR PRN PRN Reason: Keep Vein Open Temazepam (Temazepam 15 Mg Cap) 15 mg PO BEDTIME PRN PRN Reason: Insomnia Theophylline (Theophylline 300 Mg Tab.Er) 300 mg PO BID [facility] Last Admin: 12/15/20 07:48 Dose: 300 mg Documented by: Tiotropium [place] (Tiotropium Inhaler 18 Mcg Inhalation Powder Cap Kit Of 5) 18 mcg INH 1200 [facility] Last Admin: 12/15/20 12:00 Dose: 1 inhalation Documented by: Discontinued Medications Cephalexin (Cephalexin 250 Mg Cap) 500 mg PO TID [facility] Stop: 12/19/20 18:01 Last Admin: 12/14/20 07:46 Dose: 500 mg Documented by: Digoxin (Digoxin 250 Mcg Tab) 250 mcg PO TuThSa [facility] Last Admin: 12/13/20 01:45 Dose: Not Given Documented by: Enoxaparin Sodium (Enoxaparin 40 Mg/0.4 Ml Syringe) 40 mg SUBCUT Q24H [facility] Last Admin: 12/15/20 06:48 Dose: Not Given Documented by: Furosemide (Furosemide 40 Mg/4 Ml Vial) 40 mg IVPUSH Q8H [facility] Last Admin: 12/13/20 15:56 Dose: 40 mg Documented by: Furosemide (Furosemide 40 Mg/4 Ml Vial) 40 mg IVPUSH Q8H [facility] Last Admin: 12/14/20 07:50 Dose: 40 mg Documented by: Heparin Sodium (Porcine) (Heparin Sodium 100 Units/Ml 5 Ml Syringe) 500 units FLUSH Q30D [facility] Last Admin: 12/13/20 07:52 Dose: 500 units Documented by: Lisinopril (Lisinopril 10 Mg Tab) 10 mg PO QPM [facility] Last Admin: 12/13/20 17:03 Dose: Not Given Documented by: Methylprednisolone Sodium Succinate (Methylprednisolone Sodium Succinate 125 Mg/2 Ml Sdv) 125 mg IVPUSH Q12H [facility] Last Admin: 12/13/20 10:56 Dose: 125 mg Documented by: Methylprednisolone Sodium Succinate (Methylprednisolone Sodium Succinate 125 Mg/2 Ml Sdv) 125 mg IVPUSH Q12HR [facility] Last Admin: 12/15/20 07:50 Dose: 125 mg Documented by: Nicotine (Nicotine 7 Mg/24 Hr Patch) 7 mg TRDERM DAILY [facility] Potassium Chloride (Potassium Chloride 20 Meq Tab.Er) 20 meq PO TID [facility] Last Admin: 12/15/20 13:29 Dose: Not Given Documented by: - Exam Quality Assessment: Supplemental Oxygen, DVT Prophylaxis Central Line Total Time: 2Days 10Hours General: Alert, Oriented HEENT: Pupils Equal, Pupils Reactive, EOMI, Mucous Membr. Moist/[place] Neck: Supple Lungs: Clear to Auscultation, Decreased Breath Sounds, Other (Poor volume on inspiration). No: Crackles, Rales, Rhonchi, Rub, Stridor Cardiovascular: Regular Rate, Regular Rhythm GI/Abdominal Exam: Soft, Non-Tender Back Exam: No: Muscle Spasm, Paraspinal Tenderness, Vertebral Tenderness Extremities: Non-Tender, Normal Capillary Refill Skin: Warm, Dry Neurological: No New Focal Deficit Psy/Mental Status: Alert, Normal Affect, Normal Mood - Patient Data Lab Results Last 24 hrs: Laboratory Results - last 24 hr 12/15/20 12/15/20 12/15/20 Range/Units 07:40 07:40 07:40 WBC 10.0 (4.0-10.2) K/uL RBC 4.18 (3.77-5.09) M/uL Hgb 12.9 (11.7-15.5) g/dL Hct 42.3 (34.0-46.0) % MCV 101.2 H (84.0-98.0) fL MCH 30.9 (28.2-33.3) pg MCHC 30.5 L (31.7-36.0) g/dL RDW 13.7 (11.2-14.1) % Plt Count 310 (150-350) K/uL Neut % (Auto) 83.8 H (45.0-80.0) % Lymph % (Auto) 6.4 L (10.0-50.0) % Woodson % (Auto) 9.7 (2.0-14.0) % Eos % (Auto) 0.0 (0.0-5.0) % Baso % (Auto) 0.1 (0.0-2.0) % Neut # (Auto) 8.41 H (1.40-7.00) K/uL Lymph # (Auto) 0.64 (0.50-3.50) K/uL [place]son # (Auto) 0.97 (0.00-1.00) K/uL Eos # (Auto) 0.00 (0.00-0.50) K/uL Baso # (Auto) 0.01 (0.00-0.20) K/uL Sodium 139 (136-145) mmol/L Potassium 4.8 (3.5-5.1) mmol/L Chloride 95 L (98-107) mmol/L Carbon Dioxide 45.6 H* (21.0-32.0) mmol/L BUN 31 H (7-18) mg/dL Creatinine 0.72 (0.51-1.17) mg/dL Est Cr Clr Drug Dosing 50.76 mL/min Estimated GFR (MDRD) > 60 mL/min Glucose 116 H (70-99) mg/dL Calcium 9.1 (8.5-10.1) mg/dL Total Bilirubin 0.4 (0.2-1.0) mg/dL AST 16 (15-37) U/L ALT 20 (12-78) U/L Alkaline Phosphatase 51 (46-116) IU/L Total Protein 6.4 (6.4-8.2) g/dL Albumin 3.3 L (3.4-5.0) g/dL Digoxin 1.00 (0.90-2.00) ng/mL Result Diagrams: 12/15/20 07:40 12/15/20 07:40 Davin Results Last 24 hrs: Microbiology 12/12/20 11:12 Gram Stain - Final Sputum - Expectorated Sputum Culture - Preliminary NORMAL RESPIRATORY ULYSSES 1 DAY 12/12/20 23:02 Aerobic Blood Culture - Preliminary Blood - Venous - Lab Draw NO GROWTH AFTER 2 DAYS Anaerobic Blood Culture - Preliminary NO GROWTH AFTER 2 DAYS 12/12/20 22:55 Aerobic Blood Culture - Preliminary Blood - Venous NO GROWTH AFTER 2 DAYS Anaerobic Blood Culture - Preliminary NO GROWTH AFTER 2 DAYS Sepsis Event Note - Evaluation Sepsis Screening Result: No Definite Risk - Focused Exam Vital Signs: Vital Signs Temp Pulse Pulse Resp BP BP Pulse Ox 12/15/20 08:10 72 103/50 L 12/15/20 08:00 26.5 C L 72 18 103/50 L 95 - Problem List & Annotations (1) COPD (chronic obstructive pulmonary disease) SNOMED Code(s): 42917300 Code(s): J44.9 - CHRONIC OBSTRUCTIVE PULMONARY DISEASE, UNSPECIFIED Status: Chronic Priority: Medium Current Visit: Yes Qualifiers: COPD type: emphysema Emphysema type: panlobular Qualified Code(s): J43.1 - Panlobular emphysema Annotation/Comment:: Patient feels improved. No pneumonia or bronchitis based on chest x-ray. Note O2 dependent COPD. Back to her baseline 2 L/min level today. Switched to Doxy coverage. Continue aggressive nebulizer therapy, Mucinex DM, and incentive spirometry with the patient encouraged to use her nebulizer treatments and Mucinex DM on a regular long-term basis rather than as needed as before. Sputum specimen unremarkable. IV Solu-Medrol will be discontinued after AM dose time due to patient's increased shakiness. Blood cultures x2 were collected/unremarkable with no leukocytosis, fever, etc. Note normal lactic acid level on admission. Additional history of sleep apnea with the patient not able to tolerate her CPAP. She did have a pulmonology appointment scheduled for 12/14, which she has rescheduled. Note history of recent Covid on 10/18/2020 with incomplete immunization as per emergency room note. (2) CHF (congestive heart failure) SNOMED Code(s): 97596304 Code(s): I50.9 - HEART FAILURE, UNSPECIFIED Status: Acute Priority: High Current Visit: Yes Onset Date: 12/12/20 Qualifiers: Heart failure type: unspecified Heart failure chronicity: acute Qualified Code(s): I50.9 - Heart failure, unspecified Annotation/Comment:: Patient initially received Lasix to cover for any CHF contribution to presenting complaints. Discontinued at this time. No evidence of significant fluid overload on exam/chest xray. Glycosylated hemoglobin normal at 5.6% with mildly elevated lipid profile, which will be observed for now secondary to her cachexia. Patient was started on Lisinpril but given her lower BPs that have been noted that will be discontinued for now. (3) Hypoalbuminemia SNOMED Code(s): 260154421 Code(s): E88.09 - [facility] DISORDERS OF PLASMA-PROTEIN METABOLISM, NEC Status: Acute Priority: Medium Current Visit: Yes Onset Date: 12/13/20 Annotation/Comment:: Observe for now. Consider high-protein Glucerna supplements. (4) PVCs (premature ventricular contractions) SNOMED Code(s): 35181286 Code(s): I49.3 - VENTRICULAR PREMATURE DEPOLARIZATION Status: Acute Priority: Medium Current Visit: Yes Onset Date: 12/12/20 Annotation/Comment:: Newly diagnosed. Nonsymptomatic. Note previous history of PSVT with current subtherapeutic random digoxin level with change of her digoxin to an a.m. basis as above. (5) Cachexia SNOMED Code(s): 984956123 Code(s): R64 - CACHEXIA Status: Chronic Priority: Medium Current Visit: Yes Annotation/Comment:: Likely secondary to her O2 dependent COPD. Note previous history of distant breast cancer. Continue to observe closely. (6) Macrocytosis SNOMED Code(s): 840698374 Code(s): D75.89 - OTHER SPECIFIED DISEASES OF BLOOD AND BLOOD-FORMING ORGANS Status: Chronic Priority: Medium Current Visit: Yes Annotation/Comment:: Vitamin B12 and folic acid levels are normal. TIBC panel and ferritin levels overall unremarkable. (7) Osteoarthritis SNOMED Code(s): 178552286 Code(s): M19.90 - UNSPECIFIED OSTEOARTHRITIS, UNSPECIFIED SITE Status: Chronic Priority: Medium Current Visit: Yes Qualifiers: Osteoarthritis location: multiple joints Osteoarthritis type: primary Qualified Code(s): M89.49 - Other hypertrophic osteoarthropathy, multiple sites Annotation/Comment:: Stable by history chronic midthoracic back pain with additional history of rheumatoid arthritis and osteoporosis. (8) Shortened OR interval SNOMED Code(s): 87432526 Code(s): R94.31 - ABNORMAL ELECTROCARDIOGRAM [ECG] [EKG] Status: Chronic Current Visit: Yes Onset Date: 02/18/20 Annotation/Comment:: Observe for now. (9) Tobacco abuse counseling SNOMED Code(s): 213281562, 149489632, 863420170 Code(s): Z71.6 - TOBACCO ABUSE COUNSELING Status: Chronic Priority: Medium Current Visit: Yes Annotation/Comment:: Tobacco cessation strongly encouraged with tobacco cessation information to be provided at discharge. - Problem List Review Problem List Initiated/Reviewed/Updated: Yes - Assessment Assessment:: As above - Plan Plan:: Pt. was changed from keflex to doxycycline for COPD exacerbation. Pt. had been on keflex for sinusitis. The doxycycline is a better option for both COPD exacerbation as well as sinusitis. Dig level is therapeutic today. Lasix was stopped. Chest x-ray did not indicate any evidence of CHF. She has no crackles or peripheral edema. She complains of lightheadedness and is or thostatic when standing. Continue xopenex breathing treatments. Ambulation encouraged. Back to usual baseline 2L O2 via [place]. [place] today, suspect combination of nebs and Solumedrol contributing to this. Solumedrol has been discontinued. Lisinopril discontinued. Plan at this time is probable discharge tomorrow morning if she continues to do well. Prescriptions for doxycycline and prednisone were sent to the pharmacy and picked up by , as the pharmacies are closed for the weekend/ holiday.
[2020-12-15] MEDS: Nicotine 7 MG/24 Hr Patch TRDERM SCH (18:05)
[2020-12-15] MEDS: Montelukast 10 MG Tab PO SCH (20:20)
[2020-12-15] MEDS: Fish Oil/Omega-3 Fatty Acids 1 Gm Cap PO SCH (20:20)
[2020-12-16] MEDS: Levalbuterol HCl 0.63 MG/3 ML Neb NEB SCH ×2 (02:03→08:27)
[2020-12-16] MEDS: Digoxin 125 MCG Tab PO SCH (02:32)
[2020-12-16] MEDS ORDERED: Digoxin 125 MCG Tab PO SCH (08:00)
[2020-12-16 08:04] VITALS: BP 112/59; PULSE 108
[2020-12-16] MEDS: Fluticasone Propionate Nasal Spray 16 GM Bottle NASBOTH SCH (08:24)
[2020-12-16] MEDS: Calcium Carbonate 500 MG Tab.Chew PO SCH (08:25)
[2020-12-16] MEDS: Dextromethorphan/guaiFENesin 600-30 MG Tab.ER PO SCH (08:25)
[2020-12-16] MEDS: Aspirin 81 MG Tab.EC PO SCH (08:26)
[2020-12-16] MEDS: Theophylline 300 MG Tab.ER PO SCH (08:26)
[2020-12-16] MEDS: Cholecalciferol (Vitamin D3) 25 MCG Tab PO SCH (08:26)
[2020-12-16] MEDS: Omeprazole 20 MG Cap.CR PO SCH (08:27)
[2020-12-16] MEDS: Doxycycline Monohydrate 100 MG Cap PO SCH (08:27)
[2020-12-16] MEDS: Metoprolol Tartrate 25 MG Tab PO SCH (08:28)
[2020-12-16] MEDS: Sodium Chloride 0.9% 10 ML Syringe FLUSH PRN (08:29)
[2020-12-16] MEDS: Enoxaparin 40 MG/0.4 ML Syringe SUBCUT SCH (08:29)
[2020-12-16] MEDS: Acetaminophen 325 MG Tab PO PRN (08:41)
[2020-12-16] MEDS: Tiotropium Inhaler 18 MCG Inhalation Powder Cap Kit of 5 INH SCH (12:12)
--- NOTE | 2020-12-16 14:06 | PCM.DCSUM1 ---
Discharge Summary - Hospital Course Diagnosis: Stroke: No - Discharge Data Discharge Date: 12/16/20 Discharge Disposition: Home, Self-Care 01 Condition: Fair - Referral to Home Health Primary Care Physician: PCP Unknown - Discharge Diagnosis/Problem(s) (1) COPD (chronic obstructive pulmonary disease) SNOMED Code(s): 04640071 ICD Code: J44.9 - CHRONIC OBSTRUCTIVE PULMONARY DISEASE, UNSPECIFIED Status: Chronic Priority: Medium Current Visit: Yes Problem Details: Patient feels improved. No pneumonia or bronchitis based on chest x-ray. Note O2 dependent COPD. Back to her baseline 2 L/min level yesterday. Switched to Doxy coverage Patient encouraged to use her nebulizer treatments and Mucinex DM on a regular long-term basis rather than as needed as before. Sputum specimen unremarkable. IV Solu-Medrol discontinued yesterday due to patient's increased shakiness. Blood cultures x2 were collected/unremarkable with no leukocytosis, fever, etc. Note normal lactic acid level on admission. Additional history of sleep apnea with the patient not able to tolerate her CPAP. She did have a pulmonology appointment scheduled for 12/14, which she has rescheduled. Note history of recent Covid on 10/18/2020 with incomplete immunization as per emergency room note. Qualifiers: COPD type: emphysema Emphysema type: panlobular Qualified Code(s): J43.1 - Panlobular emphysema (2) CHF (congestive heart failure) SNOMED Code(s): 82647418 ICD Code: I50.9 - HEART FAILURE, UNSPECIFIED Status: Acute Priority: High Current Visit: Yes Onset Date: 12/12/20 Problem Details: Patient initially received Lasix to cover for any CHF contribution to presenting complaints. Discontinued at this time. No evidence of significant fluid overload on exam/chest xray. Glycosylated hemoglobin normal at 5.6% with mildly elevated lipid profile, which will be observed for now secondary to her cachexia. Patient was started on Lisinpril but given her lower BPs that have been noted that will be discontinued for now. Qualifiers: Heart failure type: unspecified Heart failure chronicity: acute Qualified Code(s): I50.9 - Heart failure, unspecified (3) Tachycardia SNOMED Code(s): 4611460 ICD Code: R00.0 - TACHYCARDIA, UNSPECIFIED Status: Chronic Priority: Medium Current Visit: Yes Problem Details: Patient has history of elevated heart rate with activity. Noted to get up to 120-130 when up to bathroom/ambulating etc. No diagnosis of POTS. To follow up with PCP /Cardiology. (4) Hypoalbuminemia SNOMED Code(s): 521825128 ICD Code: E88.09 - OTH DISORDERS OF PLASMA-PROTEIN METABOLISM, NEC Status: Acute Priority: Medium Current Visit: Yes Onset Date: 12/13/20 Problem D etails: Observe for now. Consider high-protein Glucerna supplements. (5) PVCs (premature ventricular contractions) SNOMED Code(s): 06594761 ICD Code: I49.3 - VENTRICULAR PREMATURE DEPOLARIZATION Status: Acute Priority: Medium Current Visit: Yes Onset Date: 12/12/20 Problem Details: Newly diagnosed. Nonsymptomatic. Note previous history of PSVT with current subtherapeutic random digoxin level with change of her digoxin to an a.m. basis as above. (6) Cachexia SNOMED Code(s): 251962478 ICD Code: R64 - CACHEXIA Status: Chronic Priority: Medium Current Visit: Yes Problem Details: Likely secondary to her O2 dependent COPD. Note previous history of distant breast cancer. Continue to observe closely. (7) Macrocytosis SNOMED Code(s): 432962287 ICD Code: D75.89 - OTHER SPECIFIED DISEASES OF BLOOD AND BLOOD-FORMING ORGANS Status: Chronic Priority: Medium Current Visit: Yes Problem Details: Vitamin B12 and folic acid levels are normal. TIBC panel and ferritin levels overall unremarkable. (8) Osteoarthritis SNOMED Code(s): 632281438 ICD Code: M19.90 - UNSPECIFIED OSTEOARTHRITIS, UNSPECIFIED SITE Status: Chronic Priority: Medium Current Visit: Yes Problem Details: Stable by history chronic midthoracic back pain with additional history of rheumatoid arthritis and osteoporosis. Qualifiers: Osteoarthritis location: multiple joints Osteoarthritis type: primary Jude lified Code(s): M89.49 - Other hypertrophic osteoarthropathy, multiple sites (9) Shortened [place] interval SNOMED Code(s): 12324481 ICD Code: R94.31 - ABNORMAL ELECTROCARDIOGRAM [ECG] [EKG] Status: Chronic Current Visit: Yes Onset Date: 02/18/20 Problem Details: Observe for now. (10) Tobacco abuse counseling SNOMED Code(s): 121773774, 053321512, 268569568 ICD Code: Z71.6 - TOBACCO ABUSE COUNSELING Status: Chronic Priority: Medium Current Visit: Yes Problem Details: Tobacco cessation strongly encouraged with tobacco cessation information to be provided at discharge. - Patient Summary/Data Hospital Course: Patient's complaint of increased SOB improved with Solu-Medrol and above interventions. Dig level is now therapeutic. Patient is back to usual O2 via NC at 2L. Less shaky today since Solu-Medrol discontinued yesterday. BPs improved once Lisinopril discontinued. She feels ready to go home. Will be continued on Doxy. Close follow up with PCP next week and with Pulmonology plan elbert. Patient is not interested in quitting smoking at this time but was encouraged to do so during her stay. - Patient Instructions Diet: Usual Diet as Tolerated Fluid Restriction: 2000 mL Activity: As Tolerated Showering/Bathing: May Shower Other/Special Instructions: Follow up at clinic for recheck next week. Return to ER if you have problems/concerns. Follow up soonest available appointment with Pulmonary medicine. Consider taking digoxin in the morning vs night/discuss with your primary provider. Take the Doxy and Prednisone taper as prescribed. - Discharge Plan *PRESCRIPTION DRUG MONITORING PROGRAM REVIEWED*: Not Applicable *COPY OF PRESCRIPTION DRUG MONITORING REPORT IN PATIENT JIMMIE: Not Applicable Home Medications: Home Meds Acetaminophen [Tylenol Extra Strength] 1,000 mg PO Q4H PRN 03/26/17 [History] Albuterol [IJD: Ventolin HFA] 2 puff INH Q4H PRN 03/26/17 [History] Aspirin [Halfprin] 81 mg PO DAILY 03/26/17 [History] Calcium Carbonate [Calcium] 1,000 mg PO DAILY 03/26/17 [History] Cholecalciferol (Vitamin D3) [Vitamin D3] 2,000 unit PO DAILY 03/26/17 [History] Denosumab [Prolia] 60 mg SUBCUT Q180D 03/26/17 [History] Fish Oil/[place]-3 Fatty Acids [Fish Oil 1,000 MG] 1,000 mg PO BEDTIME 03/26/17 [History] Fluticasone Propionate [Flonase] 1 spray NASBOTH BID 03/26/17 [History] Hydrocodone/Acetaminophen [[place] 5-325] 1 tab PO BID PRN 03/26/17 [History] Levalbuterol HCl [Xopenex] 0.63 mg NEB Q4HRRT PRN 03/26/17 [History] Metoprolol Tartrate [Lopressor] 12.5 mg PO DAILY 03/26/17 [History] Montelukast [Singulair] 10 mg PO BEDTIME 03/26/17 [History] Mupirocin Oint [Bactroban Oint] 22 gm TOP TID PRN 03/26/17 [History] Omeprazole 20 mg PO ACBREAKFAST 03/26/17 [History] Theophylline [Theophylline Anhydrous] 300 mg PO BID 03/26/17 [History] Ubidecarenone [Coenzyme Q-10] 50 mg PO BEDTIME 03/26/17 [History] Vitamin E 400 unit PO BEDTIME 03/26/17 [History] diphenhydrAMINE HCL [Benadryl] 25 mg PO QID PRN 03/26/17 [History] Budesonide [Pulmicort] 0.5 mg IH BID 03/28/20 [History] Tiotropium [Spiriva HandiHaler] 18 mcg INH 1200 03/28/20 [History] Ascorbate Calcium [Vitamin C] 1,000 mg PO DAILY 10/17/20 [History] Cetirizine [ZyrTEC] 10 mg PO DAILY PRN 10/17/20 [History] Mepolizumab [Nucala] 100 mg SQ Q28D 10/17/20 [History] 0.9 % Sodium Chloride [Sodium Chloride] 3 ml IH BID PRN 11/15/20 [History] Heparin Sodium,Porcine/PF [Heparin IV Flush 100 Units/ml] 500 unit IV Q30D 11/15/20 [History] predniSONE [Prednisone] 2 tab PO DAILY 12/12/20 [History] Dextromethorphan/guaiFENesin [Mucinex DM ER 600-30 MG] 1 tab PO BID tab.er 12/16/20 [Rx] Digoxin [Digox] 125 mcg PO Q2D@0800 #0 12/16/20 [Rx] Doxycycline Monohydrate 100 mg PO BID cap 12/16/20 [Rx] Oxygen Therapy Mode: Nasal Cannula Patient Handouts: Doxycycline tablets or capsules Forms: ED Department Discharge Referrals: PCP,Unknown [Primary Care Provider] - - Discharge Summary/Plan Comment DC Time >30 min.: No - General Info Date of Service: 12/16/20 Admission Dx/Problem (Free Text: Pt. states that she is feeling much improved this AM. She states that she is no longer short of breath at rest. She states that she is short of breath when ambulating. Says she has had chronic worsening of her COPD in general since she had Covid last month. Nursing staff states that she is markedly less dyspneic than she was on admission. Is shaky today which is felt to likely be due to the higher dose SoluMedrol. Clear sputum Subjective Update: Patient feels back to baseline overall. Less shaky today. No new complaints. Functional Status: Reports: Pain Controlled, Tolerating Diet, Ambulating, Urinating, Incentive Spirometry. Denies: New Symptoms - Review of Systems General: Denies: Fever, Malaise, Chills, Night Sweats HEENT: Reports: Other (no acute changes) Pulmonary: Reports: Shortness of Breath (chronic), Cough (chronic), Sputum (clear). Denies: Pleuritic Chest Pain, Hemoptysis, Wheezing Cardiovascular: Reports: Dyspnea on Exertion (chronic). Denies: Chest Pain, Palpitations, Edema, Lightheadedness Gastrointestinal: Reports: No Symptoms Genitourinary: Reports: No Symptoms Musculoskeletal: Reports: Other (no acute changes from baseline) Skin: Reports: No Symptoms Neurological: Reports: Other (no acute changes). Denies: Confusion, Dizziness, Headache, Change in Speech Psychiatric: Reports: No Symptoms - Patient Data Vitals - Most Recent: Last Vital Signs Temp 36.6 C 12/16/20 08:00 Pulse 108 H 12/16/20 08:28 Resp 18 12/16/20 08:00 BP 112/59 L 12/16/20 08:28 Pulse Ox 92 L 12/16/20 08:00 Weight - Most Recent: 44.271 kg I&O - Last 24 hours: Intake & Output 12/15/20 12/16/20 12/16/20 22:59 06:59 14:59 Intake Total 520 240 Output Total 200 200 Balance 320 40 Lab Results - Last 24 hrs: Laboratory Results - last 24 hr 12/15/20 Range/Units 07:40 Digoxin 1.00 (0.90-2.00) ng/mL BENJAMIN Results - Last 24 hrs: Microbiology 12/12/20 11:12 Gram Stain - Final Sputum - Expectorated Sputum Culture - Final NORMAL RESPIRATORY ULYSSES 2 DAYS 12/12/20 23:02 Aerobic Blood Culture - Preliminary Blood - Venous - Lab Draw NO GROWTH AFTER 3 DAYS Anaerobic Blood Culture - Preliminary NO GROWTH AFTER 3 DAYS 12/12/20 22:55 Aerobic Blood Culture - Preliminary Blood - Venous NO GROWTH AFTER 3 DAYS Anaerobic Blood Culture - Preliminary NO GROWTH AFTER 3 DAYS Med Orders - Current: Current Medications Acetaminophen (Acetaminophen 325 Mg Tab) 650 mg PO Q4H PRN PRN Reason: Pain Last Admin: 12/16/20 08:41 Dose: 650 mg Documented by: Albuterol (Albuterol 0.083% 2.5 Mg/3 Ml Neb Soln) 2.5 mg INH Q2H PRN PRN Reason: SHORTNESS OF BREATH Aspirin (Aspirin 81 Mg Tab.Ec) 81 mg PO DAILY [facility] Last Admin: 12/16/20 08:26 Dose: 81 mg Documented by: Calcium Carbonate/Glycine (Calcium Carbonate 500 Mg Tab.Chew) 1,000 mg PO DAILY [facility] Last Admin: 12/16/20 08:25 Dose: 1,000 mg Documented by: Cetirizine HCl (Cetirizine 10 Mg Tab) 10 mg PO DAILY PRN PRN Reason: Allergies Cholecalciferol (Cholecalciferol (Vitamin D3) 25 Mcg Tab) 50 mcg PO DAILY [facility] Last Admin: 12/16/20 08:26 Dose: 50 mcg Documented by: Digoxin (Digoxin 250 Mcg Tab) 250 mcg PO TuThSa [facility] Last Admin: 12/15/20 08:10 Dose: 250 mcg Documented by: Digoxin (Digoxin 125 Mcg Tab) 125 mcg PO SuMoWeFr [facility] Last Admin: 12/16/20 08:27 Dose: 125 mcg Documented by: Doxycycline Monohydrate (Doxycycline Monohydrate 100 Mg Cap) 100 mg PO BID [facility] Last Admin: 12/16/20 08:27 Dose: 100 mg Documented by: Enoxaparin Sodium (Enoxaparin 40 Mg/0.4 Ml Syringe) 40 mg SUBCUT DAILY [facility] Last Admin: 12/16/20 08:29 Dose: 40 mg Documented by: Fish Oil (Fish Oil/[place]-3 Fatty Acids 1 Gm Cap) 1 gm PO BEDTIME [facility] Last Admin: 12/15/20 20:20 Dose: 1 gm Documented by: Fluticasone Propionate (Fluticasone Propionate Nasal [place] 16 Gm Bottle) 0 gm NASBOTH BID [facility] Last Admin: 12/16/20 08:24 Dose: 1 spray Documented by: Guaifenesin/Dextromethorphan (Dextromethorphan/Guaifenesin 600-30 Mg Tab.Er) 1 tab PO BID [facility] Last Admin: 12/16/20 08:25 Dose: 1 tab Documented by: Heparin Sodium (Porcine) (Heparin Sodium 100 Units/Ml 5 Ml Syringe) 500 units FLUSH ASDIRECTED PRN PRN Reason: Keep Vein Open Last Admin: 12/16/20 08:30 Dose: 500 units Documented by: Levalbuterol HCl (Levalbuterol Hcl 0.63 Mg/3 Ml Neb) 0.63 mg NEB Q6HRRT [facility] Last Admin: 12/16/20 08:27 Dose: 0.63 mg Documented by: Levalbuterol HCl (Levalbuterol Hcl 0.63 Mg/3 Ml Neb) 0.63 mg NEB Q4HRRT PRN PRN Reason: Dyspnea Last Admin: 12/13/20 00:49 Dose: 0.63 mg Documented by: Metoprolol Tartrate (Metoprolol Tartrate 25 Mg Tab) 12.5 mg PO DAILY [facility] Last Admin: 12/16/20 08:28 Dose: 12.5 mg Documented by: Miscellaneous Information (Remove Patch) 1 ea TRDERM DAILY@1900 [facility] Last Admin: 12/15/20 18:06 Dose: 1 ea Documented by: Montelukast Sodium (Montelukast 10 Mg Tab) 10 mg PO BEDTIME [facility] Last Admin: 12/15/20 20:20 Dose: 10 mg Documented by: Nicotine (Nicotine 7 Mg/24 Hr Patch) 7 mg TRDERM DAILY@1900 [facility] Last Admin: 12/15/20 18:05 Dose: 7 mg Documented by: Omeprazole (Omeprazole 20 Mg Cap.Cr) 20 mg PO ACBREAKFAST [facility] Last Admin: 12/16/20 08:27 Dose: 20 mg Documented by: Sodium Chloride (Sodium Chloride 0.9% 10 Ml Syringe) 10 ml FLUSH ASDIRECTED PRN PRN Reason: Keep Vein Open Last Admin: 12/16/20 08:29 Dose: 10 ml Documented by: Sodium Chloride (Sodium Chloride 0.9% 10 Ml Syringe) 10 ml FLUSH Q12HR PRN PRN Reason: Keep Vein Open Temazepam (Temazepam 15 Mg Cap) 15 mg PO BEDTIME PRN PRN Reason: Insomnia Theophylline (Theophylline 300 Mg Tab.Er) 300 mg PO BID [facility] Last Admin: 12/16/20 08:26 Dose: 300 mg Documented by: Tiotropium [place] (Tiotropium Inhaler 18 Mcg Inhalation Powder Cap Kit Of 5) 18 mcg INH 1200 [facility] Last Admin: 12/16/20 12:12 Dose: 1 inhalation Documented by: Discontinued Medications Cephalexin (Cephalexin 250 Mg Cap) 500 mg PO TID [facility] Stop: 12/19/20 18:01 Last Admin: 12/14/20 07:46 Dose: 500 mg Documented by: Digoxin (Digoxin 125 Mcg Tab) 125 mcg PO SuMoWeFr [facility] Last Admin: 12/16/20 02:32 Dose: Not Given Documented by: Digoxin (Digoxin 250 Mcg Tab) 250 mcg PO TuThSa [facility] Last Admin: 12/13/20 01:45 Dose: Not Given Documented by: Enoxaparin Sodium (Enoxaparin 40 Mg/0.4 Ml Syringe) 40 mg SUBCUT Q24H [facility] Last Admin: 12/15/20 06:48 Dose: Not Given Documented by: Furosemide (Furosemide 40 Mg/4 Ml Vial) 40 mg IVPUSH Q8H [facility] Last Admin: 12/13/20 15:56 Dose: 40 mg Documented by: Furosemide (Furosemide 40 Mg/4 Ml Vial) 40 mg IVPUSH Q8H [facility] Last Admin: 12/14/20 07:50 Dose: 40 mg Documented by: Heparin Sodium (Porcine) (Heparin Sodium 100 Units/Ml 5 Ml Syringe) 500 units FLUSH Q30D [facility] Last Admin: 12/13/20 07:52 Dose: 500 units Documented by: Lisinopril (Lisinopril 10 Mg Tab) 10 mg PO QPM [facility] Last Admin: 12/13/20 17:03 Dose: Not Given Documented by: Lisinopril (Lisinopril 5 Mg Tab) 5 mg PO BEDTIME [facility] Last Admin: 12/14/20 19:40 Dose: 5 mg Documented by: Methylprednisolone Sodium Succinate (Methylprednisolone Sodium Succinate 125 Mg/2 Ml Sdv) 125 mg IVPUSH Q12H [facility] Last Admin: 12/13/20 10:56 Dose: 125 mg Documented by: Methylprednisolone Sodium Succinate (Methylprednisolone Sodium Succinate 125 Mg/2 Ml Sdv) 125 mg IVPUSH Q12HR [facility] Last Admin: 12/15/20 07:50 Dose: 125 mg Documented by: Nicotine (Nicotine 7 Mg/24 Hr Patch) 7 mg TRDERM DAILY [facility] Potassium Chloride (Potassium Chloride 20 Meq Tab.Er) 20 meq PO TID [facility] Last Admin: 12/15/20 13:29 Dose: Not Given Documented by: - Exam Quality Assessment: Reports: Supplemental Oxygen General: Reports: Alert, Oriented, Cooperative, No Acute Distress HEENT: Reports: Pupils Equal, Pupils Reactive, EOMI, Mucous Membr. Moist/[place]ck: Reports: Supple Lungs: Reports: Decreased Breath Sounds (bilaterally/unable to take deep breath). Denies: Stridor, Wheezing Cardiovascular: Reports: Regular Rate, Regular Rhythm GI/Abdominal Exam: Soft (Female) Exam: Deferred Rectal (Female) Exam: Deferred Back Exam: Denies: Muscle Spasm Extremities: Other (no acute changes/moves all four limbs equally) Skin: Reports: Warm, Dry Neurological: Reports: No New Focal Deficit Psy/Mental Status: Reports: Alert, Normal Affect, Normal Mood
== END 2020-12-16 14:00 | disposition home or self-care (01) | DRG 191 ==
LOC: LL.ED 22:08 → LL.MS 12-13 00:17
PROVIDERS: ADMIT Family Medicine; ATTEND Family Medicine
DX: J43.1 Panlobular emphysema (principal); I47.1 Supraventricular tachycardia; R64 Cachexia; Z68.1 Body mass index [BMI] 19.9 or less, adult; I50.9 Heart failure, unspecified; I49.3 Ventricular premature depolarization; D75.89 Other specified diseases of blood and blood-forming organs; E88.09 Other disorders of plasma-protein metabolism, not elsewhere classified; M89.49 Other hypertrophic osteoarthropathy, multiple sites; H54.7 Unspecified visual loss; E78.00 Pure hypercholesterolemia, unspecified; K59.09 Other constipation; K21.9 Gastro-esophageal reflux disease without esophagitis; Z88.0 Allergy status to penicillin; K80.20 Calculus of gallbladder without cholecystitis without obstruction; K58.9 Irritable bowel syndrome, unspecified; M54.9 Dorsalgia, unspecified; Z91.048 Other nonmedicinal substance allergy status; G89.29 Other chronic pain; Z79.51 Long term (current) use of inhaled steroids; M81.0 Age-related osteoporosis without current pathological fracture; G47.30 Sleep apnea, unspecified; G62.9 Polyneuropathy, unspecified; F17.210 Nicotine dependence, cigarettes, uncomplicated; J32.9 Chronic sinusitis, unspecified; R94.31 Abnormal electrocardiogram [ECG] [EKG]; Z71.6 Tobacco abuse counseling; Z85.3 Personal history of malignant neoplasm of breast; Z91.018 Allergy to other foods; Z91.030 Bee allergy status; Z88.5 Allergy status to narcotic agent; Z91.012 Allergy to eggs; Z91.041 Radiographic dye allergy status; Z88.1 Allergy status to other antibiotic agents; Z88.8 Allergy status to other drugs, medicaments and biological substances; Z91.013 Allergy to seafood; Z88.2 Allergy status to sulfonamides; Z91.09 Other allergy status, other than to drugs and biological substances; Z79.82 Long term (current) use of aspirin; Z79.899 Other long term (current) drug therapy; Z79.52 Long term (current) use of systemic steroids; Z87.01 Personal history of pneumonia (recurrent); Z99.81 Dependence on supplemental oxygen; Z87.442 Personal history of urinary calculi; Z90.49 Acquired absence of other specified parts of digestive tract; Z86.16 Personal history of COVID-19
CPT/HCPCS: 36415; 71046; 80048; 80053; 80061; 80162; 82550; 82553; 82607; 82728; 82746; 83036; 83540; 83550; 83605; 83735; 83880; 84443; 84484; 85025; 85379; 85610; 85730; 87040; 87070; 87205; 93005; 94640; 99223; 99231; 99232; 99238; 99284-25; A9270-GY; J1642; J1650; J1940; J2930

== ENCOUNTER 2021-03-16 15:22 | Emergency (ER) | payer MEDICARE, BC ==
[2021-03-16] MEDS ORDERED: Sodium Chloride 0.9% 10 ML Syringe FLUSH PRN (15:40)
--- NOTE | 2021-03-16 15:53 | EDM.PDOC ---
ED HPI GENERAL MEDICAL PROBLEM - General Chief Complaint: Respiratory Problem Stated Complaint: Shortness of Breath Time Seen by Provider: 03/16/21 15:35 Source of Information: Reports: Patient History Limitations: Reports: No Limitations - History of Present Illness INITIAL COMMENTS - FREE TEXT/NARRATIVE: She presents to the emergency department with complaints of shortness of breath. She has known history of COPD on 2 L of oxygen at home. She has had increasing shortness of breath for the past several days. She was seen 8 days ago in clinic for upper respiratory infection. She was seen in clinic yesterday and given a shot of steroids and started on oral prednisone. She reports that her breathing is not improved today so she came to the emergency department. States she has COPD exacerbations approximately twice a year. No fever or chills. Occasional cough but this is chronic. No nausea or vomiting. No dizziness or lightheadedness. Also just feels like she cannot get her breath. - Related Data Allergies Allergy/AdvReac Type Severity Reaction Status Date / Time aspartame Allergy Anaphylactic Verified 12/12/20 22:25 Shock banana Allergy Shortness Verified 12/12/20 22:25 of Breath bee venom protein (honey bee) Allergy Shortness Verified 12/12/20 22:25 of Breath ciprofloxacin [From Cipro] Allergy Shortness Verified 12/12/20 22:25 of Breath clarithromycin [From Biaxin] Allergy Hives Verified 12/12/20 22:25 clindamycin Allergy Vomiting Verified 12/12/20 22:25 codeine Allergy Vomiting Verified 12/12/20 22:25 egg Allergy Vomiting Verified 12/12/20 22:25 erythromycin base Allergy Hives Verified 12/12/20 22:25 iodine Allergy Anaphylactic Verified 12/12/20 22:25 Shock levofloxacin [From Levaquin] Allergy Bronchospas Verified 12/12/20 22:25 ms lincomycin [From Lincocin] Allergy Shortness Verified 12/12/20 22:25 of Breath minerals [From Enviro Stress] Allergy Shortness Verified 12/12/20 22:25 of Breath mold Allergy Shortness Verified 12/12/20 22:25 of Breath nitrofurantoin Allergy Shortness Verified 12/12/20 22:25 [From Macrodantin] of Breath orange Allergy Swelling Verified 12/12/20 22:25 Penicillins Allergy Shortness Verified 12/12/20 22:25 of Breath shrimp Allergy Wheezing Verified 12/12/20 22:25 Sulfa (Sulfonamide Allergy Hives Verified 12/12/20 22:25 Antibiotics) vitamin B complex and C Allergy Shortness Verified 12/12/20 22:25 [From Enviro Stress] of Breath vitamin E (d-alpha Allergy Shortness Verified 12/12/20 22:25 tocopherol) of Breath [From Enviro Stress] CT dye Allergy Shortness Uncoded 12/12/20 22:25 of Breath Home Meds: Home Meds Acetaminophen [Tylenol Extra Strength] 1,000 mg PO Q4H PRN 03/26/17 [History] Albuterol [IJD: Ventolin HFA] 2 puff INH Q4H PRN 03/26/17 [History] Aspirin [Halfprin] 81 mg PO DAILY 03/26/17 [History] Calcium Carbonate [Calcium] 1,000 mg PO DAILY 03/26/17 [History] Cholecalciferol (Vitamin D3) [Vitamin D3] 2,000 unit PO DAILY 03/26/17 [History] Denosumab [Prolia] 60 mg SUBCUT Q180D 03/26/17 [History] Fish Oil/[place]-3 Fatty Acids [Fish Oil 1,000 MG] 1,000 mg PO BEDTIME 03/26/17 [History] Fluticasone Propionate [Flonase] 1 spray NASBOTH BID 03/26/17 [History] Hydrocodone/Acetaminophen [[place] 5-325] 1 tab PO BID PRN 03/26/17 [History] Levalbuterol HCl [Xopenex] 0.63 mg NEB Q4HRRT PRN 03/26/17 [History] Metoprolol Tartrate [Lopressor] 12.5 mg PO DAILY 03/26/17 [History] Montelukast [Singulair] 10 mg PO BEDTIME 03/26/17 [History] Mupirocin Oint [Bactroban Oint] 22 gm TOP TID PRN 03/26/17 [History] Omeprazole 20 mg PO ACBREAKFAST 03/26/17 [History] Theophylline [Theophylline Anhydrous] 300 mg PO BID 03/26/17 [History] Ubidecarenone [Coenzyme Q-10] 50 mg PO BEDTIME 03/26/17 [History] Vitamin E 400 unit PO BEDTIME 03/26/17 [History] diphenhydrAMINE HCL [Benadryl] 25 mg PO QID PRN 03/26/17 [History] Budesonide [Pulmicort] 0.5 mg IH BID 03/28/20 [History] Tiotropium [Spiriva HandiHaler] 18 mcg INH 1200 03/28/20 [History] Ascorbate Calcium [Vitamin C] 1,000 mg PO DAILY 10/17/20 [History] Cetirizine [ZyrTEC] 10 mg PO DAILY PRN 10/17/20 [History] Mepolizumab [Nucala] 100 mg SQ Q28D 10/17/20 [History] 0.9 % Sodium Chloride [Sodium Chloride] 3 ml IH BID PRN 11/15/20 [History] Heparin Sodium,Porcine/PF [Heparin IV Flush 100 Units/ml] 500 unit IV Q30D 11/15/20 [History] predniSONE [Prednisone] 2 tab PO DAILY 12/12/20 [History] Dextromethorphan/guaiFENesin [Mucinex DM ER 600-30 MG] 1 tab PO BID tab.er 12/16/20 [Rx] Digoxin [Digox] 125 mcg PO Q2D@0800 #0 12/16/20 [Rx] Doxycycline Monohydrate 100 mg PO BID cap 12/16/20 [Rx] Past Medical History HEENT History: Reports: Allergic Rhinitis, Cataract, Impaired Vision, Sinusitis, Other (See Below). Denies: Glaucoma, Hard of Hearing, Macular Degeneration, O titis Media, Retinal Detachment Other HEENT History: Facial/dental trauma secondary to a fall on 03/28/2020 with dental splint as below. Mild beginning cataracts with no surgery to this point, patient wears glasses Cardiovascular History: Reports: Arrhythmia, Heart Murmur, High Cholesterol, Other (See Below). Denies: Afib, Aneurysm, Blood Clots/VTE/DVT, CAD, Heart Failure, Hypertension, PR, PVD, Syncope Other Cardiovascular History: Short CO interval. Sinus arrhythmia and PSVT, benign heart murmur as a child, borderline hyperlipidemia with no medical therapy, varicose veins. Rheumatic Fever as child Respiratory History: Reports: Asthma, Bronchitis, Recurrent, COPD, Intubation, Previous, Pneumonia, Recurrent, Sleep Apnea, Other (See Below). Denies: Intubation, Difficult, PE, Pneumothorax, Pulmonary Fibrosis, TB Other Respiratory History: Severe O2 dependent COPD with current chronic use of 2 L/min by nasal cannula. Sleep apnea with patient not tolerating CPAP however she does use O2 as above. Gastrointestinal History: Reports: Cholelithiasis, Chronic Constipation, Chronic Diarrhea, Colon Polyp, Diverticulosis, Gastritis, GERD, GI Bleed, Irritable Bowel Syndrome, PUD, Other (See Below). Denies: Bowel Obstruction, Celiac Disease, Fatty Liver, Fecal Incontinence, Hepatitis, Helicobacter Pylori, Hiatal Hernia, Inflammatory Bowel Disease, Jaundice, Pancreatitis Other Gastrointestinal History: Peptic ulcer disease with history of GI bleed in the 1980s, sigmoid diverticulosis Genitourinary History: Reports: Renal Calculus, UTI, Recurrent, Other (See Below). Denies: Acute Renal Failure, Chronic Renal Insuffiency, STD, Urinary Incontinence Other Genitourinary History: Recurrent bilateral urolithiasis with moderate left-sided nephrolithiasis. 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 Menopause at age 53 with atrophic vaginitis. Musculoskeletal History: Reports: Arthritis, Back Pain, Chronic, Fracture, Fibromyalgia, Neck Pain, Chronic, Osteoarthritis, Osteoporosis, RA, Other (See Below). Denies: Gout, SLE Other Musculoskeletal History: Complex right radial and ulnar fracture in 3 different places at about age 14. Right wrist fracture at age 24, multiple bilateral finger fractures and feet bilaterally, scoliosis Neurological History: Reports: Concussion, Headaches, Chronic, Head Trauma, Migraines, Neuropathy, Peripheral, Other (See Below). Denies: Alzheimers Disease, Cerebral Aneurysms, CVA, MS, Parkinson's, Seizure, TIA, Vertigo Other Neuro History: Head concussion with small left-sided subdural hematoma on 03/28/2020 secondary to a fall with subsequent chronic headaches. Previous migraine headaches from age 24 until after menopause, cerebromicrovascular disease Psychiatric History: Reports: None. Denies: Abuse, Victim of, ADD, ADHD, Addiction, Anxiety, Depression, Psych Hospitalization(s), Psychosis, PTSD, Suicide Attempt, Suicidal Ideation Endocrine/Metabolic History: Reports: None, Hypomagnesemia, Osteopenia, Osteoporosis. Denies: Diabetes, Gestational, Diabetes, Type I, Diabetes, Type II, Diabetes Mellitus, Type 3c, Hypothyroidism, IDDM, Obesity/BMI 30+ Hematologic History: Reports: Anemia, Other (See Below). Denies: Blood Transfusion(s) Other Hematologic History: Macrocytosis. Previous anemia with chemotherapy at otherwise no problems. Immunologic History: Reports: None. Denies: AIDS, HIV, SLE Oncologic (Cancer) History: Reports: Breast, Other (See Below). Denies: Basal Cell Carcinoma, Cervix, Colon, Hodgkin's Lymphoma, Leukemia, Lymphoma, Malignant Melanoma, Metastatic, Non-Hodgkin's Lymphoma, Ovarian, Squamous Cell Carcinoma, Thyroid, Uterine Other Oncologic History: Right breast cancer in 2003 with surgery as below and additional chemotherapy and radiation therapy Dermatologic History: Reports: Eczema, Other (See Below). Denies: Psoriasis Other Dermatologic History: Lymphedema of the right arm secondary to previous partial mastectomy - Infectious Disease History Infectious Disease History: Reports: Measles, Mononucleosis (Recurrent with last episode in her 40s.), Mumps, Novel Coronavirus (10/18/2020 with only 1 Moderna immunization to this point.), Rheumatic Fever. Denies: C-Difficile, Chicken Pox, Meningitis, MRSA, Rubella, Shingles, TB, VRE - Past Surgical History Head Surgeries/Procedures: Reports: None. Denies: Craniotomy HEENT Surgical History: Reports: Oral Surgery, Other (See Below). Denies: Cataract Surgery, Eye Surgery, Laser Surgery, LASIK, Myringotomy w Tube(s), Naso-Sinus Surgery, Tonsillectomy Other HEENT Surgeries/Procedures: Multiple teeth extractions with additional placement of a dental splint on 03/28/2020 secondary to dental trauma as above. Cardiovascular Surgical History: Reports: None. Denies: Varicose Respiratory Surgical History: Reports: None. Denies: Thoracentesis GI Surgical History: Reports: Cholecystectomy, Colonoscopy, EGD, Polypectomy, Other (See Below). Denies: Appendectomy, Hernia, Abdominal, Hernia, Inguinal, Hernia Repair/Other Female Surgical History: Reports: Breast Biopsy, Cystoscopy, Lithotripsy/ESWL, Mastectomy, Other (See Below). Denies: D&C, Tubal Ligation Other Female Surgeries/Procedures: Partial mastectomy at age 53 in 2003 secondary to breast cancer with additional right breast biopsies on 07/20/2003, 07/20/2004, and 07/20/2007. lithotripsy 2 on the left side, cystoscopy on 03/10/01 Endocrine Surgical History: Reports: None. Denies: Thyroid Biopsy Neurological Surgical History: Reports: None. Denies: C-Spine, Discectomy, Laminectomy, Lumbar Spine, Sacral Spine, Spinal Fusion, Thoracic Spine, Vertebroplasty Musculoskeletal Surgical History: Reports: None. Denies: Arthroscopic Procedure, Carpal Tunnel, Ganglion Cyst, Joint Replacement, ORIF, Shoulder Surgery Oncologic Surgical History: Reports: Biopsy of Breast, Mastectomy, Other (See Below) Other Oncologic Surgeries/Procedures: Breast biopsies in partial meniscectomy as above. Other Dermatological Surgeries/Procedures: Excision of multiple benign moles. - Past Imaging History Past Imaging History: Reports: Cardiac Echo (12/21/12 with ejection fraction of 55%), Carotid US (05/10/02), CAT Scan (CT of the head x2 on 03/28/2020. CT of the abdomen and pelvis on 09/22/08, multiple CTs using renal protocol with last 2 evaluations on 07/24/10 and 05/30/[address]. CT of the chest on 05/25/2020, 06/14/12 and 04/23/06), DEXA Scan (05/10/2019), Mammogram (Last mammogram 2016), MRI (Brain on 08/28/10), Sleep Study (02/28/13), Ultrasound (Bladder on 04/22/2017. Abdominal aortic ultrasound on 01/06/13, abdominal ultrasound on 04/23/02 and 11/17/00, soft tissue ultrasound of the neck on 06/07/10, pelvic ultrasounds on 04/26/08 and 03/10/01) Social & Family History - Family History HEENT: Reports: Allergic Rhinitis, Sinusitis, Other (See Below). Denies: Glaucoma, Macular Degeneration (Anybody), Retinal Detachment Other HEENT Family History: Allergic rhinitis and sinusitis in mother and brother. Paternal grandfather with macular degeneration with secondary blindness. Cardiac: Reports: CAD, High Cholesterol, Hypertension, PR, Stent, Other (See Below). Denies: Afib, Aneurysm, Arrhythmia, Blood Clots/VTE/DVT Other Cardiac Family History: Paternal grandfather with PR in his 60s. Paternal uncle with possible fatal PR in his 70s with history of PTCA/stent. Brother with CABG x4 and history of PR in his 60s. Mother and brother with hyperlipidemia. Brother and sister with hypertension. Respiratory: Reports: Asthma, COPD, Other (See Below). Denies: PE, Pneumothorax, Sleep Apnea Other Respiratory Family Hisory: History of COPD and/or asthma and mother, father, brothers x2, sister and maternal grandfather. Brother and sister with sleep apnea. GI: Reports: Colon Polyps, Other (See Below). Denies: Celiac Disease, Cholelithiasis, GERD, GI bleed, Inflammatory Bowel Disease, Irritable Bowel Syndrome, PUD Other GI Family History: Maternal grandmother with colon cancer as below. : Reports: None. Denies: Renal Calculus, Renal Disease/Insufficiency OBGYN: Reports: None. Denies: Endometriosis, Recurrent Spontaneous Musculoskeletal: Reports: Arthritis, Osteoarthritis, RA, Other (See Below). Denies: Gout, SLE Other Musculoskeletal Family History: Sister with rheumatoid arthritis. Neurological: Reports: Alzheimers Disease, Dementia, Other (See Below). Denies: Cerebral Aneurysms, CVA, Migraines, MS, Parkinson's, Seizure, TIA Other Neurological Family History: Paternal grandmother and paternal great- grandmother with organic brain syndrome. Psychiatric: Reports: None. Denies: Abuse, Victim of, ADD, ADHD, Anxiety, Depression, Psych Hospitalization(s), PTSD, Suicide Attempt Endocrine/Metabolic: Reports: Diabetes, type II, IDDM, Other (See Below). Denies: Diabetes, Type I, Diabetes Mellitus, Type 3c, Hypothyroidism Other Endocrine/Metabolic Family History: Paternal uncle with AODM. Maternal uncle with IDDM. Hematologic: Reports: None. Denies: Anemia, SLE Immunologic: Reports: None. Denies: AIDS, HIV, SLE Dermatologic: Reports: Eczema, Other (See Below). Denies: Psoriasis Other Dermatologic Family History: Eczema in parents, paternal grandmother, maternal uncle, and paternal uncle. Oncologic: Reports: Breast, Colon, Other (See Below) Other Oncologic Family History: Paternal aunts x 3 with fatal breast cancer in their 60s70s. Sister with fatal breast cancer at age 67. Paternal grandmother with fatal breast cancer. Cousin with breast cancer. Maternal grandmother with fatal colon cancer in her 70s. Patient does not recall paternal uncle having lymphoma despite records from [place]. - Caffeine Use Caffeine Use: Reports: None. 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 Denies: Sputum Cardiovascular: Denies: Chest Pain, Palpitations GI/Abdominal: Denies: Abdominal Pain, Diarrhea, Nausea, Vomiting : Denies: Dysuria, Flank Pain, Urgency Neurological: Denies: Confusion, Dizziness ED EXAM, GENERAL - Physical Exam Exam: See Below Exam Limited By: No Limitations General Appearance: Alert, WD/WN Ears: Normal External Exam, Normal Canal, Normal TMs Nose: Normal Inspection, Normal Mucosa, No Blood Throat/Mouth: Normal Inspection, Normal Oropharynx Head: Atraumatic, Normocephalic Neck: Supple. No: Lymphadenopathy (L), Lymphadenopathy (R) Respiratory/Chest: Other (Breathing is shallow. Decreased air movement throughout. Diffuse expiratory wheezes.) GI/Abdominal: Normal Bowel Sounds, Soft, Non-Tender Course - Vital Signs Text/Narrative:: Patient remained stable while in the emergency department but did show increasing confusion. She was given Solu-Medrol 125 mg IV. Case discussed with Dr. Hollingsworth at [facility]. Given the patient's confusion and elevated CO2 level, will transfer to [place] in [place] for ongoing care and possible intubation if needed. Family is informed. Last Recorded V/S: Last Vital Signs Temp 36.2 C 03/16/21 18:30 Pulse 94 03/16/21 18:30 Resp 20 03/16/21 18:30 BP 104/60 03/16/21 18:30 Pulse Ox 96 03/16/21 18:30 - Orders/Labs/Meds Orders: Active Orders 24 hr Category Date Time Status Patient Status Manage Transfer [TRANSFER] Routine ADT 03/16/21 18:20 Active Chest 2V [CR] Stat Exams 03/16/21 15:39 Taken Peripheral IV Insertion Adult [OM.PC] Routine Oth 03/16/21 15:40 Ordered Labs: Laboratory Tests 03/16/21 03/16/21 03/16/21 Range/Units 15:40 15:40 15:40 WBC 9.9 (4.0-10.2) K/uL RBC 4.48 (3.77-5.09) M/uL Hgb 13.8 (11.7-15.5) g/dL Hct 46.7 H (34.0-46.0) % MCV 104.2 H D (84.0-98.0) fL MCH 30.8 (28.2-33.3) pg MCHC 29.6 L (31.7-36.0) g/dL RDW 13.1 (11.2-14.1) % Plt Count 263 (150-350) K/uL Neut % (Auto) 88.0 H (45.0-80.0) % Lymph % (Auto) 5.9 L (10.0-50.0) % [place] % (Auto) 5.8 (2.0-14.0) % Eos % (Auto) 0.1 (0.0-5.0) % Baso % (Auto) 0.2 (0.0-2.0) % Neut # (Auto) 8.74 H (1.40-7.00) K/uL Lymph # (Auto) 0.59 (0.50-3.50) K/uL [place] # (Auto) 0.58 (0.00-1.00) K/uL Eos # (Auto) 0.01 (0.00-0.50) K/uL Baso # (Auto) 0.02 (0.00-0.20) K/uL Sodium 140 (136-145) mmol/L Potassium 4.7 (3.5-5.1) mmol/L Chloride 98 (98-107) mmol/L Carbon Dioxide 51.2 H* (21.0-32.0) mmol/L Anion Gap -4.5 L (7-15) meq/L BUN 20 H (7-18) mg/dL Creatinine 0.70 (0.51-1.17) mg/dL Est Cr Clr Drug Dosing TNP Estimated GFR (MDRD) > 60 mL/min Glucose 151 H (70-99) mg/dL Calcium 9.4 (8.5-10.1) mg/dL Total Bilirubin 0.4 (0.2-1.0) mg/dL AST 14 L (15-37) U/L ALT 17 (12-78) U/L Alkaline Phosphatase 70 (46-116) IU/L Troponin I High Sens 43 (<=51) ng/L Total Protein 7.1 (6.4-8.2) g/dL Albumin 3.6 (3.4-5.0) g/dL Digoxin 1.26 (0.90-2.00) ng/mL SARS-CoV-2 RNA (MARIA E) (NEGATIVE) 03/16/21 Range/Units 15:55 WBC (4.0-10.2) K/uL RBC (3.77-5.09) M/uL Hgb (11.7-15.5) g/dL Hct (34.0-46.0) % MCV (84.0-98.0) fL MCH (28.2-33.3) pg MCHC (31.7-36.0) g/dL RDW (11.2-14.1) % Plt Count (150-350) K/uL Neut % (Auto) (45.0-80.0) % Lymph % (Auto) (10.0-50.0) % [place] % (Auto) (2.0-14.0) % Eos % (Auto) (0.0-5.0) % Baso % (Auto) (0.0-2.0) % Neut # (Auto) (1.40-7.00) K/uL Lymph # (Auto) (0.50-3.50) K/uL [place] # (Auto) (0.00-1.00) K/uL Eos # (Auto) (0.00-0.50) K/uL Baso # (Auto) (0.00-0.20) K/uL Sodium (136-145) mmol/L Potassium (3.5-5.1) mmol/L Chloride (98-107) mmol/L Carbon Dioxide (21.0-32.0) mmol/L Anion Gap (7-15) meq/L BUN (7-18) mg/dL Creatinine (0.51-1.17) mg/dL Est Cr Clr Drug Dosing Estimated GFR (MDRD) mL/min Glucose (70-99) mg/dL Calcium (8.5-10.1) mg/dL Total Bilirubin (0.2-1.0) mg/dL AST (15-37) U/L ALT (12-78) U/L Alkaline Phosphatase (46-116) IU/L Troponin I High Sens (<=51) ng/L Total Protein (6.4-8.2) g/dL Albumin (3.4-5.0) g/dL Digoxin (0.90-2.00) ng/mL SARS-CoV-2 RNA (MARIA E) Negative (NEGATIVE) Meds: Medications Discontinued Medications Generic Name Dose Route Start Last Admin Trade Name Freq PRN Reason Stop Dose Admin Sodium Chloride 500 mls @ 250 mls/hr 03/16/21 16:15 03/16/21 16:14 Normal Saline IV 250 mls/hr ASDIRECTED MARTÍNEZ Administration Methylprednisolone Sodium Succinate 125 mg 03/16/21 16:01 03/16/21 16:14 Methylprednisolone Sodium Succinate 125 Mg/2 Ml Sdv IVPUSH 03/16/21 16:02 125 mg ONETIME ONE Administration Sodium Chloride 10 ml 03/16/21 15:40 Sodium Chloride 0.9% 10 Ml Syringe FLUSH ASDIRECTED PRN Keep Vein Open - Radiology Interpretation Free Text/Narrative:: AP and lateral views of the chest. Findings: The lungs are hyperexpanded. Normal cardiac silhouette. No infiltrate. No free air. Departure - Departure Time of Disposition: 18:15 Disposition: DC/Tfer to [facility] 02 Clinical Impression: COPD (chronic obstructive pulmonary disease) Qualifiers: COPD type: emphysema Emphysema type: panlobular Qualified Code(s): J43.1 - Panlobular emphysema - Discharge Information *PRESCRIPTION DRUG MONITORING PROGRAM REVIEWED*: Not Applicable *COPY OF PRESCRIPTION DRUG MONITORING REPORT IN PATIENT JIMMIE: Not Applicable Referrals: Neris Ribera NP [Primary Care Provider] - Forms: ED Department Discharge - My Orders Last 24 Hours: My Active Orders 03/16/21 15:39 Chest 2V [CR] Stat 03/16/21 15:40 Peripheral IV Insertion Adult [OM.PC] Routine 03/16/21 18:20 Patient Status Manage Transfer [TRANSFER] Routine - Assessment/Plan Last 24 Hours: My Active Orders 03/16/21 15:39 Chest 2V [CR] Stat 03/16/21 15:40 Peripheral IV Insertion Adult [OM.PC] Routine 03/16/21 18:20 Patient Status Manage Transfer [TRANSFER] Routine
[2021-03-16] MEDS ORDERED: methylPREDNISolone Sodium Succinate 125 MG/2 ML SDV IVPUSH ONE (16:01)
[2021-03-16 16:15] LABS: CHLORIDE,CL 98 mmol/L (98-107); SODIUM,NA 140 mmol/L (136-145)
[2021-03-16] MEDS ORDERED: Sodium Chloride 0.9% 500 ML IV SCH (16:15)
[2021-03-16 16:35] LABS: ANION GAP -4.5 meq/L (7-15)
[2021-03-16 18:34] VITALS: BP 104/60; PULSE 94
== END 2021-03-16 19:02 ==
LOC: LL.ED 15:22
DX: J43.1 Panlobular emphysema (principal); E78.00 Pure hypercholesterolemia, unspecified; I25.10 Atherosclerotic heart disease of native coronary artery without angina pectoris; I10 Essential (primary) hypertension; I25.2 Old myocardial infarction; Z86.718 Personal history of other venous thrombosis and embolism; Z91.030 Bee allergy status; Z91.018 Allergy to other foods; Z88.8 Allergy status to other drugs, medicaments and biological substances; Z91.012 Allergy to eggs; Z88.5 Allergy status to narcotic agent; Z91.041 Radiographic dye allergy status; Z91.09 Other allergy status, other than to drugs and biological substances; Z91.048 Other nonmedicinal substance allergy status; Z88.2 Allergy status to sulfonamides; Z88.1 Allergy status to other antibiotic agents; Z20.822 Contact with and (suspected) exposure to COVID-19
CPT/HCPCS: 36415; 71046; 80053; 80162; 84484; 85025; 96374; 99284; 99285-25; J2930; J7040; U0002